=== PATIENT | male | born 1975 | race Caucasian/White ===

== ENCOUNTER 2017-04-30 10:07 | Day surgery (SDC) | payer OTHER ==
[2017-04-25 12:49] VITALS: BMI 30.7
--- NOTE | 2017-04-30 07:26 | HP ---
History & Physical Update - History History: No Change - Physical Physical: No Change - Assessment Assessment: No Change - Plan Plan: No Change (b/l LE pain...L>R.)
[~2017-04-30 10:07] MED LIST: CEFAZOLIN 2 GM in DEXTROSE 5%-WATER - 100 ML IVPB ONE; GABAPENTIN 300 MG CAPSULE (FP) PO ONE; oxyCODONE HCL 10 MG SUSTAINED ACTING TABLET PO STA
[2017-04-30] MEDS ORDERED: BUPIVACAINE HCL/PF 2.5 MG/ML - 30 ML VIAL IJ ONE (10:44)
[2017-04-30] MEDS ORDERED: LIDOCAINE 1%/EPI 1:100000 (20 ML MULTI DOSE VIAL) ONE (10:44)
[2017-04-30] MEDS ORDERED: methylPREDNISolone ACET (DEPO) 40 MG/1 ML VIAL ONE (10:48)
[2017-04-30] MEDS ORDERED: BUPIVACAINE HCL/PF 0.5% (5MG/ML) 10 ML VIAL ONE (10:53)
[2017-04-30] MEDS ORDERED: MIDAZOLAM HCL 2 MG/2 ML SINGLE DOSE VIAL ONE ×4 (10:54→12:30)
[2017-04-30] MEDS ORDERED: LIDOCAINE 1%/EPI 1:100000 (50 ML MULTI DOSE VIAL) INF ONE (11:28)
[2017-04-30] MEDS ORDERED: THROMBIN (BOVINE) 5,000 UNIT VIAL TP ONE (12:05)
[2017-04-30] MEDS ORDERED: BUPIVACAINE HCL/PF 0.25% (2.5MG/ML) 10 ML VIAL IJ ONE (12:06)
[2017-04-30] MEDS ORDERED: DEXAMETHASONE SOD PHOSPHATE 20 MG/5 ML VIAL IVPB ONE (12:56)
[2017-04-30] MEDS ORDERED: GUM MASTIC/STORAX/MSAL/ALCOHOL 1 DRP DROPSBTL MC ONE (13:13)
--- NOTE | 2017-04-30 13:27 | OP ---
Operative Note - Note: Operative Date: 04/30/17 Pre-Operative Diagnosis: Lumbar stenosis; radiculopathy Operation: L4-S1 laminectomy (bilateral) Post-Operative Diagnosis: Same as Pre-op Surgeon: Deejay Escamilla Emd Teacher: Maximiliano Hernandez Anesthesiologist/PRESCRIPTION BENEFIT SPECIALIST: Xavier Hernández Anesthesia: Spinal Estimated Blood Loss (mls): 25 Fluid Volume Replaced (mls): 1,000 Operative Report Dictated: Yes
[2017-04-30] MEDS ORDERED: traMADol HCL 50 MG TABLET PO ONE (13:28)
[2017-04-30] MEDS ORDERED: ACETAMINOPHEN 1000 MG/100 ML VIAL (NON FORMULARY) IVPB ONE (13:28)
--- NOTE | 2017-04-30 13:28 | SURG ---
Surgery Garment Examiner Note Garment Examiner: Maximiliano Hernandez PA-C Date of Service: 04/30/17 Diagnosis: Spinal stenosis Procedure: L4-S1 laminectomy (bilateral) I was present for the entirety of the operative procedure. For further detail, please refer to operative report. Visit type - Case Type Case Type: Scheduled Admission - New patient This patient is new to me today: Yes Date on this admission: 04/30/17
[2017-04-30] MEDS ORDERED: oxyCODONE HCL 5 MG TABLET PO PRN (13:35)
[2017-04-30] MEDS ORDERED: ONDANSETRON 4 MG/2 ML VIAL IVPUSH PRN (13:35)
[2017-04-30] MEDS ORDERED: PROMETHAZINE HCL 25 MG/1 ML VIAL IVPUSH PRN (13:35)
[2017-04-30] MEDS ORDERED: LACTATED RINGERS SOLUTION 1,000 ML IV SCH (13:45)
[2017-04-30] MEDS ORDERED: oxyCODONE HCL 5 MG TABLET ONE ×2 (15:42→15:44)
[2017-04-30 18:36] VITALS: TEMP 98.2
[2017-04-30 18:55] VITALS: BP 122/70; PULSE 72
--- NOTE | 2017-05-01 07:24 | OP ---
DATE OF OPERATION: 04/30/2017 PREOPERATIVE DIAGNOSIS: Spinal stenosis, L4-L5. POSTOPERATIVE DIAGNOSIS: Spinal stenosis, L4-L5. PROCEDURE PERFORMED: Laminectomy, L4-L5, L5-S1. SURGEON: Deejay Escamilla MD VEGETABLE FARMER: EDWIN Lara ESTIMATED BLOOD LOSS: 50 mL. INTRAVENOUS FLUID: Per Anesthesia. COMPLICATIONS: There were none. ANESTHESIA: Spinal. DISPOSITION: Patient brought to the PACU in stable condition. INDICATIONS FOR SURGERY: The patient is a 41-year-old gentleman who has been suffering from pain from his back down his legs. X-rays and MRI were completed, which noted that he had spinal stenosis at L4-L5 and L5-S1. He had gone through an exhaustive course of treatment for this which included medications, physical therapy, as well as injections. Unfortunately, his pain continued to persist despite all this. At this point, risks, benefits, and alternatives were discussed, and the patient consented to surgery. OPERATIVE NOTE: Patient was brought to the operating room by anesthesia staff. After appropriate patient identification was performed, spinal anesthesia was given. The patient was able to position himself prone onto the Socrates frame. All areas of bony prominences were well-padded at this time. The needle was placed into his back to chato off the L4 and S1 segments. An x-ray was taken to confirm the needles track. The needle was removed, and 10 mL of lidocaine with epinephrine was injected into his back at this time. His back was prepped and draped in a sterile manner. At this point, a time-out was completed. An incision was made from the top of L4 down to the bottom of S1. Dissection was carried down to the fascia. Fascia was split open at this time, and appropriate retractors were then placed in. A spinal needle was placed onto the L4 lamina to chato off the L4-L5 level. An x-ray was taken to confirm this was correct. At this point, a microscope was brought in. The L4-L5 and L5-S1 interspinous ligament was removed. The L5 spinous process was removed. A james was used to remove the lamina. Segment was identified and removed, and complete decompression was performed, such that by the end of the procedure, the L5 and S1 nerve roots appeared to be well decompressed. All bleeding was well controlled at this time. Steroids were placed over the nerve root. Floseal was placed over that. The fascia was closed with a No. 1 Vicryl suture. The subcutaneous tissues were closed with 2-0 Vicryl suture. Skin was closed with 3-0 Monocryl suture. Dermabond was applied. Steri-Strips were applied, and sterile dressings applied. Patient was placed supine on the OR bed and was brought to the PACU in stable condition. Brandie STOCK/[id number]
== END 2017-04-30 16:30 | disposition home or self-care (01) ==
LOC: FASU 10:07
PROVIDERS: ATTEND Orthopaedic Surgery Orthopaedic Surgery of the Spine
PROC: 01NB0ZZ Release Lumbar Nerve, Open Approach (ICD-10-PCS; principal; 2017-04-30 11:16)
DX: M48.06 Spinal stenosis, lumbar region (principal); M48.07 Spinal stenosis, lumbosacral region
CPT/HCPCS: 72100-TC; 94760; J8540

== ENCOUNTER 2017-05-22 14:42 | Emergency (ER) | payer OTHER ==
--- NOTE | 2017-05-22 15:23 | PDOC ---
History of Present Illness - History of Present Illness Initial Comments: 05/22/17 15:32 The patient is a 41 year old male, with a significant past medical history of L4 -S1 laminectomy on 04/30/[address] Villalba and EDWIN Lara for lumbar stenosis and radiculopathy, who presents to the emergency department with complaint of persistent pain to his left lower since 1 week s/p surgery on 04/30/17. The patient states he saw the surgeon a week following his surgery and was given prescription for percocet. He also reports having an epidural about a week after surgery with his pain management physician. He denies pain relief from the epidural and percocets. He states he need to take 10 percocets before feeling pain relief. He also states he does not have any percocet left. He also reports receiving a prescription for gabapentin, but denies filling the prescription. He denies chest pain, shortness of breath, headache and dizziness. He denies fever, chills, nausea, vomit, diarrhea and constipation. He denies dysuria, frequency, urgency and hematuria. Allergies: NKDA Pain Management: Dr. Rafita Urbano ([phone]) <Marysol Hauser - Last Filed: 05/22/17 15:56> - General History Source: Patient Exam Limitations: No Limitations <Sowmya De - Last Filed: 05/22/17 16:04> - General Chief Complaint: Back Pain Stated Complaint: LOWER BACK PAIN, LEFT LEG Time Seen by Provider: 05/22/17 15:06 Past History <Marysol Hauser - Last Filed: 05/22/17 15:56> - Past Medical History Anemia: No Asthma: No Cancer: No Cardiac Disorders: No CVA: No COPD: No CHF: No Dementia: No Diabetes: No GI Disorders: Yes (BENÍTEZ'S ESOPHAGUS 2009) Disorders: No HTN: No Hypercholesterolemia: No Liver Disease: No Seizures: No Thyroid Disease: No - Surgical History Abdominal Surgery: No Appendectomy: No Cardiac Surgery: No Cholecystectomy: No Lung Surgery: No Neurologic Surgery: No Orthopedic Surgery: No - Psycho/Social/Smoking Cessation Hx Anxiety: No Suicidal Ideation: No Smoking History: Former smoker Have you smoked in the past 12 months: No If you are a former smoker, when did you quit?: 2007 Information on smoking cessation initiated: No Hx Alcohol Use: No Drug/Substance Use Hx: No Substance Use Type: Alcohol Hx Substance Use Treatment: No <Sowmya De - Last Filed: 05/22/17 16:04> - Past Medical History Allergies/Adverse Reactions: Allergies Allergy/AdvReac Type Severity Reaction Status Date / Time No Known Drug Allergies Allergy Verified 05/22/17 14:43 Home Medications: Ambulatory Orders Oxycodone HCl/Acetaminophen [Percocet 5-325 mg Tablet] 1 tab PO TID PRN Orphenadrine Citrate 100 mg PO Q12H PRN #20 tablet.er 04/30/17 Tramadol HCl 50 mg PO Q6H PRN #30 tablet MDD 4 04/30/17 Review of Systems - Review of Systems Able to Perform ROS?: Yes Comments:: 05/22/17 15:33 GENERAL/CONSTITUTIONAL: No fever or chills. No weakness. HEAD, EYES, EARS, NOSE AND THROAT: No change in vision. No ear pain or discharge. No sore throat. CARDIOVASCULAR: No chest pain or shortness of breath. RESPIRATORY: No cough, wheezing, or hemoptysis. GASTROINTESTINAL: No nausea, vomiting, diarrhea or constipation. GENITOURINARY: No dysuria, frequency, or change in urination. MUSCULOSKELETAL: (+) right lower extremity pain. No joint pain or muscle swelling. No neck. SKIN: No rash NEUROLOGIC: No headache, vertigo, loss of consciousness, or change in strength/ sensation. ENDOCRINE: No increased thirst. No abnormal weight change. HEMATOLOGIC/LYMPHATIC: No anemia, easy bleeding, or history of blood clots. ALLERGIC/IMMUNOLOGIC: No hives or skin allergy. <Marysol Hauser - Last Filed: 05/22/17 15:56> *Physical Exam - Vital Signs Last Vital Signs Temp Pulse Resp BP Pulse Ox 99.3 F 98 H 20 152/101 97 05/22/17 14:43 05/22/17 14:43 05/22/17 14:43 05/22/17 14:43 05/22/17 14:43 - Physical Exam Comments: 05/22/17 15:34 GENERAL: Awake, alert, and fully oriented, in no acute distress HEAD: No signs of trauma EYES: PERRLA, EOMI, sclera anicteric, conjunctiva clear ENT: Auricles normal inspection, hearing grossly normal, nares patent, oropharynx clear without exudates. Moist mucosa NECK: Normal ROM, supple, no lymphadenopathy, JVD, or masses LUNGS: Breath sounds equal, clear to auscultation bilaterally. No wheezes, and no crackles HEART: Regular rate and rhythm, normal S1 and S2, no murmurs, rubs or gallops ABDOMEN: Soft, nontender, normoactive bowel sounds. No guarding, no rebound. No masses EXTREMITIES: Normal range of motion, no edema. No clubbing or cyanosis. No cords, erythema, or tenderness NEUROLOGICAL: Cranial nerves II through XII grossly intact. Normal speech, normal gait SKIN: Warm, Dry, normal turgor, no rashes or lesions noted. <Marysol Hauser - Last Filed: 05/22/17 15:56> - Vital Signs Last Vital Signs Temp Pulse Resp BP Pulse Ox 99.3 F 98 H 20 152/101 97 05/22/17 14:43 05/22/17 14:43 05/22/17 14:43 05/22/17 14:43 05/22/17 14:43 <Sowmya De - Last Filed: 05/22/17 16:04> Medical Decision Making - Medical Decision Making 05/22/17 15:34 Dr. Rafita Urbano was paged requesting a call back for doctor to doctor consult at 15:31 05/22/17 15:42 Dr. Andi Villalba, orthopedic surgeon, was paged via phone answering service at this time and the patients case was discussed. Dr. Villalba reports the patients was supposed to brain picker pain medication and a medrol dose pack prescribed by Dr. Urbano (Pain Management) for the patient today, however, failed to do so. Dr. Villalba suggested us to treat the patients pain at this time and possible give the patient a Valium and have follow-up with pain management. Dr. Urbano returned the call at 15:50 and the patients case was discussed. Dr. Urbano states he will see the patient in the office tomorrow. Documentation prepared by Marysol Hauser, acting as medical front desk coordinator for Sowmya De MD <Marysol Hauser - Last Filed: 05/22/17 15:56> - Medical Decision Making 05/22/17 15:20 41 yo male with h/o recent laminectomy [address] Hernandez [address] Dr Andi Villalba, currently taking percocet for pain. here today because pain is unbearable. started one week post op. lower back radiating down his left leg. pain goes to fuller knee and ankle. no f/c no mod factors. d/w surgeon 2 weeks ago for post op who started him on percocet and epidural. states he ran out of percocet so here for pain. surgeon called in gabapentin which he hasn't filled yet. pt states he is addicted to the opiates, and had a bottle pills which was gone in few days. has been on percocet 10 mg prior to surgery. also has had several epidurals, and been on steroids, and was recently given gabapentin which he has not picked up yet. 05/22/17 15:39 05/22/17 16:01 dW pt pain management doctor dr urbano, who states pt has prescription waiting for him at Dr. Escamilla's office for percocet 10/ 325 # 30, and medrol dose alfie. jose maria see pt in the office tomorrow. orthopedic surgeon Dr Andi Parrish notified, that there is medication in the office that the pt is supposed to brain picker. <Sowmya De - Last Filed: 05/22/17 16:04> *DC/Admit/Observation/Transfer <Marysol Hauser - Last Filed: 05/22/17 15:56> - Discharge Dispostion Admit: No <Sowmya De - Last Filed: 05/22/17 16:04> Diagnosis at time of Disposition: Back pain - Discharge Dispostion Disposition: HOME Condition at time of disposition: Improved - Patient Instructions Printed Discharge Instructions: Back Pain (Alternative Therapy) Additional Instructions: you can take percocet 10/ 325 which has been prescribed by Dr Escamilla. you can see your pain management doctor Dr Urbano in the office tomorrow. call to schedule. return for any problems or concerns such as weaknes numbness tingling or any fever.
[2017-05-22 15:28] VITALS: BP 152/101; PULSE 98; TEMP 99.3; BMI 31.4
[2017-05-22] MEDS ORDERED: KETOROLAC TROMETHAMINE 60 MG/2 ML VIAL IM ONE (15:32)
[2017-05-22] MEDS ORDERED: diazePAM 5 MG TABLET PO ONE (15:32)
[2017-05-22] MEDS ORDERED: diazePAM 5 MG TABLET ONE (15:35)
[2017-05-22] MEDS ORDERED: KETOROLAC TROMETHAMINE 60 MG/2 ML VIAL ONE (15:35)
== END 2017-05-22 16:28 | disposition home or self-care (01) ==
LOC: FER 14:42
PROC: 3E0233Z Introduction of Anti-inflammatory into Muscle, Percutaneous Approach (ICD-10-PCS; principal; 2017-05-22)
DX: M54.5 Low back pain (principal); Z87.891 Personal history of nicotine dependence; K22.70 Barrett's esophagus without dysplasia
CPT/HCPCS: 99282-25

== ENCOUNTER 2017-05-28 14:59 | Inpatient (IN) | payer OTHER ==
[2017-05-28 15:06] VITALS: BMI 31.4
--- NOTE | 2017-05-28 15:40 | PDOC ---
History of Present Illness - General Chief Complaint: Pain Stated Complaint: POST-OP (PCP SENT) Time Seen by Provider: 05/28/17 15:17 History Source: Patient Exam Limitations: No Limitations - History of Present Illness Initial Comments: 05/28/17 15:40 CHIEF COMPLAINT: Back pain HISTORY OF PRESENT ILLNESS: This is an otherwise healthy 41 year old male who underwent L4-S1 laminectomy (bilateral) on 04/[address] Escamilla. He has had persistent, worsening low back pain and left leg weakness since then. He had an epidural at [facility] without relief. He is sent in by his neurosurgeon for revision of a dural tear and pseudomeningocele. Vital signs on arrival are notable for P of 96. REVIEW OF SYSTEMS: GENERAL/CONSTITUTIONAL: No fever or chills. No weakness. No weight change. HEAD, EYES, EARS, NOSE AND THROAT: No change in vision. No ear pain or discharge. No sore throat. CARDIOVASCULAR: No chest pain or palpitations. RESPIRATORY: No cough, wheezing, or shortness of breath. GASTROINTESTINAL: No nausea, vomiting, diarrhea or constipation. GENITOURINARY: No dysuria, frequency, or change in urination. MUSCULOSKELETAL: See HPI. SKIN: No rash or easy bruising. NEUROLOGIC: No headache, vertigo, or loss of consciousness. Left leg numbness. PSYCHIATRIC: No depression or anxiety. ENDOCRINE: No increased thirst. No abnormal weight change. HEMATOLOGIC/LYMPHATIC: No anemia, easy bleeding, or history of blood clots. ALLERGIC/IMMUNOLOGIC: No hives or skin allergy. No latex allergy. PHYSICAL EXAM: GENERAL: The patient is awake, alert, and fully oriented, in no acute distress. HEAD: Normal with no signs of trauma. ENT: Pupils equal, round and reactive to light, extraocular movements intact, sclera anicteric, conjunctiva clear. Neck supple. LUNGS: Clear to auscultation bilaterally. Normal excursion. No respiratory distress or use of accessory muscles. CV: RRR, S1/S2, no MRG. Cap refill < 2 sec. ABDOMEN: Soft, non-distended, non-tender. EXTREMITIES: Pain with left straight leg raise. 4/5 LLE strength. No saddle anesthesia. Lumbar frederick-incision fullness without tenderness. NEUROLOGICAL: Normal speech. CN II-XII grossly intact. PSYCH: Normal mood, normal affect. SKIN: Warm, dry, normal turgor, no rashes or lesions noted. Past History - Past Medical History Allergies/Adverse Reactions: Allergies Allergy/AdvReac Type Severity Reaction Status Date / Time No Known Drug Allergies Allergy Verified 05/28/17 15:06 Home Medications: Ambulatory Orders Oxycodone HCl/Acetaminophen [Percocet 5-325 mg Tablet] 1 tab PO TID PRN Orphenadrine Citrate 100 mg PO Q12H PRN #20 tablet.er 04/30/17 Tramadol HCl 50 mg PO Q6H PRN #30 tablet MDD 4 04/30/17 Anemia: No Asthma: No Cancer: No Cardiac Disorders: No CVA: No COPD: No CHF: No Dementia: No Diabetes: No GI Disorders: Yes (BENÍTEZ'S ESOPHAGUS 2009) Disorders: No HTN: No Hypercholesterolemia: No Liver Disease: No Seizures: No Thyroid Disease: No - Surgical History Abdominal Surgery: No Appendectomy: No Cardiac Surgery: No Cholecystectomy: No Lung Surgery: No Neurologic Surgery: No Orthopedic Surgery: No - Psycho/Social/Smoking Cessation Hx Anxiety: No Suicidal Ideation: No Smoking History: Never smoked Have you smoked in the past 12 months: No If you are a former smoker, when did you quit?: 2007 Information on smoking cessation initiated: No Hx Alcohol Use: No Drug/Substance Use Hx: No Substance Use Type: Alcohol Hx Substance Use Treatment: No *Physical Exam - Vital Signs Last Vital Signs Temp Pulse Resp BP Pulse Ox 98 F 106 H 18 112/59 98 05/28/17 15:03 05/28/17 15:03 05/28/17 15:03 05/28/17 15:03 05/28/17 15:03 ED Treatment Course - LABORATORY CBC & Chemistry Diagram: 05/28/17 15:42 05/28/17 15:42 - RADIOLOGY Radiology Studies Ordered: Category Date Time Status CHEST X-RAY PORTABLE* [RAD] Stat Radiology 05/28/17 15:18 Ordered Medical Decision Making - Medical Decision Making 05/28/17 17:27 A/P: 41 year old male with intractable pain s/p laminectomy. 1. Pre-op labs 2. Percocet x 2 tabs for pain 3. Admission for surgery tomorrow *DC/Admit/Observation/Transfer Diagnosis at time of Disposition: Dural tear, Pseudomeningocele of spinal cord - Discharge Dispostion Admit: Yes
[2017-05-28 15:54] LABS: EOSINOPHIL 3.7 % (0-4.5); MCH 30.3 pg (25.7-33.7); MCHC 33.8 g/dl (32.0-35.9); MEAN CELL VOLUME 89.7 fl (80-96); MEAN PLT VOLUME 7.1 fl (7.5-11.1); PLATELET COUNT 320 K/MM3 (134-434); RDW 14.8 % (11.9-15.9); WHITE BLOOD COUNT 8.9 K/mm3 (4.0-10.0)
[2017-05-28 16:08] LABS: ALBUMIN 3.2 g/dl (3.4-5.0); ANION GAP 10 (8-16); CALCIUM 8.5 mg/dL (8.5-10.1); CO2 25 mmol/L (21-32); CREATININE 0.7 mg/dL (0.7-1.3); GLUCOSE,RANDOM 87 mg/dL (74-106); SGOT/AST 26 U/L (15-37); SGPT/ALT 61 U/L (12-78)
[2017-05-28 16:09] LABS: ALK PHOS 44 U/L (45-117); BILIRUBIN,TOTAL 0.4 mg/dL (0.2-1.0); TOT PROT 6.3 g/dl (6.4-8.2)
[2017-05-28 16:25] LABS: INR 1.16 (0.82-1.09); PROTHROMBIN TIME (PATIENT) 12.8 SEC (9.98-11.88)
--- NOTE | 2017-05-28 18:18 | HP ---
Admitting History and Physical - Primary Care Physician PCP: Jayesh Hernandez - Admission History of Present Illness: 41 year old male who underwent L4-S1 laminectomy (bilateral) on 04/[address] Escamilla. He has had persistent, worsening low back pain and left leg weakness since then. He had an epidural at [facility] without relief. He is sent in by his neurosurgeon for revision of a dural tear and pseudomeningocele. - Past Medical History Musculoskeletal: Yes: Chronic low back pain - Smoking History Smoking history: Never smoked Have you smoked in the past 12 months: No If you are a former smoker, when did you quit?: 2007 - Alcohol/Substance Use Hx Alcohol Use: No Home Medications - Allergies Allergies/Adverse Reactions: Allergies Allergy/AdvReac Type Severity Reaction Status Date / Time No Known Drug Allergies Allergy Verified 05/28/17 15:06 - Home Medications Home Medications: Ambulatory Orders Oxycodone HCl/Acetaminophen [Percocet 5-325 mg Tablet] 1 tab PO QID PRN Physical Examination Vital Signs: Vital Signs Temperature 98 F 05/28/17 15:03 Pulse Rate 75 05/28/17 17:14 Respiratory Rate 18 05/28/17 17:14 Blood Pressure 110/74 05/28/17 17:14 O2 Sat by Pulse Oximetry (%) 96 05/28/17 17:14 Constitutional: Yes: No Distress HENT: Yes: Atraumatic Neck: Yes: Supple Cardiovascular: Yes: Regular Rate and Rhythm Respiratory: Yes: CTA Bilaterally Gastrointestinal: Yes: Normal Bowel Sounds Extremities: Yes: WNL Neurological: Yes: Alert, Oriented Problem List - Problems (1) Dural tear Assessment/Plan: neuro surgeon saw pt for OR in am Code(s): G96.11 - DURAL TEAR (2) Pseudomeningocele of spinal cord Code(s): G96.19 - OTHER DISORDERS OF MENINGES, NOT ELSEWHERE CLASSIFIED (3) Back pain Assessment/Plan: prn pain meds npo after midnight for procedure in am Code(s): M54.9 - DORSALGIA, UNSPECIFIED Assessment/Plan Laboratory Tests 05/28/17 05/28/17 05/28/17 15:37 15:42 15:42 WBC 8.9 RBC 5.04 Hgb 15.3 Hct 45.2 MCV 89.7 MCH 30.3 MCHC 33.8 RDW 14.8 Plt Count 320 MPV 7.1 L Neutrophils % 65.0 Lymphocytes % 21.2 Monocytes % 9.1 Eosinophils % 3.7 Basophils % 1.0 INR 1.16 H Sodium Potassium Chloride Carbon Dioxide Anion Gap BUN Creatinine Creat Clearance w eGFR Random Glucose Calcium Total Bilirubin AST ALT Alkaline Phosphatase Total Protein Albumin Blood Type B POSITIVE Antibody Screen Negative 05/28/17 15:42 WBC RBC Hgb Hct MCV MCH MCHC RDW Plt Count MPV Neutrophils % Lymphocytes % Monocytes % Eosinophils % Basophils % INR Sodium 140 Potassium 4.1 Chloride 105 Carbon Dioxide 25 Anion Gap 10 BUN 13 Creatinine 0.7 Creat Clearance w eGFR > 60 Random Glucose 87 Calcium 8.5 Total Bilirubin 0.4 AST 26 ALT 61 Alkaline Phosphatase 44 L Total Protein 6.3 L Albumin 3.2 L Blood Type Antibody Screen Active Medications Generic Name Dose Route Start Last Admin Trade Name Freq PRN Reason Stop Dose Admin Docusate Sodium 100 mg 05/30/17 10:00 Colace - PO DAILY LEENA Heparin Sodium (Porcine) 5,000 unit 05/29/17 22:00 Heparin - SQ BID LEENA Hydromorphone HCl 0 mg 05/29/17 14:48 Dilaudid Priming Mixture Carrier - METAL SPRAY OPERATOR 06/05/17 14:29 METAL SPRAY OPERATOR LEENA Protocol Lactated Ringer's 1,000 mls @ 125 mls/hr 05/29/17 14:48 Lactated Ringers Solution IV ASDIR LEENA Cefazolin Sodium 1 gm/ 50 mls @ 100 mls/hr 05/29/17 15:45 Dextrose IVPB 05/30/17 02:29 Q8H-IV LEENA Ondansetron HCl 4 mg 05/29/17 14:48 Zofran Injection IVPUSH 05/30/17 02:29 Q4H PRN NAUSEA AND/OR VOMITING Promethazine HCl 12.5 mg 05/29/17 14:48 Phenergan Injection - IVPB Q6H PRN NAUSEA AND/OR VOMITING
--- NOTE | 2017-05-28 18:21 | CONSULT ---
Consult - text type - Consultation Consultation Note: Butch Renteria is a 41 year old Malay male who reports a long history of back and leg pains. He is physically active and describes aggravating his condition several months ago while doing vigorous leg presses. Imaging demonstrated L34, L45 and L5S1 disc herniations with loss of disc space heights and some Modic changes. The patient was treated with a 2 level decompression at L45 and L5S1 by Dr. Deejay Escamilla at [facility] approximately four weeks ago in April 2017. The patient underwent awake spinal surgery and was able to be discharged the same day. As his incisional discomfort wore off, after one week, he began to complain of severe back and Left leg pains. The patient was referred for an epidural injection and did well for 24 hours. Unfortunately, since the day after the injection, he has had swelling in his back and paroxysms of severe radicular pain. These episodes are so painful that the patient cannot walk, move or even change position. The patient was seen in the ER at [facility] where MRI demonstrated some recurrent disc material at these two levels and persistence of the L34 fragment. There is CSF noted with a pseudomeningocele which extends through the fascia into the subcutaneous tissues. There is a suggestion of an incarcerated nerve root at the caudal extent of the exposure which is consistent with his clinical picture. On physical exam, the patient's wound is well healed, yet tense and somewhat warm and red. The patient stands with great difficulty and cannot change positions easily. He denies any headaches. I had a long discussion with the patient about his severe pain and current condition. I discussed a wide range of treatment options including, but not limited to various combinations of: repair of the durotomy/pseudomeningocele, decompression at 1, 2 or 3 levels, and fusion at 1, 2, or all 3 levels. I explained that more aggressive decompression will be more likely to resolve his current symptoms at the risk of elevating the need for a fusion into the future. 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 Balancing his severe pains and acute nerve root incarceration which is resulting in an unacceptable quality of life and the potential treatments for the various spine pathologies is challenging. After extensive discussion of the options and potential consequences, the patient asks that we proceed with Emergent exploration of his wound with reoperative exposure L45 and L5S1 as well as L34 decompression and discectomies at all 3 levels. This will also involve microsurgical repair of the durotomy and marsupialization of the pseudomeningocele cavity. I explained that the risks included, but were not limited to: , coma, paralysis, bleeding, infection, leakage of CSF possibly requiring spinal drainage or additional surgery and the need for additional surgery. I explained that there is a high likelihood of further disc reherniation or progression of instability requiring additional surgery, most likely a multilevel fusion. I offered the patient the option of seeking another opinion or another surgeon. All questions were answered. Informed consent was obtained. The patient asks that we proceed on an expedited basis. We will admit the patient to the hospital and prepare him for surgery in the morning. Plan: Admit Pain control NPO past midnight Preop Labs Natalia Shampoo/shower
[2017-05-28] MEDS: HYDROmorphone HCL CARPU-JECT 1 MG/1 ML DISP.SYRIN IVPB PRN ×2 (19:06→23:02)
[2017-05-28] MEDS ORDERED: ACETAMINOPHEN 325 MG TABLET (FP) PO PRN (19:43)
[2017-05-28] MEDS ORDERED: CHLORHEXIDINE GLUCONATE 4% CLEANSER FOR DECOLONIZATION TP SCH (22:00)
[2017-05-28] MEDS ORDERED: oxyCODONE HCL 5 MG TABLET ONE (23:43)
[2017-05-28] MEDS: oxyCODONE HCL 5 MG TABLET PO PRN (23:45)
[2017-05-29] MEDS: oxyCODONE HCL 5 MG TABLET PO PRN (05:30)
[2017-05-29] MEDS: HYDROmorphone HCL CARPU-JECT 1 MG/1 ML DISP.SYRIN IVPB PRN ×2 (06:12→09:16)
[2017-05-29 07:27] LABS: BASOPHIL 1.2 % (0-2.0); EOSINOPHIL 3.2 % (0-4.5); MCH 29.9 pg (25.7-33.7); MCHC 32.9 g/dl (32.0-35.9); MEAN PLT VOLUME 7.1 fl (7.5-11.1); NEUTROPHILS 62.6 % (42.8-82.8); PLATELET COUNT 304 K/MM3 (134-434); RDW 14.9 % (11.9-15.9); WHITE BLOOD COUNT 8.5 K/mm3 (4.0-10.0)
[2017-05-29 08:01] LABS: ANION GAP 5 (8-16); CALCIUM 8.5 mg/dL (8.5-10.1); CO2 32 mmol/L (21-32); GLUCOSE,RANDOM 76 mg/dL (74-106); SGOT/AST 23 U/L (15-37); SGPT/ALT 57 U/L (12-78)
[2017-05-29 08:04] LABS: ALK PHOS 43 U/L (45-117); BILIRUBIN,TOTAL 0.3 mg/dL (0.2-1.0); CREATININE 0.8 mg/dL (0.7-1.3); TOT PROT 6.1 g/dl (6.4-8.2)
[2017-05-29] MEDS ORDERED: LIDOCAINE HCL 0.5% EPINEPHRINE 1:200,000 50 ML VIAL IJ ONE (09:43)
[2017-05-29] MEDS ORDERED: GENTAMICIN SO4 80 MG/2 ML VIAL ONE ×2 (09:43→16:35)
[2017-05-29] MEDS ORDERED: DOCUSATE SODIUM 100 MG CAPSULE (FP) PO SCH (10:00)
[2017-05-29] MEDS ORDERED: PROPOFOL 20 ML ONE ×3 (10:05→16:42)
[2017-05-29] MEDS ORDERED: ROCURONIUM BROMIDE 50 MG/5 ML VIAL ONE ×3 (10:05→16:42)
[2017-05-29] MEDS ORDERED: MIDAZOLAM HCL 2 MG/2 ML SINGLE DOSE VIAL ONE ×2 (10:06→16:42)
[2017-05-29] MEDS ORDERED: LIDOCAINE HCL/PF 2% SDV 5ML VIAL ONE (10:07)
[2017-05-29] MEDS ORDERED: ceFAZolin SODIUM 1 GM VIAL ONE ×3 (11:18→23:43)
[2017-05-29] MEDS ORDERED: ceFAZolin SODIUM 1 GM VIAL IVPB ONE ×2 (11:20→17:06)
[2017-05-29] MEDS ORDERED: ONDANSETRON 4 MG/2 ML VIAL ONE ×3 (11:22→17:38)
[2017-05-29] MEDS ORDERED: DEXAMETHASONE SOD PHOSPHATE 4 MG/1 ML VIAL ONE ×3 (11:22→17:38)
[2017-05-29] MEDS ORDERED: BACITRACIN 50,000 UNITS VIAL TP ONE (11:33)
[2017-05-29] MEDS ORDERED: GELATIN, ABSORBABLE 100 EACH SPONGE TP ONE (11:33)
[2017-05-29] MEDS ORDERED: THROMBIN (BOVINE) 5,000 UNIT VIAL TP ONE ×2 (11:33→17:56)
--- NOTE | 2017-05-29 12:09 | EKG ---
Test Reason : Blood Pressure : / mmHG Vent. Rate : 074 BPM Atrial Rate : 074 BPM P-R Int : 130 ms QRS Dur : 102 ms QT Int : 376 ms P-R-T Axes : 051 -15 -13 degrees QTc Int : 417 ms NORMAL SINUS RHYTHM EARLY REPOLARIZATION PATTERN,CURRENT OF INJURY CANNOT BE EXCLUDED IVH BY VOLTAGE CRITERIA ATRIAL ENLARGMENT NO PREVIOUS ECGS AVAILABLE REPEAT EKG IF CLINICALLY INDICATED Confirmed by SUGAR LEONARD MD ([id number]) on 05/29/2017 12:08:52 PM Referred By: Confirmed By:SUGAR LEONARD MD
[2017-05-29] MEDS ORDERED: NEOSTIGMINE METHYLSULFATE 0.5 MG/ML - 10 ML MDV ONE ×2 (13:15→18:39)
[2017-05-29] MEDS ORDERED: GLYCOPYRROLATE 0.2 MG/1 ML VIAL ONE ×2 (13:15→18:39)
[2017-05-29] MEDS ORDERED: BUPIVACAINE HCL/PF 0.5% (5MG/ML) 10 ML VIAL ONE ×2 (13:46→16:35)
[2017-05-29] MEDS ORDERED: BUPIVACAINE HCL/PF 0.5% (5MG/ML) 10 ML VIAL IJ ONE ×2 (13:51→17:57)
[2017-05-29] MEDS ORDERED: METOPROLOL TARTRATE 5 MG/5 ML VIAL ONE (13:54)
[2017-05-29] MEDS ORDERED: HYDROmorphone HCL CARPU-JECT 2 MG/1 ML DISP.SYRIN IVPUSH ONE ×2 (14:20→14:30)
[2017-05-29] MEDS ORDERED: HYDROmorphone *PCA* 10MG/50ML DISP.SYRIN PCA ONE ×2 (14:25→14:40)
[2017-05-29] MEDS ORDERED: HYDROmorphone HCL CARPU-JECT 2 MG/1 ML DISP.SYRIN ONE ×2 (14:25→15:22)
[2017-05-29] MEDS ORDERED: DEXAMETHASONE SOD PHOSPHATE 4 MG/1 ML VIAL IVPUSH ONE (14:28)
[2017-05-29] MEDS ORDERED: ONDANSETRON 4 MG/2 ML VIAL IVPUSH PRN ×4 (14:28→19:05)
[2017-05-29] MEDS ORDERED: HYDROmorphone HCL CARPU-JECT 1 MG/1 ML DISP.SYRIN IVPUSH ONE (14:28)
[2017-05-29] MEDS ORDERED: PROMETHAZINE HCL 25 MG/1 ML VIAL IVPB PRN ×3 (14:28→19:02)
[2017-05-29] MEDS ORDERED: LACTATED RINGERS SOLUTION 1,000 ML IV SCH ×3 (14:30→19:02)
[2017-05-29] MEDS ORDERED: HYDROmorphone *PCA* 10MG/50ML DISP.SYRIN PCA SCH ×3 (14:30→19:02)
[2017-05-29] MEDS ORDERED: diazePAM CARPU-JECT 10 MG/2 ML DISP.SYRIN ONE (15:24)
[2017-05-29] MEDS ORDERED: diazePAM CARPU-JECT 10 MG/2 ML DISP.SYRIN IVPUSH ONE ×2 (15:26→15:30)
--- NOTE | 2017-05-29 15:30 | OP ---
Operative Note - Note: Operative Date: 05/29/17 Pre-Operative Diagnosis: pseudomenigocele, compression at L3-S1 Operation: wound exploration, repair of dural tear, L3-L4, L4-L5, L5-S1 with discectomy. L4-L5 and L3-L4 partial laminectomy Surgeon: Martínez Jerry [employer] Manager: Yojana Branham Anesthesiologist/SUPERVISOR CHLORINE LIQUEFACTION: Ishaan Parsons Anesthesia: General Specimens Removed: L3-L4, L4-L5, L5-S1 disc Estimated Blood Loss (mls): 50 Drains, Volume Out (mls): 200 (gil) Fluid Volume Replaced (mls): 1,100 Operative Report Dictated: Yes
[2017-05-29] MEDS ORDERED: CEFAZOLIN 1 GM in DEXTROSE 5%-WATER - 50 ML IVPB SCH (15:45)
[2017-05-29] MEDS ORDERED: SODIUM CHLORIDE 0.9% P/F 10 ML VIAL IJ ONE (16:44)
--- NOTE | 2017-05-29 17:00 | PN ---
Progress Note, Physician History of Present Illness: s/p back surgery - Current Medication List Current Medications: Active Medications Docusate Sodium (Colace -) 100 mg PO DAILY LEENA Heparin Sodium (Porcine) (Heparin -) 5,000 unit SQ BID LEENA Hydromorphone HCl (Dilaudid Sheriff Sergeant -) 0 mg TORCH SHEARER TORCH SHEARER LEENA PRN Reason: Protocol Stop: 06/05/17 14:29 Lactated Ringer's (Lactated Ringers Solution) 1,000 mls @ 125 mls/hr IV ASDIR LEENA Cefazolin Sodium 1 gm/ (Dextrose) 50 mls @ 100 mls/hr IVPB Q8H-IV LEENA Stop: 05/30/17 02:29 Ondansetron HCl (Zofran Injection) 4 mg IVPUSH Q4H PRN PRN Reason: NAUSEA AND/OR VOMITING Stop: 05/30/17 02:29 Promethazine HCl (Phenergan Injection -) 12.5 mg IVPB Q6H PRN PRN Reason: NAUSEA AND/OR VOMITING - Objective Vital Signs: Vital Signs Temperature 98.0 F 05/29/17 14:12 Pulse Rate 100 H 05/29/17 16:30 Respiratory Rate 16 05/29/17 16:30 Blood Pressure 132/68 05/29/17 16:30 O2 Sat by Pulse Oximetry (%) 100 05/29/17 16:30 Constitutional: Yes: No Distress HENT: Yes: Atraumatic Neck: Yes: Supple Cardiovascular: Yes: Regular Rate and Rhythm Respiratory: Yes: CTA Bilaterally Gastrointestinal: Yes: Normal Bowel Sounds Musculoskeletal: Yes: Other (dressing in place) Edema: No Neurological: Yes: Alert, Oriented Labs: CBC, BMP 05/29/17 06:00 05/29/17 06:00 INR, PTT INR 1.16 (0.82-1.09) H 05/28/17 15:42 Problem List - Problems (1) Dural tear Assessment/Plan: s/p surgical repair report noted Code(s): G96.11 - DURAL TEAR (2) Pseudomeningocele of spinal cord Code(s): G96.19 - OTHER DISORDERS OF MENINGES, NOT ELSEWHERE CLASSIFIED (3) Back pain Assessment/Plan: prn pain meds on regular diet Code(s): M54.9 - DORSALGIA, UNSPECIFIED
[2017-05-29] MEDS ORDERED: ACETAMINOPHEN 325 MG TABLET (FP) PO PRN (18:52)
--- NOTE | 2017-05-29 18:56 | OP ---
Operative Note - Note: Operative Date: 05/29/17 Pre-Operative Diagnosis: nerve root compression, dural tear Operation: wound exploration, revision of durotomy repair Surgeon: Martínez Jerry Analysis Reporting Developer: Yojana Branham Anesthesiologist/[employer] DEVELOPER: Ishaan Parsons Anesthesia: General Estimated Blood Loss (mls): 10 Drains, Volume Out (mls): 500 (gil) Fluid Volume Replaced (mls): 300 Operative Report Dictated: Yes
[2017-05-29] MEDS ORDERED: PROMETHAZINE HCL 25 MG/1 ML VIAL IVPUSH PRN (19:05)
[2017-05-29] MEDS: LACTATED RINGERS SOLUTION 1,000 ML IV SCH (20:19)
[2017-05-29] MEDS ORDERED: HEPARIN NA (PORCINE) 5,000 UNITS/ML 1ML VIAL SQ SCH (22:00)
[2017-05-29] MEDS: HEPARIN NA (PORCINE) 5,000 UNITS/ML 1ML VIAL SQ SCH (23:02)
[2017-05-29] MEDS ORDERED: DEXTROSE 5%-WATER - 50 ML IVPB ONE (23:43)
[2017-05-30] MEDS: CEFAZOLIN 1 GM in DEXTROSE 5%-WATER - 50 ML IVPB SCH ×2 (01:20→09:24)
[2017-05-30 07:14] LABS: BASOPHIL 0.1 % (0-2.0); EOSINOPHIL 0.1 % (0-4.5); MCH 29.8 pg (25.7-33.7); MCHC 33.1 g/dl (32.0-35.9); MEAN CELL VOLUME 90.1 fl (80-96); NEUTROPHILS 86.4 % (42.8-82.8); PLATELET COUNT 358 K/MM3 (134-434)
[2017-05-30 07:35] LABS: ANION GAP 11 (8-16); CALCIUM 8.1 mg/dL (8.5-10.1); CO2 25 mmol/L (21-32); CREATININE 0.8 mg/dL (0.7-1.3); GLUCOSE,RANDOM 120 mg/dL (74-106)
[2017-05-30 08:25] VITALS: BP 115/88; PULSE 87; TEMP 98.1
[2017-05-30] MEDS ORDERED: ceFAZolin SODIUM 1 GM VIAL ONE (09:15)
[2017-05-30] MEDS ORDERED: DEXTROSE 5%-WATER - 50 ML IVPB ONE (09:16)
[2017-05-30] MEDS: HEPARIN NA (PORCINE) 5,000 UNITS/ML 1ML VIAL SQ SCH (09:24)
--- NOTE | 2017-05-30 09:39 | PN ---
Progress Note (short form) - Note Progress Note: POD #1 Alert. Laying flat in bed. Mild incisional tenderness. Pain controlled well via COOK HELPER JUICE. C/o numbness/tingling to left foot. Pain to left thigh and fuller resolved. Denies n/v/f/c, headache Last Vital Signs Temp Pulse Resp BP Pulse Ox 98.1 F 87 18 115/88 97 05/30/17 08:24 05/30/17 08:24 05/30/17 08:24 05/30/17 08:24 05/30/17 09:00 CBC, BMP 05/30/17 06:00 05/30/17 06:00 General: nad Back: dressing c/d/i. No hematoma Musculoskel: LLE 3/5 --> weakness with resistance. RLE unremarkable Neuro: CN 2-12 intact Problem List - Problems (1) Pseudomeningocele of spinal cord Assessment/Plan: POD #1 s/p wound exploration, repair of dural tear, L3-L4, L4-L5, L5-S1 with discectomy. L4-L5 and L3-L4 partial laminectomy 9/12. In PACU, patient experienced sever left foot pain. Unable to manage pain with narcotics. Patient was taken back to OR for revision of durotomy 9/12. Patient can lay supine in bed or ambulate Allowed to shower today DC COOK HELPER JUICE Starting PO pain management Stool softner --> Colace Regular diet Code(s): G96.19 - OTHER DISORDERS OF MENINGES, NOT ELSEWHERE CLASSIFIED (2) Dural tear Code(s): G96.11 - DURAL TEAR (3) Back pain Code(s): M54.9 - DORSALGIA, UNSPECIFIED
[2017-05-30] MEDS ORDERED: ACETAMINOPHEN 325 MG TABLET (FP) PO PRN (09:47)
[2017-05-30] MEDS ORDERED: DOCUSATE SODIUM 100 MG CAPSULE (FP) PO SCH ×2 (10:00)
--- NOTE | 2017-05-30 10:14 | SURG ---
Surgery Creative Services Director Note Creative Services Director: Yojana Branham PA-C Date of Service: 05/29/17 Diagnosis: pseudomenigocele, compression at L3-S1 Procedure: wound exploration, repair of dural tear, L3-L4, L4-L5, L5-S1 with discectomy. L4 -L5 and L3-L4 partial laminectomy I was present for the entirety of the operative procedure. For further detail, please refer to operative report. Visit type - Case Type Case Type: ED Admission - Emergency Emergency Visit: Yes ED Registration Date: 05/28/17 Care time: The patient presented to the Emergency Department on the above date and was hospitalized for further evaluation of their emergent condition. - New patient This patient is new to me today: Yes Date on this admission: 05/30/17 - Critical Care Critical Care patient: No
--- NOTE | 2017-05-30 10:15 | SURG ---
Surgery Test Tech Note Test Tech: Yojana Branham PA-C Date of Service: 05/29/17 Diagnosis: nerve root compression, dural tear Procedure: wound exploration, revision of durotomy repair I was present for the entirety of the operative procedure. For further detail, please refer to operative report. Visit type - Case Type Case Type: ED Admission - Emergency Emergency Visit: Yes ED Registration Date: 05/28/17 Care time: The patient presented to the Emergency Department on the above date and was hospitalized for further evaluation of their emergent condition. - New patient This patient is new to me today: Yes Date on this admission: 05/30/17 - Critical Care Critical Care patient: No
[2017-05-30] MEDS ORDERED: oxyCODONE HCL 5 MG TABLET PO PRN ×3 (11:03→14:19)
--- NOTE | 2017-05-30 12:39 | PN ---
Progress Note (short form) - Note Progress Note: Post op day#1.S/P L3-S1 Laminectomy with disectomy and meningocele and durotomy repair under Ga uneventful.Patient stable and does not c/o pain.So Dilaudid PRESS CLIPPINGS CUTTER AND PASTER IS DC.Patient on PO pain medication.No any anesthesia related problem.Patient DC from the anesthesia care.
--- NOTE | 2017-05-30 12:50 | PN ---
Progress Note (short form) - Note Progress Note: Patient recovering well from surgery. Discussed activity levels and restrictions. Patient is ready for discharge from surgical standpoint. All questions answered. Wound clean, dry and intact. No headaches. Preoperative pain has resolved. Mild Left dorisiflexion weakness persists, however is improving.
[2017-05-30] MEDS: LACTATED RINGERS SOLUTION 1,000 ML IV SCH (13:32)
[2017-05-30] MEDS ORDERED: oxyCODONE HCL 5 MG TABLET PO ONE ×2 (14:17→14:18)
--- NOTE | 2017-05-30 16:27 | DS ---
Physical Examination Vital Signs: Vital Signs Temperature 98.1 F 05/30/17 08:24 Pulse Rate 87 05/30/17 08:24 Respiratory Rate 18 05/30/17 08:24 Blood Pressure 115/88 05/30/17 08:24 O2 Sat by Pulse Oximetry (%) 97 05/30/17 09:00 Constitutional: Yes: No Distress HENT: Yes: Atraumatic Neck: Yes: Supple Cardiovascular: Yes: Regular Rate and Rhythm Respiratory: Yes: CTA Bilaterally Gastrointestinal: Yes: Normal Bowel Sounds Musculoskeletal: Yes: Other (back dressing in place and dry) Extremities: Yes: WNL Neurological: Yes: Alert, Oriented Labs: CBC, BMP 05/30/17 06:00 05/30/17 06:00 Discharge Summary Reason For Visit: PSEUDOMENINGOCELE OF SPINAL CORD Current Active Problems Dural tear (Acute) Pseudomeningocele of spinal cord (Acute) - Instructions Diet, Activity, Other Instructions: Dear RANDALL COLEMAN, Post Operative Instructions Physical activity Resume your normal everyday activity as tolerated no heavy lifting or exercise until seen by your surgeon. You may walk unlimited amounts of and climb stairs. Wound care If you have a bandage, leave it on, and keep dry for 48 - 72 hours. Keep incision clean/dry and covered at all times. Your allowed to shower. Wrap saran wrap around waist/back. If dressing gets wet , pat dry. No prolonged sitting If you must sit, a recliner is preferable Diet There are no dietary restrictions. Eat healthy, high-fiber foods. Drink 6 to 8 glasses of liquid each day. This will assist in keeping your bowels are regular. Pain management You may take Tylenol or acetaminophen or Ibuprofen (for example, Motrin, Advil etc.) Any pain prescription medication ordered should be taken as prescribed for moderate to severe pain. Call Dr. Jerry for any of the following: Severe pain not relieved by medication Fever of 101 or higher Excessive bleeding or drainage on dressing Inability to urinate Call the office at [phone] for a post operative appointment in 14 days. call office for instructions regarding dressing change Referrals: Martínez Jerry MD, FAANS [Staff Physician] - Jayesh Hernandez MD [Staff Physician] - - Home Medications Comprehensive Discharge Medication List: Ambulatory Orders Oxycodone HCl/Acetaminophen [Percocet 5-325 mg Tablet] 1 tab PO QID PRN dc home see instruction on dc papers
--- NOTE | 2017-05-31 14:05 | PATH ---
Surgical Pathology Report Patient Name: RANDALL COLEMAN Med. Rec. #: [id number] /Age/Gender: 1975 (Age: 41) / M Account: [id number] Location: [facility] MED/SURG Taken: 05/29/2017 Received: 05/30/2017 Reported: 05/31/2017 Physicians: Martínez Nam M.D. Specimen(s) Received A: DISC L5-S1 B: DISC L4-L5 C: DISC L3-L4 Clinical History Pseudomeningocele of spinal cord, incarcerated nerve roots L3-L4, L5-S1 Final Diagnosis A. INTERVERTEBRAL DISC, L5-S1, DISCECTOMY: CARTILAGE AND BONE WITH DEGENERATIVE CHANGES. B. INTERVERTEBRAL DISC, L4-L5, DISCECTOMY: CARTILAGE WITH DEGENERATIVE CHANGES. C. INTERVERTEBRAL DISC, L3-L4, DISCECTOMY: CARTILAGE WITH DEGENERATIVE CHANGES. Electronically Signed Nicholas Guerra M.D. Gross Description A. Received in formalin labeled "disc L5-S1," is a 2.0 x 1.7 x 0.3 cm aggregate of mena fragments of fibrocartilaginous tissue. The specimen is submitted in toto in one cassette. B. Received in formalin labeled "L4-L5," is a 1.5 x 1.2 x 0.3 cm aggregate of mena fragments of fibrocartilaginous tissue. The specimen is submitted in toto in one cassette. C. Received in formalin labeled "disc L3-L4," is a 1.1 x 1.0 x 0.3 cm aggregate of mena fragments of fibrocartilaginous tissue. The specimen is submitted in toto in one cassette. 05/30/201705/30/2017
== END 2017-05-30 18:40 | disposition home or self-care (01) | DRG 29 ==
LOC: JER 14:59 → JERBED 16:01 → J8W 17:50
PROVIDERS: ADMIT Internal Medicine; ATTEND Internal Medicine
PROC: 0SB40ZZ Excision of Lumbosacral Disc, Open Approach (ICD-10-PCS; 2017-05-29)
PROC: 01NB0ZZ Release Lumbar Nerve, Open Approach (ICD-10-PCS; 2017-05-29)
PROC: 0JB70ZZ Excision of Back Subcutaneous Tissue and Fascia, Open Approach (ICD-10-PCS; 2017-05-29)
PROC: 3E10X8Z Irrigation of Skin and Mucous Membranes using Irrigating Substance (ICD-10-PCS; 2017-05-29)
PROC: 00QT0ZZ Repair Spinal Meninges, Open Approach (ICD-10-PCS; principal; 2017-05-29 10:00)
DX: G96.19 Other disorders of meninges, not elsewhere classified (principal); G96.11 Dural tear; M54.9 Dorsalgia, unspecified; M51.27 Other intervertebral disc displacement, lumbosacral region
CPT/HCPCS: 36415; 71020-TC; 72131-TC; 80048; 80053; 85025; 85610; 86850; 86900; 86901; 87070; 87075; 87205; 88304-TC; 93005; 93010; 94760; 99283-25; J1644

== ENCOUNTER 2017-06-12 20:58 | Inpatient (IN) | payer OTHER ==
[2017-06-12] MEDS ORDERED: SODIUM CHLORIDE 0.9% 1000 ML INFUS.BAG IV STA (21:08)
--- NOTE | 2017-06-12 21:08 | PDOC ---
History of Present Illness - General History Source: Patient Exam Limitations: No Limitations - History of Present Illness Initial Comments: 06/12/17 21:21 The patient is a 41 year old male,s/p wound exploration, repair of dural tear, L3-L4, L4-L5, L5-S1 with discectomy. L4-L5 and L3-L4 partial laminectomy on by Dr. Jerry, who presents to the emergency department with fever, chills , surgical site drainage and SOB. Patient states that he has been having a fever of 102-103 for 3 days. He notes that he has been managing with Tylenol and could not keep anything down today. He states that his fever broke yesterday and he saw Dr. Jerry who prescribed him Keflex abx but he was was unable to keep anything down today. He has been rigorous and SOB. He also reports nausea and hiccups but denies any vomiting. He states his last Tylenol dose was last night. He also notes yellow discharge from the surgical site and surrounding redness and swelling. He denies chest pain, headache and dizziness. He denies vomit, diarrhea and constipation. He denies dysuria, frequency, urgency and hematuria. Allergies: NKDA Neurosurgery - Dr. Martínez Jerry PMD - Dr. Hernandez Pain Management: Dr. Rafita Wahl ([phone]) <Hilaria Brantley - Last Filed: 06/12/17 21:30> <Alejandra Acevedo - Last Filed: 06/14/17 08:58> - General Chief Complaint: SIRS, Suspected/Possible Stated Complaint: PCP REF, FEVER,SHORTNESS OF BREATH Time Seen by Provider: 06/12/17 21:07 Past History <Hilaria Brantley - Last Filed: 06/12/17 21:30> - Past Medical History Anemia: No Asthma: No Cancer: No Cardiac Disorders: No CVA: No COPD: No CHF: No Dementia: No Diabetes: No GI Disorders: Yes (BENÍTEZ'S ESOPHAGUS 2010) Disorders: No HTN: No Hypercholesterolemia: No Liver Disease: No Seizures: No Thyroid Disease: No - Surgical History Abdominal Surgery: No Appendectomy: No Cardiac Surgery: No Cholecystectomy: No Lung Surgery: No Neurologic Surgery: No Orthopedic Surgery: No - Suicide/Smoking/Psychosocial Hx Smoking History: Never smoked Have you smoked in the past 12 months: No If you are a former smoker, when did you quit?: 2008 Hx Alcohol Use: No Drug/Substance Use Hx: No Substance Use Type: Alcohol Hx Substance Use Treatment: No <Alejandra Acevedo - Last Filed: 06/14/17 08:58> - Past Medical History Allergies/Adverse Reactions: Allergies Allergy/AdvReac Type Severity Reaction Status Date / Time No Known Drug Allergies Allergy Verified 05/28/17 15:06 Home Medications: Ambulatory Orders Oxycodone HCl [Roxicodone -] 10 mg PO Q6H PRN #30 tablet MDD 3 05/30/17 Review of Systems - Review of Systems Able to Perform ROS?: Yes Comments:: 06/12/17 21:21 GENERAL/CONSTITUTIONAL: +fever, +chills,+ weakness. HEAD, EYES, EARS, NOSE AND THROAT: No change in vision. No ear pain or discharge. No sore throat. GASTROINTESTINAL: +nausea, +hiccups. No vomiting, diarrhea or constipation. GENITOURINARY: No dysuria, frequency, or change in urination. CARDIOVASCULAR: No chest pain. RESPIRATORY: +SOB No cough, wheezing, or hemoptysis. MUSCULOSKELETAL: No joint or muscle pain. No neck pain. SKIN: +lower back incision site redness, swelling and drainage. No rash NEUROLOGIC: No headache, vertigo, loss of consciousness, or change in strength/ sensation. ENDOCRINE: No increased thirst. No abnormal weight change. HEMATOLOGIC/LYMPHATIC: No anemia, easy bleeding, or history of blood clots. ALLERGIC/IMMUNOLOGIC: No hives or skin allergy. <Hilaria Brantley - Last Filed: 06/12/17 21:30> *Physical Exam - Vital Signs Last Vital Signs Temp Pulse Resp BP Pulse Ox 98.1 F 95 H 28 H 130/100 99 06/12/17 21:03 06/12/17 21:03 06/12/17 21:03 06/12/17 21:03 06/12/17 21:03 - Physical Exam Comments: 06/12/17 21:23 GENERAL: +rigorous. Awake, alert, and fully oriented, +in acute distress HEAD: No signs of trauma EYES: PERRLA, EOMI, sclera anicteric, conjunctiva clear ENT: Auricles normal inspection, hearing grossly normal, nares patent, oropharynx clear without exudates. Moist mucosa NECK: Normal ROM, supple, no lymphadenopathy, JVD, or masses LUNGS: Breath sounds equal, clear to auscultation bilaterally. No wheezes, and no crackles HEART: Regular rate and rhythm, normal S1 and S2, no murmurs, rubs or gallops ABDOMEN: Soft, nontender, normoactive bowel sounds. No guarding, no rebound. No masses MUSC: +Ambulates with carefulness secondary to pain EXTREMITIES: Normal range of motion, no edema. No clubbing or cyanosis. No cords, erythema, or tenderness NEUROLOGICAL: Cranial nerves II through XII grossly intact. Normal speech, normal gait SKIN: +Redness, swelling and fluctuance at back with purulent drainage. Warm, Dry, normal turgor, no rashes. <Hilaria Brantley - Last Filed: 06/12/17 21:30> Heart Score/ECG Review - ECG Intrepretation Comment:: 06/12/17 21:35 sinus at 82, nl axis, nl interval, t wave inversions III and avf <Alejandra Acevedo - Last Filed: 06/14/17 08:58> ED Treatment Course - LABORATORY CBC & Chemistry Diagram: 06/12/17 21:13 06/12/17 21:13 <Hilaria Brantley - Last Filed: 06/12/17 21:30> - LABORATORY CBC & Chemistry Diagram: 06/14/17 05:10 06/14/17 05:10 <Aeljandra Acevedo - Last Filed: 06/14/17 08:58> Medical Decision Making - Critical Care Time Total Critical Care Time (minutes): 30 Critical Care Statement: The care of this patient involved high complexity decision making to prevent further life threatening deterioration of the patient 's condition and/or to evaluate & treat vital organ system(s) failure or risk of failure. - Medical Decision Making 06/12/17 21:25 A call was placed to Dr. Jerry at 9:05. Case discussed with Rosalino at 9:10 who accepted the patient, patient is NPO and the surgeon will take him to OR tonight. A call was placed to Dr. Hernandez at 9:15. Dr. Hernandez accepts the patient. Case discussed with overnight ICU WATCH DIAL STONER Shell at 9:17 who is aware of the case and possible bed is pending in ICU. <Hilaria Brantley - Last Filed: 06/12/17 21:30> - Critical Care Time Total Critical Care Time (minutes): 30 Critical Care Statement: The care of this patient involved high complexity decision making to prevent further life threatening deterioration of the patient 's condition and/or to evaluate & treat vital organ system(s) failure or risk of failure. - Medical Decision Making 06/12/17 21:36 a/p: 41yo male with rigors and fevers at home, 11 days post op from back sx -concern for bacteremia and sepsis from back infection at surgical site -discussed with dr. jerry who will be in to see the patient, plan for wash out in OR -will start broad spectrum abx -discussed with Dr. Hernandez who will be in to admit the patient -labs -cultures -wound cultures obtained 06/14/17 08:57 I, Dr. Alejandra Acevedo DO, attest that this document has been prepared under my direction and personally reviewed by me in its entirety. I further attest, that it accurately reflects all work, treatment, procedures and medical decision -making performed by me. <Alejandra Acevedo - Last Filed: 06/14/17 08:58> *DC/Admit/Observation/Transfer - Attestations Scribe Attestion: 06/12/17 21:27 Documentation prepared by FLOR Price, acting as electromedical service engineer for Alejandra Acevedo DO. <Hilaria Brantley - Last Filed: 06/12/17 21:30> - Discharge Dispostion Admit: Yes - Attestations Physician Attestion: 06/12/17 21:19 I, Dr. Alejandra Acevedo DO, attest that this document has been prepared under my direction and personally reviewed by me in its entirety. I further attest, that it accurately reflects all work, treatment, procedures and medical decision -making performed by me. <Alejandra Acevedo - Last Filed: 06/14/17 08:58> Diagnosis at time of Disposition: Surgical site infection, Sepsis - Discharge Dispostion Condition at time of disposition: Critical
[2017-06-12] MEDS ORDERED: ACETAMINOPHEN 1000 MG/100 ML VIAL (NON FORMULARY) IVPB ONE (21:10)
[2017-06-12] MEDS ORDERED: morphine CARPU-JECT 4 MG/1 ML DISP.SYRIN IVPUSH ONE (21:10)
[2017-06-12] MEDS ORDERED: VANCOMYCIN 1 GRAM (PRE-DOCKED) 1,000 MG/250 ML BAG IVPB ONE (21:12)
[2017-06-12] MEDS ORDERED: PIPERACILLIN/TAZOB 4.5 GM/100 ML PRE-DOCKED IVPB ONE (21:12)
[2017-06-12] MEDS ORDERED: ONDANSETRON 4 MG/2 ML VIAL IVPUSH ONE (21:17)
[2017-06-12] MEDS ORDERED: PANTOPRAZOLE SODIUM 40 MG in SODIUM CHLORIDE 100 ML IVPB ONE (21:17)
[2017-06-12] MEDS ORDERED: ACETAMINOPHEN INJECTION 100 ML IVPB ONE (21:28)
[2017-06-12] MEDS ORDERED: PIPERACILLIN/TAZOB 4.5 GM 100 ML IVPB ONE (21:28)
[2017-06-12] MEDS ORDERED: morphine CARPU-JECT 4 MG/1 ML DISP.SYRIN ONE (21:28)
[2017-06-12 21:31] LABS: BASOPHIL 0.5 % (0-2.0); EOSINOPHIL 0.7 % (0-4.5); MCH 29.7 pg (25.7-33.7); MCHC 33.1 g/dl (32.0-35.9); MEAN CELL VOLUME 89.6 fl (80-96); MEAN PLT VOLUME 7.7 fl (7.5-11.1); NEUTROPHILS 76.5 % (42.8-82.8); PLATELET COUNT 315 K/MM3 (134-434); RDW 13.8 % (11.9-15.9); WHITE BLOOD COUNT 15.9 K/mm3 (4.0-10.0)
[2017-06-12 21:33] VITALS: BMI 30.7
[2017-06-12 21:38] LABS: INR 1.4 (0.82-1.09); PROTHROMBIN TIME (PATIENT) 15.5 SEC (9.98-11.88)
[2017-06-12 21:41] LABS: ACTIVATED PTT 31.1 SECONDS (26.9-34.4)
[2017-06-12] MEDS ORDERED: PANTOPRAZOLE SODIUM 100 ML IVPB ONE (21:42)
[2017-06-12] MEDS ORDERED: chlorproMAZINE HCL 25 MG/1 ML AMP IM ONE (21:59)
--- NOTE | 2017-06-12 22:14 | PN ---
Progress Note (short form) - Note Progress Note: Butch Kaye is a 41 year old [place]er male who has a history of Lumbar decompression performed [address] Deejay Escamilla. The patient had an epidural injection one week later for radicular pains. The patient manifested symptoms of a CSF leak and pseudomeningocele and presented to the [facility] ER. His wound was noted to be warm. The patient had severe radicular pain and it was decided that he would benefit from wound revision and repair of the pseudomeningocele with additional discectomy at L34, L45 and L5S1. This was done and at surgery, Stat Gram's stain was negative and the cultures were ultimately negative although there was a clinical suspicion of infection. The patient was getting in several days and this was expressed to be an exceptionally high priority for him and we developed a plan of care which would not utilize a drain and allow him to attend his wedding with the understanding that additional surgery, possibly a multilevel fusion, would be likely required in the near future. The patient was able to attend his wedding and danced although today he reports that he had chills and was sweating profusely. He presented to my office for skin clip removal yesterday and his wound was somewhat warm and full and he developed headaches. I started him on Keflex and advised him that we needed to follow his condition carefully since he is at risk for CSF leak, meningitis and wound infection. The patient contacted our office today with a report of copious clear fluid draining as well as purulent material. He was advised to come to the ER and is currently febrile to 101 and has a WBC of 15.9 I had a long discussion with the patient and describing the elevated risk of infection in patients with CSF leakage as well as those with epidural steroid injections and steroid powders placed at surgery. I explained that although these preparations may be beneficial in reducing inflamation and pain, they come with a trade off cost of elevated risk of infection/poor wound healing. I discussed the fact that he may still require a fusion, however, in the setting of acute infection, it would not be advisable. I feel that the acute problems are CSF leakage and infection and these would be best treated with wound washout and repair of the pseudomeningocele. I explained the risks, benefits and alternatives in great detail and they verbalize an understanding. The risks included, but were not limited to: , coma, paralysis, bleeding, infection, CSF leak possibly requiring spinal drainage or additional surgery and failure to repair the leak/clear the infection. All questions were answered. Informed consent was obtained. We will consult Dr. Mayorga for Infectious Diseases guidance of antibiotics with CSF coverage.
[2017-06-12] MEDS ORDERED: GENTAMICIN SO4 80 MG/2 ML VIAL ONE (23:10)
[2017-06-12] MEDS ORDERED: PROPOFOL 20 ML ONE ×2 (23:51)
[2017-06-12] MEDS ORDERED: ROCURONIUM BROMIDE 50 MG/5 ML VIAL ONE (23:51)
[2017-06-12] MEDS ORDERED: SUCCINYLCHOLINE CHLORIDE 200 MG/10 ML VIAL ONE (23:51)
[2017-06-13] MEDS ORDERED: VANCOMYCIN 1,000 MG VIAL (RESTRICTED TO ID ONLY) IVPB ONE (00:07)
[2017-06-13] MEDS ORDERED: VANCOMYCIN 1,000 MG VIAL (RESTRICTED TO ID ONLY) ONE ×2 (00:09→00:37)
[2017-06-13] MEDS ORDERED: KETOROLAC TROMETHAMINE 30 MG/1 ML VIAL ONE (00:28)
[2017-06-13] MEDS ORDERED: ONDANSETRON 4 MG/2 ML VIAL ONE (00:28)
[2017-06-13] MEDS ORDERED: DEXAMETHASONE SOD PHOSPHATE 4 MG/1 ML VIAL ONE (00:28)
[2017-06-13] MEDS ORDERED: DESFLURANE GAS 240 ML BOTTLE IH ONE (01:05)
[2017-06-13] MEDS ORDERED: NEOSTIGMINE METHYLSULFATE 0.5 MG/ML - 10 ML MDV ONE (01:22)
[2017-06-13] MEDS ORDERED: GLYCOPYRROLATE 0.2 MG/1 ML VIAL ONE ×2 (01:23)
--- NOTE | 2017-06-13 01:50 | OP ---
Operative Note - Note: Operative Date: 06/13/17 Pre-Operative Diagnosis: Post-op wound infection, and pseudomenigocele Operation: Wound exploration, power irrigation with antibiotics Findings: Oswaldo pus Post-Operative Diagnosis: Same as Pre-op Surgeon: Martínez Jerry Raw Stock Machine Loader: Maximiliano Hernandez Anesthesiologist/FLAKE CUTTER OPERATOR: Geoffrey Dueñas Anesthesia: General Specimens Removed: Wound culture Estimated Blood Loss (mls): 50 Drains & Tubes with Location: SILVER x2 Fluid Volume Replaced (mls): 1,000 Operative Report Dictated: Yes
[2017-06-13] MEDS ORDERED: PROMETHAZINE HCL 25 MG/1 ML VIAL IVPUSH PRN ×2 (01:51→02:00)
[2017-06-13] MEDS ORDERED: ONDANSETRON 4 MG/2 ML VIAL IVPUSH PRN ×2 (01:51→02:00)
[2017-06-13] MEDS ORDERED: oxyCODONE HCL 5 MG TABLET PO PRN (01:51)
--- NOTE | 2017-06-13 01:55 | SURG ---
Surgery Steel Inspector Note Steel Inspector: Maximiliano Hernandez PA-C Date of Service: 06/13/17 Diagnosis: Post-op wound infection, pseudomeningocele Procedure: Lumbar wound exploration, power irrigation (3L) with antibiotics I was present for the entirety of the operative procedure. For further detail, please refer to operative report. Visit type - Case Type Case Type: ED Admission - Emergency Emergency Visit: Yes Care time: The patient presented to the Emergency Department on the above date and was hospitalized for further evaluation of their emergent condition. - New patient This patient is new to me today: Yes Date on this admission: 06/13/17
[2017-06-13] MEDS ORDERED: VANCOMYCIN 1,000 MG in DEXTROSE 5%-WATER - 250 ML IVPB ONE (01:57)
[2017-06-13] MEDS ORDERED: chlorproMAZINE HCL 25 MG/1 ML AMP IM ONE (02:00)
[2017-06-13] MEDS ORDERED: ONDANSETRON 4 MG/2 ML VIAL IVPUSH ONE (02:00)
[2017-06-13] MEDS ORDERED: VANCOMYCIN 1 GRAM (PRE-DOCKED) 1,000 MG/250 ML BAG IVPB ONE (02:00)
[2017-06-13] MEDS ORDERED: ACETAMINOPHEN INJECTION 100 ML IVPB ONE (02:03)
[2017-06-13] MEDS: HYDROmorphone HCL CARPU-JECT 2 MG/1 ML DISP.SYRIN ONE ×2 (02:15→02:35)
[2017-06-13] MEDS: ACETAMINOPHEN 1000 MG/100 ML VIAL (NON FORMULARY) IVPB PRN ×2 (02:26→09:19)
[2017-06-13] MEDS ORDERED: diazePAM CARPU-JECT 10 MG/2 ML DISP.SYRIN ONE (02:31)
[2017-06-13] MEDS: diazePAM CARPU-JECT 10 MG/2 ML DISP.SYRIN IVPUSH ONE ×2 (02:45→03:33)
[2017-06-13] MEDS: oxyCODONE HCL 5 MG TABLET PO PRN ×2 (03:32→23:53)
[2017-06-13] MEDS ORDERED: HYDROmorphone HCL CARPU-JECT 1 MG/1 ML DISP.SYRIN IVPUSH PRN (03:47)
[2017-06-13 04:09] LABS: MCH 29.9 pg (25.7-33.7); MCHC 33.4 g/dl (32.0-35.9); MEAN CELL VOLUME 89.4 fl (80-96); MEAN PLT VOLUME 7.6 fl (7.5-11.1); PLATELET COUNT 246 K/MM3 (134-434); RDW 13.6 % (11.9-15.9); WHITE BLOOD COUNT 13.7 K/mm3 (4.0-10.0)
[2017-06-13 04:25] LABS: ANION GAP 9 (8-16); CALCIUM 8.1 mg/dL (8.5-10.1); CO2 24 mmol/L (21-32); CREATININE 0.8 mg/dL (0.7-1.3); GLUCOSE,RANDOM 117 mg/dL (74-106)
[2017-06-13] MEDS ORDERED: morphine CARPU-JECT 4 MG/1 ML DISP.SYRIN IVPUSH ONE (04:58)
--- NOTE | 2017-06-13 05:21 | CONSULT ---
Consult Consult Specialty:: Pulmonary Critical Care Reason for Consultation:: post op for wound exploration - History of Present Illness Chief Complaint: Fever History of Present Illness: Patient is a 41 yo male who had L4-L5 and L3-L4 partial laminectomy on 05/[address] Jones who presented to ED yesterday with c/o fevers and SOB x 3 days. Also reported yellow discharge from the surgical site and surrounding redness and swelling. Presented to ED where he was rigorous, vitals notable for low grade fevers. Labs notable for WBC 15.9--> 13.7, lactate 3.4-->1. He was given Zosyn and Vancomycin and taken to OR for wound exploration and debridement as well as repair of pseudomeningocele. He is now transferred to ICU for post op management. Current Medications Acetaminophen (Ofirmev Injection -) 1,000 mg IVPB Q6H PRN PRN Reason: FEVER OR PAIN Stop: 06/13/17 19:58 Last Admin: 06/13/17 02:26 Dose: 1,000 mg Hydromorphone HCl (Dilaudid Injection -) 1 mg IVPUSH Q4H PRN PRN Reason: PAIN Last Admin: 06/13/17 05:23 Dose: 1 mg Ondansetron HCl (Zofran Injection) 4 mg IVPUSH Q6H PRN PRN Reason: NAUSEA AND/OR VOMITING Stop: 06/13/17 07:52 Oxycodone HCl (Roxicodone -) 10 mg PO Q4H PRN PRN Reason: SEVERE PAIN Stop: 06/14/17 01:50 Last Admin: 06/13/17 03:32 Dose: 10 mg Promethazine HCl (Phenergan Injection -) 12.5 mg IVPUSH Q6H PRN PRN Reason: NAUSEA-FOR RESCUE AFTER 15 MIN Stop: 06/13/17 07:52 - Past Medical History Musculoskeletal: Yes: Chronic low back pain - Alcohol/Substance Use Hx Alcohol Use: No - Smoking History Smoking history: Never smoked Have you smoked in the past 12 months: No If you are a former smoker, when did you quit?: 2007 Home Medications - Allergies Allergies/Adverse Reactions: Allergies Allergy/AdvReac Type Severity Reaction Status Date / Time No Known Drug Allergies Allergy Verified 05/28/17 15:06 - Home Medications Home Medications: Ambulatory Orders Oxycodone HCl [Roxicodone -] 10 mg PO Q6H PRN #30 tablet MDD 3 05/30/17 Physical Exam Vital Signs: Vital Signs Temperature 99.4 F 06/13/17 04:40 Pulse Rate 76 06/13/17 04:40 Respiratory Rate 22 06/13/17 04:40 Blood Pressure 142/81 06/13/17 04:40 O2 Sat by Pulse Oximetry (%) 99 06/13/17 04:21 Eyes: Yes: WNL Cardiovascular: Yes: Regular Rate and Rhythm Respiratory: Yes: CTA Bilaterally Gastrointestinal: Yes: Hyperactive Bowel Sounds. 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 Jones who presented to ED yesterday with c/o fevers x 3 days likely in the setting of infected surgical wound, now s/p wound exploration and debridement as well as repair of pseudomeningocele. Transferred to ICU for post op monitoring PLAN: -surgery following -ID consult to guide abx -has received zosyn/vanco for broad coverage -cultures sent -monitor SILVER drains output -pain management with dilaudid prn -supplemental O2 as needed -DVT ppx Ariane Franco ACNP Critical Care time: 35 min
[2017-06-13] MEDS: HYDROmorphone HCL CARPU-JECT 1 MG/1 ML DISP.SYRIN IVPUSH PRN ×3 (05:23→22:25)
--- NOTE | 2017-06-13 07:46 | PN ---
Physical Exam: 24H Events: yesterday - surgical wound washout/irrigation with antibiotics and repair of pseudomeningocele, started Vanc/Zosyn O/N: lactate downtrending, afebrile SUBJECTIVE: Patient seen and examined in ICU. Back and LE pain well controlled. No fever, chills, SOB, or chest pain. OBJECTIVE: Vital Signs Period Temp Pulse Resp BP Sys/Silva Pulse Ox Last 24 Hr 98.5 F-99.4 F 71-88 16-24 132-170/81-97 97-99 Intake & Output 06/10/17 06/11/17 06/12/17 06/13/17 23:59 23:59 23:59 23:59 Intake Total 1600 Output Total 90 0 Balance 1510 0 Weight 100 kg 100 kg General: lying bed, nad Heart: rrr, normal S1/S2, no murmurs, rubs or gallops Lungs: CTAB, no wheezes, Abd: soft, ntnd Extr: wwp, no LE edema Neuro: 2x SILVER drains with serosanginous output, no focal deficits, decreased touch sensation in L leg 06/13/17 06/13/17 06/13/17 03:55 03:55 03:55 WBC 13.7 H RBC 4.57 Hgb 13.7 D Hct 40.9 D MCV 89.4 MCH 29.9 MCHC 33.4 RDW 13.6 Plt Count 246 D MPV 7.6 Sodium 140 Potassium 4.3 Chloride 107 Carbon Dioxide 24 Anion Gap 9 BUN 10 D Creatinine 0.8 Random Glucose 117 H Lactic Acid 1.0 Calcium 8.1 L Active Medications Acetaminophen (Ofirmev Injection -) 1,000 mg IVPB Q6H PRN PRN Reason: FEVER OR PAIN Stop: 06/13/17 19:58 Last Admin: 06/13/17 09:19 Dose: 1,000 mg Chlorpromazine HCl (Thorazine Injection -) 25 mg IM Q6H PRN PRN Reason: NAUSEA AND/OR VOMITING Heparin Sodium (Porcine) (Heparin -) 5,000 unit SQ BID LEENA Last Admin: 06/13/17 09:19 Dose: 5,000 unit Hydromorphone HCl (Dilaudid Injection -) 1 mg IVPUSH Q4H PRN PRN Reason: PAIN Last Admin: 06/13/17 11:33 Dose: 1 mg Oxycodone HCl (Roxicodone -) 10 mg PO Q4H PRN PRN Reason: SEVERE PAIN Stop: 06/14/17 01:50 Last Admin: 06/13/17 03:32 Dose: 10 mg Pantoprazole Sodium (Protonix -) 40 mg PO DAILY REPLACED BY [facility] ASSESSMENT/PLAN: 41yo M s/p lumbar decompression 6 weeks ago requiring partial lumbar laminectomy (L3-4 and 4-5) revision on 05/28 c/b CSF leak and infection who is POD1 from surgical washout/abx of wound and repair of pseudomeningocele. #spinal wound debridement/washout -ID consulted -Started Vanc and Zosyn -f/u cultures -monitor SILVER output -dilaudid and roxicodone PRN for pain -supplemental O2 as needed #FEN -IVF - hold -lytes wnl -Regular diet #PPX -DVT -Heparin 5000U sq BID -GI - on home protonix 40mg PO daily #Dispo: stable for floors, pending neurosurgery approval FULL Code d/w Dr. Harshad Moreno MD PGY-1 Visit type - Emergency Visit Emergency Visit: No - New Patient This patient is new to me today: Yes Date on this admission: 06/13/17 - Critical Care Critical Care patient: Yes Total Critical Care Time (in minutes): 35 Critical Care Statement: The care of this patient involved high complexity decision making to prevent further life threatening deterioration of the patient 's condition and/or to evaluate & treat vital organ system(s) failure or risk of failure.
[2017-06-13] MEDS: HEPARIN NA (PORCINE) 5,000 UNITS/ML 1ML VIAL SQ SCH ×2 (09:19→22:20)
[2017-06-13] MEDS ORDERED: PANTOPRAZOLE 20 MG TABLET (FP) PO SCH (10:00)
--- NOTE | 2017-06-13 10:00 | PN ---
Progress Note (short form) - Note Progress Note: 41 male POD #1 lumbar Wound exploration, power irrigation with antibiotics late last night. Patient seen and examined at bedside. Patient states his back pain and LE pain is improved but he still has mild pain and parestehsias in left LE. also states that he has a history of Barretts esophagus and he feels as thought the PO pain meds have been causing it to flare lately. He wants to eat and has been burping a lot. He denies any new symptoms, c/p, SOB, subjective fever or chills overnight. He has not urinated yet but denies pain and distention. Denies any N/V/D. Vital Signs Period Temp Pulse Resp BP Sys/Silva Pulse Ox Last 24 Hr 98.1 F-99.4 F 71-95 16-28 123-170/76-100 97-100 CBC, BMP 06/13/17 03:55 06/13/17 03:55 Gram stain and cultures pending SILVER drains x2 = 15ml serosanginuous d/c and darker d/c on right side consistent with surgicell use in wound PE: A&Ox3 NAD Unlabored resp on RA incision site c/d/i with drains x2 surrounding skin intact, no evidence of tracking erythema, edema or ecchymosis B/L LE sensation to light touch intact throughout, compartments soft, supple and non-tender to palpation + 2 pedal and PT pulses + dorsi and plantar flexion intact b/l with 2/5 weakness on L dorsiflexion. Pt able to activate left HL but no strength with resistance testing-These findings documented as pt baseline pre-op. B/l scds in place Imp: s/p lumbar wound exploration and washout doing well with no new symptoms. Plan: 1) NPO after midnight 2) GI/Kiran to preform EGD in AM 06/14 3) continue DVT prophylaxis with heparin and scds 4) OOB with PT-ambulate with assistance 5) ID consult appreciated. 6) Nutrition consult-30lb weight loss 2/2 Atkinson's, concerned about poor nutritional status and wound complications
--- NOTE | 2017-06-13 10:08 | CONSULT ---
Consult Consult Specialty:: GI Referred by:: ICU team Reason for Consultation:: GERD, hiccups - History of Present Illness History of Present Illness: Chart reviewed. Admitted for post op wound infection. Reports diagnosis of Atkinson's esophagus 8 y ago. No formal follow up since then. Takes Tums daily and PPI PRN for persistent acid reflux symptoms. Also, reports recurrent hiccups for many years. When present, hiccups interfere with PO intake and result in vomiting. No alleviating, or aggravating factors/triggers noted. - History Source History Provided By: Patient Limitations to Obtaining History: No Limitations - Past Medical History Musculoskeletal: Yes: Chronic low back pain - Past Surgical History Additional Surgical History: see HP - Alcohol/Substance Use Hx Alcohol Use: No - Smoking History Smoking history: Never smoked Have you smoked in the past 12 months: No If you are a former smoker, when did you quit?: 2007 Home Medications - Allergies Allergies/Adverse Reactions: Allergies Allergy/AdvReac Type Severity Reaction Status Date / Time No Known Drug Allergies Allergy Verified 05/28/17 15:06 - Home Medications Home Medications: Ambulatory Orders Oxycodone HCl [Roxicodone -] 10 mg PO Q6H PRN #30 tablet MDD 3 05/30/17 Family Disease History - Family Disease History Family History: Unremarkable Review of Systems Findings/Remarks: Please see HP - Review of Systems Constitutional: denies: Chills, Fever, Loss of Appetite, Night Sweats, Unintentional Wgt. Loss Gastrointestinal: reports: Vomiting. denies: Abdominal Pain, Bloating, Constipation, Diarrhea, Dysphagia, Indigestion, Melena, Nausea, Rectal Bleeding Integumentary: reports: Other (extensive tattoos) Neurological: reports: No Symptoms Endocrine: reports: No Symptoms Hematology/Lymphatic: denies: Excessive Bleeding, Swollen Glands Psychiatric: reports: No Symptoms Physical Exam Vital Signs: Vital Signs Temperature 99.4 F 06/13/17 04:40 Pulse Rate 83 06/13/17 08:00 Respiratory Rate 22 06/13/17 08:00 Blood Pressure 123/76 06/13/17 08:00 O2 Sat by Pulse Oximetry (%) 99 06/13/17 04:21 Constitutional: Yes: Well Nourished, No Distress, Calm Eyes: Yes: Conjunctiva Clear HENT: Yes: Atraumatic, Normocephalic Neck: Yes: Supple Cardiovascular: Yes: Regular Rate and Rhythm Respiratory: Yes: Regular, CTA Bilaterally Gastrointestinal: Yes: Normal Bowel Sounds, Soft. No: Abdomen, Obese, Ascites, Distention, Hematemesis, Hepatomegaly, Melena, Palpable Mass, Pulsatile Mass, Splenomegaly, Tenderness, Tenderness, Epigastrium, Tenderness, Rebound, Vomiting Musculoskeletal: No: Joint Stiffness, Joint Swelling Extremities: Yes: WNL Edema: No Integumentary: Yes: Other (tattoos) Neurological: Yes: Alert, Oriented Labs: Current Medications Generic Name Dose Route Start Last Admin Trade Name Freq PRN Reason Stop Dose Admin Acetaminophen 1,000 mg 06/13/17 01:57 06/13/17 09:19 Ofirmev Injection - IVPB 06/13/17 19:58 1,000 mg Q6H PRN Administration FEVER OR PAIN Heparin Sodium (Porcine) 5,000 unit 06/13/17 10:00 06/13/17 09:19 Heparin - SQ 5,000 unit BID LEENA Administration Hydromorphone HCl 1 mg 06/13/17 05:08 06/13/17 05:23 Dilaudid Injection - IVPUSH 1 mg Q4H PRN Administration PAIN Oxycodone HCl 10 mg 06/13/17 02:00 06/13/17 03:32 Roxicodone - PO 06/14/17 01:50 10 mg Q4H PRN Administration SEVERE PAIN Pantoprazole Sodium 20 mg 06/13/17 10:00 06/13/17 09:19 Protonix - PO 20 mg BID LEENA Administration Home Medications Medication Instructions Recorded Oxycodone HCl [Roxicodone -] 10 mg PO Q6H PRN #30 tablet MDD 3 05/30/17 Vital Signs (72 hours) 06/12/17 06/12/17 06/13/17 21:03 21:41 01:49 Temperature 98.1 F 98.3 F Pulse Rate 95 H 74 Respiratory 28 H 18 Rate Blood Pressure 130/100 126/83 138/96 O2 Sat by Pulse 100 98 Oximetry (%) 06/13/17 06/13/17 06/13/17 01:56 02:00 02:15 Temperature 99.2 F Pulse Rate 86 88 86 Respiratory 20 24 16 Rate Blood Pressure 145/84 170/96 147/97 O2 Sat by Pulse 99 99 Oximetry (%) 06/13/17 06/13/17 06/13/17 02:30 02:45 03:00 Temperature Pulse Rate 85 82 82 Respiratory 16 22 20 Rate Blood Pressure 132/82 155/93 151/88 O2 Sat by Pulse 98 97 97 Oximetry (%) 06/13/17 06/13/17 06/13/17 03:15 04:08 04:21 Temperature 98.5 F 99.4 F Pulse Rate 82 71 Respiratory 16 22 22 Rate Blood Pressure 146/90 145/84 O2 Sat by Pulse 99 99 Oximetry (%) 06/13/17 06/13/17 04:40 08:00 Temperature 99.4 F Pulse Rate 76 83 Respiratory 22 22 Rate Blood Pressure 142/81 123/76 O2 Sat by Pulse Oximetry (%) Laboratory Tests 06/12/17 06/12/17 06/12/17 21:13 21:13 21:13 WBC 15.9 H RBC 5.39 Hgb 16.0 D Hct 48.3 MCV 89.6 MCH 29.7 MCHC 33.1 RDW 13.8 Plt Count 315 MPV 7.7 Neutrophils % 76.5 Lymphocytes % 13.3 D Monocytes % 9.0 Eosinophils % 0.7 D Basophils % 0.5 D PT with INR 15.50 H INR 1.40 H PTT (Actin FS) 31.1 Sodium Cancelled Potassium Cancelled Chloride Cancelled Carbon Dioxide Cancelled Anion Gap Cancelled BUN Cancelled Creatinine Cancelled Creat Clearance w eGFR Cancelled Random Glucose Cancelled Lactic Acid Calcium Cancelled Total Bilirubin Cancelled AST Cancelled ALT Cancelled Alkaline Phosphatase Cancelled Total Protein Cancelled Albumin Cancelled Blood Type Antibody Screen 06/12/17 06/12/17 06/13/17 21:17 22:00 03:55 WBC RBC Hgb Hct MCV MCH MCHC RDW Plt Count MPV Neutrophils % Lymphocytes % Monocytes % Eosinophils % Basophils % PT with INR INR PTT (Actin FS) Sodium Potassium Chloride Carbon Dioxide Anion Gap BUN Creatinine Creat Clearance w eGFR Random Glucose Lactic Acid 3.4 H* 1.0 Calcium Total Bilirubin AST ALT Alkaline Phosphatase Total Protein Albumin Blood Type B POSITIVE Antibody Screen Negative 06/13/17 06/13/17 03:55 03:55 WBC 13.7 H RBC 4.57 Hgb 13.7 D Hct 40.9 D MCV 89.4 MCH 29.9 MCHC 33.4 RDW 13.6 Plt Count 246 D MPV 7.6 Neutrophils % Lymphocytes % Monocytes % Eosinophils % Basophils % PT with INR INR PTT (Actin FS) Sodium 140 Potassium 4.3 Chloride 107 Carbon Dioxide 24 Anion Gap 9 BUN 10 D Creatinine 0.8 Creat Clearance w eGFR Random Glucose 117 H Lactic Acid Calcium 8.1 L Total Bilirubin AST ALT Alkaline Phosphatase Total Protein Albumin Blood Type Antibody Screen Assessment/Plan History of Atkinson's No formal follow up for 8 years chronic GERD-like symptoms Hiccups Will need surveillance EGD GERD lifestyle, diet Start Pantoprazole 40 mg po qam Start Chlorpromazine 25 mg po qid Visit type - Emergency Visit Emergency Visit: No - New Patient This patient is new to me today: Yes Date on this admission: 06/13/17 - Critical Care Critical Care patient: No
[2017-06-13] MEDS ORDERED: PIPERACILLIN/TAZOB 4.5 GM/100 ML PRE-DOCKED IVPB ONE (12:30)
--- NOTE | 2017-06-13 12:53 | EKG ---
Test Reason : Blood Pressure : / mmHG Vent. Rate : 082 BPM Atrial Rate : 082 BPM P-R Int : 100 ms QRS Dur : 096 ms QT Int : 376 ms P-R-T Axes : 031 004 -34 degrees QTc Int : 439 ms SINUS RHYTHM WITH SHORT LA MINIMAL VOLTAGE CRITERIA FOR LVH, MAY BE NORMAL VARIANT POSSIBLE INFERIOR INFARCT , AGE UNDETERMINED ABNORMAL ECG WHEN COMPARED WITH ECG OF 28-MAY-2017 16:29, LA INTERVAL HAS DECREASED BORDERLINE CRITERIA FOR INFERIOR INFARCT ARE NOW PRESENT Confirmed by KINJAL SHINE, TRANG ([id number]) on 06/13/2017 12:53:10 PM Referred By: Confirmed By:TRANG LAYTON MD
[2017-06-13] MEDS: chlorproMAZINE HCL 25 MG/1 ML AMP IM PRN (13:32)
--- NOTE | 2017-06-13 13:39 | HP ---
CHIEF COMPLAINT:fevers, chills, spinal leakage HISTORY OF PRESENT ILLNESS: 41 yr old man with hx of chronic lower back pain/radicular pain with recent pseudomeningocele repair. Since Sunday he has been having fever and chills noted headache and discharge from his lower back incision. He had a fever of 103f on Sunday, says the fever defervesced on Sunday. He had follow-up with Dr. Jerry on Sunday for staple removal, at that time he started on keflex. Yesterday he presented to the ED due to no improvement of symptoms. Recent Travel: [place] 06/03/2017 PAST MEDICAL HISTORY: chronic lower back pain on oxycodone, armenta's esophagus Social History: Smoking: quit 10 yrs ago, smoked 1ppk/day, started age 11 Alcohol: socially, last drink on 06/03 Drugs: denies Family History: father from cancer, "started in the liver", dx'd at age 58 Allergies No Known Drug Allergies Allergy (Verified 05/28/17 15:06) HOME MEDICATIONS: Started on po keflex by Dr. jerry on Monday 06/11 Home Medications Medication Instructions Recorded Oxycodone HCl [Roxicodone -] 10 mg PO Q6H PRN #30 tablet MDD 3 05/30/17 REVIEW OF SYSTEMS CONSTITUTIONAL: Present: fever, chills, Absent: diaphoresis, generalized weakness, malaise, loss of appetite, weight change HEENT: Present: intermittent blurry vision, uses corrective lens Absent: rhinorrhea, nasal congestion, throat pain, throat swelling, difficulty swallowing, mouth swelling, ear pain, eye pain, CARDIOVASCULAR: Absent: chest pain, syncope, palpitations, irregular heart rate, lightheadedness , peripheral edema RESPIRATORY: Present: shortness of breath Absent: cough, dyspnea with exertion, orthopnea, wheezing, stridor, hemoptysis GASTROINTESTINAL: Present: nausea, vomiting Absent: abdominal pain, abdominal distension, , diarrhea, constipation, melena, hematochezia GENITOURINARY: Present: decreased UOP, as per patient Absent: dysuria, frequency, urgency, hesitancy, hematuria, flank pain, genital pain MUSCULOSKELETAL: Absent: myalgia, arthralgia, joint swelling, back pain, neck pain SKIN: Present: itching, Absent: rash, pallor HEMATOLOGIC/IMMUNOLOGIC: Absent: easy bleeding, easy bruising, lymphadenopathy, frequent infections ENDOCRINE: Absent: unexplained weight gain, unexplained weight loss, heat intolerance, cold intolerance NEUROLOGIC: Present: headache, Absent: focal weakness or paresthesias, dizziness, unsteady gait, seizure, mental status changes, bladder or bowel incontinence PHYSICAL EXAMINATION Vital Signs - 24 hr 06/13/17 06/13/17 06/13/17 02:00 02:15 02:30 Temperature Pulse Rate 88 86 85 Respiratory 24 16 16 Rate Blood Pressure 170/96 147/97 132/82 O2 Sat by Pulse 99 99 98 Oximetry (%) 06/13/17 06/13/17 06/13/17 02:45 03:00 03:15 Temperature 98.5 F Pulse Rate 82 82 82 Respiratory 22 20 16 Rate Blood Pressure 155/93 151/88 146/90 O2 Sat by Pulse 97 97 Oximetry (%) 06/13/17 06/13/17 06/13/17 04:08 04:21 04:40 Temperature 99.4 F 99.4 F Pulse Rate 71 76 Respiratory 22 22 22 Rate Blood Pressure 145/84 142/81 O2 Sat by Pulse 99 99 Oximetry (%) 06/13/17 06/13/17 06/13/17 08:00 09:00 10:00 Temperature 97.7 F Pulse Rate 83 81 Respiratory 22 17 17 Rate Blood Pressure 123/76 143/98 O2 Sat by Pulse 99 Oximetry (%) 06/13/17 12:00 Temperature 98 F Pulse Rate 85 Respiratory 18 Rate Blood Pressure 147/81 O2 Sat by Pulse Oximetry (%) GENERAL: Awake, alert, and fully oriented, in no acute distress. HEAD: Normal with no signs of trauma. EYES: Pupils equal, round and reactive to light, extraocular movements intact, sclera anicteric, conjunctiva clear. No lid lag. EARS, NOSE, THROAT: Ears normal, nares patent, oropharynx clear without exudates. Moist mucous membranes. NECK: Normal range of motion, supple without lymphadenopathy, JVD, or masses. LUNGS: Breath sounds equal, clear to auscultation bilaterally. No wheezes, and no crackles. No accessory muscle use. HEART: Regular rate and rhythm, normal S1 and S2 without murmur, rub or gallop. ABDOMEN: Soft, nontender, not distended, normoactive bowel sounds, no guarding, no rebound, no masses. MUSCULOSKELETAL: No CVA tenderness. no spinal tenderness. [address] draining sero UPPER EXTREMITIES: 2+ radial pulses, warm, well-perfused. No cyanosis. No clubbing. No peripheral edema. LOWER EXTREMITIES: 2+ DP pulses, warm, well-perfused. No calf tenderness. No peripheral edema. NEUROLOGICAL: Cranial nerves II-XII intact. Normal speech, facial symmetry, 5/ 5 b/l hand upper marker, 5/5 hip extension b/l, 4/5 dorsiflexion on left and 5/5 plantarflexion on left, 5/5 plantar/dorsi on right PSYCHIATRIC: Cooperative. Good eye contact. Appropriate mood and affect. SKIN: Warm, dry, normal turgor, no rashes or lesions noted, normal capillary refill. Laboratory Results - last 24 hr 06/13/17 06/13/17 06/13/17 03:55 03:55 03:55 WBC 13.7 H RBC 4.57 Hgb 13.7 D Hct 40.9 D MCV 89.4 MCH 29.9 MCHC 33.4 RDW 13.6 Plt Count 246 D MPV 7.6 Sodium 140 Potassium 4.3 Chloride 107 Carbon Dioxide 24 Anion Gap 9 BUN 10 D Creatinine 0.8 Random Glucose 117 H Lactic Acid 1.0 Calcium 8.1 L ASSESSMENT/PLAN: 41 yr old man with recent lumbar laminectomy POD #1 for post-op pseudomeningocele. # sepsis secondary to pseudomeningocele - POD #1 - IV abx: zosyn and irasema, Dr. garcia consulted - Dr. Jerry following - pain management as needed, tylenol prn - may need physical therapy eval when able to ambulate #Armenta's esophagus - currently with hiccups - Dr. Mccormack to take him to endo suite tomorrow - NPO and midnight - IVF - thorazine prn #diet: regular #DVT: scd's Visit type - Emergency Visit Emergency Visit: No - New Patient This patient is new to me today: Yes Date on this admission: 06/14/17 - Critical Care Critical Care patient: No
[2017-06-13] MEDS ORDERED: chlorproMAZINE HCL 25 MG TABLET PO SCH (14:00)
[2017-06-13 14:48] LABS: URINE APPEARANCE CLEAR; URINE BILIRUBIN NEGATIVE (NEGATIVE); URINE BLOOD NEGATIVE (NEGATIVE); URINE COLOR AMBER; URINE GLUCOSE (UA) NEGATIVE (NEGATIVE); URINE KETONE TRACE (NEGATIVE); URINE LEUK ESTERASE NEGATIVE (NEGATIVE); URINE NITRITE NEGATIVE (NEGATIVE); URINE UROBILINOGEN 4.0 E.U/dl mg/dL (0.2-1.0)
[2017-06-13 14:57] LABS: URINE PROTEIN 1+ (NEGATIVE)
[2017-06-13 14:59] LABS: URINE MUCUS RARE; URINE RBC 10 /hpf (0-3); URINE WBC <1 /hpf (3-5)
--- NOTE | 2017-06-13 15:27 | HP ---
CHIEF COMPLAINT: Fever, nausea/vomiting/ SOB/back pain and pus drainage from surgical site x 3 days PCP: Patient was seen by DR Hernandez 2 weeks ago but now requests to have the hospitalist see the patient Neurosx- Dr. Head, Dr Nam Pain Mx_Dr Rafita Wahl HISTORY OF PRESENT ILLNESS: Patient is a 41 year old male s/p laminectomy for a pseudomeningocoele, who presented with SOB, Fever, nausea/vomiting/ back pain and pus drainage from surgical site. The back pain was midline, at the site of his surgery, dull constant pain, 10/10 worsened by movement and relieved by staying still. It was non radiating. It was relieved initially by opiates until presentation when he felt it had become intractable and was draining pus. There was associated headache that was generalized. The patient noted a temperature of 103 at home, with chills, and followed up in the clinic with Dr. Nam, where he received Keflex. He presented in the ED for worsening symptoms and was taken into theater to have a washout. ER course was notable for: (1)Temp-101 (2)WBC_15.9 (3) RR-28 4) Lactic acid of 3.4 Following the wound washout, the patient was received into the ICU, and has had his pain managed with both PO and IV, is on protonix and receiving Vanco and zosyn Recent Travel: PAST MEDICAL HISTORY: Atkinson's esophagus PAST SURGICAL HISTORY: Laminectomy and washout for the pseudomeningocele Social History: Smoking: Alcohol: Drugs: Family History: Allergies No Known Drug Allergies Allergy (Verified 05/28/17 15:06) HOME MEDICATIONS: Home Medications Medication Instructions Recorded Oxycodone HCl [Roxicodone -] 10 mg PO Q6H PRN #30 tablet MDD 3 05/30/17 REVIEW OF SYSTEMS CONSTITUTIONAL: Absent: fever, chills, diaphoresis, generalized weakness, malaise, loss of appetite, weight change HEENT: Absent: rhinorrhea, nasal congestion, throat pain, throat swelling, difficulty swallowing, mouth swelling, ear pain, eye pain, visual changes CARDIOVASCULAR: Absent: chest pain, syncope, palpitations, irregular heart rate, lightheadedness , peripheral edema RESPIRATORY: Absent: cough, shortness of breath, dyspnea with exertion, orthopnea, wheezing, stridor, hemoptysis GASTROINTESTINAL: Absent: abdominal pain, abdominal distension, nausea, vomiting, diarrhea, constipation, melena, hematochezia GENITOURINARY: Absent: dysuria, frequency, urgency, hesitancy, hematuria, flank pain, genital pain MUSCULOSKELETAL: Absent: myalgia, arthralgia, joint swelling, back pain, neck pain SKIN: Absent: rash, itching, pallor HEMATOLOGIC/IMMUNOLOGIC: Absent: easy bleeding, easy bruising, lymphadenopathy, frequent infections ENDOCRINE: Absent: unexplained weight gain, unexplained weight loss, heat intolerance, cold intolerance NEUROLOGIC: Absent: headache, focal weakness or paresthesias, dizziness, unsteady gait, seizure, mental status changes, bladder or bowel incontinence PSYCHIATRIC: Absent: anxiety, depression, suicidal or homicidal ideation, hallucinations. PHYSICAL EXAMINATION Vital Signs - 24 hr 06/13/17 06/13/17 06/13/17 02:00 02:15 02:30 Temperature Pulse Rate 88 86 85 Respiratory 24 16 16 Rate Blood Pressure 170/96 147/97 132/82 O2 Sat by Pulse 99 99 98 Oximetry (%) 06/13/17 06/13/17 06/13/17 02:45 03:00 03:15 Temperature 98.5 F Pulse Rate 82 82 82 Respiratory 22 20 16 Rate Blood Pressure 155/93 151/88 146/90 O2 Sat by Pulse 97 97 Oximetry (%) 06/13/17 06/13/17 06/13/17 04:08 04:21 04:40 Temperature 99.4 F 99.4 F Pulse Rate 71 76 Respiratory 22 22 22 Rate Blood Pressure 145/84 142/81 O2 Sat by Pulse 99 99 Oximetry (%) 06/13/17 06/13/17 06/13/17 08:00 09:00 10:00 Temperature 97.7 F Pulse Rate 83 81 Respiratory 22 17 17 Rate Blood Pressure 123/76 143/98 O2 Sat by Pulse 99 Oximetry (%) 06/13/17 06/13/17 12:00 14:00 Temperature 98 F 98.0 F Pulse Rate 85 83 Respiratory 18 21 Rate Blood Pressure 147/81 143/95 O2 Sat by Pulse Oximetry (%) GENERAL: Awake, alert, and fully oriented, in no acute distress. HEAD: Normal with no signs of trauma. EYES: Pupils equal, round and reactive to light, extraocular movements intact, sclera anicteric, conjunctiva clear. No lid lag. EARS, NOSE, THROAT: Ears normal, nares patent, oropharynx clear without exudates. Moist mucous membranes. NECK: Normal range of motion, supple without lymphadenopathy, JVD, or masses. LUNGS: Breath sounds equal, clear to auscultation bilaterally. No wheezes, and no crackles. No accessory muscle use. HEART: Regular rate and rhythm, normal S1 and S2 without murmur, rub or gallop. ABDOMEN: Soft, nontender, not distended, normoactive bowel sounds, no guarding, no rebound, no masses. No hepatomegaly or splenomegaly. MUSCULOSKELETAL: Lower midline back dressing with drain in place, draining sero- sanguinous fluid. Normal range of motion except for chronic limitation of L foot dorsiflexion (present prior to admission). Appropriate tenderness over wound site UPPER EXTREMITIES: 2+ pulses, warm, well-perfused. No cyanosis. No clubbing. No peripheral edema. LOWER EXTREMITIES: 2+ pulses, warm, well-perfused. No calf tenderness. No peripheral edema. Except as documented above for L NEUROLOGICAL: Cranial nerves II-XII intact. No facial droop seen. Normal speech. Gait not observed. PSYCHIATRIC: Cooperative. Good eye contact. Appropriate mood and affect. SKIN: Warm, dry, normal turgor, no rashes or lesions noted, normal capillary refill. Laboratory Results - last 24 hr 06/13/17 06/13/17 06/13/17 03:55 03:55 03:55 WBC 13.7 H RBC 4.57 Hgb 13.7 D Hct 40.9 D MCV 89.4 MCH 29.9 MCHC 33.4 RDW 13.6 Plt Count 246 D MPV 7.6 Sodium 140 Potassium 4.3 Chloride 107 Carbon Dioxide 24 Anion Gap 9 BUN 10 D Creatinine 0.8 Random Glucose 117 H Lactic Acid 1.0 Calcium 8.1 L Urine Color Urine Appearance Urine pH Urine Protein Urine Glucose (UA) Urine Ketones Urine Blood Urine Nitrite Urine Bilirubin Urine Urobilinogen Urine RBC Urine WBC Urine Mucus 06/13/17 11:20 WBC RBC Hgb Hct MCV MCH MCHC RDW Plt Count MPV Sodium Potassium Chloride Carbon Dioxide Anion Gap BUN Creatinine Random Glucose Lactic Acid Calcium Urine Color Naila Urine Appearance Clear Urine pH 6.0 Urine Protein 1+ H Urine Glucose (UA) Negative Urine Ketones Trace H Urine Blood Negative Urine Nitrite Negative Urine Bilirubin Negative Urine Urobilinogen 4.0 e.u/dl Urine RBC 10 Urine WBC <1 Urine Mucus Rare ASSESSMENT/PLAN: A 41 year old male who presented with a history of fever, N/V, back pain and CSF leak s/p laminectomy 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 #Sepsis secondary to pseudomeningocel: History of fever and chills, tachypnea, tachycardia, elevated lactic acid, and pus discharge from laminectomy wound site IVF Vanco-[id number] mg daily IVPB Zosyn- 3.375 g IVPB Wound wash out-done ID consult- Dr Mayorga on board Pain control- hydromorphone and oxycodone Wound culture-pending Urine culture-pending Blood culture-pending #Barretts esophagus: Diagnosed in 2009 Has has more recent flares GI Consult- For EGD tomorrow NPO after midnight IV pantoprazole 40 mg #Prophylaxis DVT: Bilateral SCDs Hold heparin for now- due to active drain in place GI: On pantoprazole #FEN Rosebud oral fluids as tolerated NPO after midnight Monitor electrolytes Visit type - Emergency Visit Emergency Visit: Yes ED Registration Date: 06/13/17 Care time: The patient presented to the Emergency Department on the above date and was hospitalized for further evaluation of their emergent condition. - New Patient This patient is new to me today: Yes Date on this admission: 06/13/17 - Critical Care Critical Care patient: Yes Total Critical Care Time (in minutes): 37 Critical Care Statement: The care of this patient involved high complexity decision making to prevent further life threatening deterioration of the patient 's condition and/or to evaluate & treat vital organ system(s) failure or risk of failure.
[2017-06-13] MEDS ORDERED: SODIUM CHLORIDE 0.45% 1,000 ML IV SCH ×2 (16:45→16:55)
--- NOTE | 2017-06-13 17:18 | PN ---
Progress Note (short form) - Note Progress Note: All Active Problems Acid reflux disease (Acute) Barretts esophagus (Acute) Hiccups (Acute) Sepsis (Acute) Surgical site infection (Acute) Back pain (Acute) Dural tear (Acute) Pseudomeningocele of spinal cord (Acute) Abnormal Lab Results 06/12/17 06/12/17 06/12/17 21:13 21:13 21:17 WBC 15.9 H PT with INR 15.50 H INR 1.40 H Random Glucose Lactic Acid 3.4 H* Calcium Urine Protein Urine Ketones 06/13/17 06/13/17 06/13/17 03:55 03:55 11:20 WBC 13.7 H PT with INR INR Random Glucose 117 H Lactic Acid Calcium 8.1 L Urine Protein 1+ H Urine Ketones Trace H Current Medications Generic Name Dose Route Start Last Admin Trade Name Freq PRN Reason Stop Dose Admin Acetaminophen 1,000 mg 06/13/17 01:57 06/13/17 09:19 Ofirmev Injection - IVPB 06/13/17 19:58 1,000 mg Q6H PRN Administration FEVER OR PAIN Chlorhexidine Gluconate 1 applic 06/13/17 22:00 Hibiclens For Decolonization - TP HS LEENA Chlorpromazine HCl 25 mg 06/13/17 12:53 06/13/17 13:32 Thorazine Injection - IM 25 mg Q6H PRN Administration NAUSEA AND/OR VOMITING Heparin Sodium (Porcine) 5,000 unit 06/13/17 10:00 06/13/17 09:19 Heparin - SQ 5,000 unit BID LEENA Administration Hydromorphone HCl 1 mg 06/13/17 05:08 06/13/17 11:33 Dilaudid Injection - IVPUSH 1 mg Q4H PRN Administration PAIN Sodium Chloride 1,000 mls @ 75 mls/hr 06/13/17 16:55 1/2 Normal Saline IV ASDIR LEENA Mupirocin 1 applic 06/13/17 22:00 Bactroban Ointment (For Decolonization) - NS 06/18/17 21:59 BID LEENA Oxycodone HCl 10 mg 06/13/17 02:00 06/13/17 03:32 Roxicodone - PO 06/14/17 01:50 10 mg Q4H PRN Administration SEVERE PAIN Pantoprazole Sodium 40 mg 06/14/17 10:00 Protonix - PO DAILY LEENA My Active Orders 06/14/17 00:01 NPO after midnight [DT] EGD in AM Visit type - Emergency Visit Emergency Visit: No - New Patient This patient is new to me today: No - Critical Care Critical Care patient: No
--- NOTE | 2017-06-13 17:20 | PN ---
Teaching Attending Note Name of Resident: Nakita Haynes ATTENDING PHYSICIAN STATEMENT I saw and evaluated the patient. I reviewed the resident's note and discussed the case with the resident. I agree with the resident's findings and plan as documented. SUBJECTIVE: Patient is sleeping. IN ICU OBJECTIVE: Vital Signs Temperature 98.0 F 06/13/17 14:00 Pulse Rate 83 06/13/17 14:00 Respiratory Rate 21 06/13/17 14:00 Blood Pressure 143/95 06/13/17 14:00 O2 Sat by Pulse Oximetry (%) 99 06/13/17 09:00 CBCD WBC 13.7 K/mm3 (4.0-10.0) H 06/13/17 03:55 RBC 4.57 M/mm3 (4.00-5.60) 06/13/17 03:55 Hgb 13.7 GM/dL (11.7-16.9) D 06/13/17 03:55 Hct 40.9 % (35.4-49) D 06/13/17 03:55 MCV 89.4 fl (80-96) 06/13/17 03:55 MCHC 33.4 g/dl (32.0-35.9) 06/13/17 03:55 RDW 13.6 % (11.9-15.9) 06/13/17 03:55 Plt Count 246 K/MM3 (134-434) D 06/13/17 03:55 MPV 7.6 fl (7.5-11.1) 06/13/17 03:55 CMP Sodium 140 mmol/L (136-145) 06/13/17 03:55 Potassium 4.3 mmol/L (3.5-5.1) 06/13/17 03:55 Chloride 107 mmol/L (98-107) 06/13/17 03:55 Carbon Dioxide 24 mmol/L (21-32) 06/13/17 03:55 Anion Gap 9 (8-16) 06/13/17 03:55 BUN 10 mg/dL (7-18) D 06/13/17 03:55 Creatinine 0.8 mg/dL (0.7-1.3) 06/13/17 03:55 Creat Clearance w eGFR Cancelled 06/12/17 21:13 Random Glucose 117 mg/dL (74-106) H 06/13/17 03:55 Calcium 8.1 mg/dL (8.5-10.1) L 06/13/17 03:55 Total Bilirubin Cancelled 06/12/17 21:13 AST Cancelled 06/12/17 21:13 ALT Cancelled 06/12/17 21:13 Alkaline Phosphatase Cancelled 06/12/17 21:13 Total Protein Cancelled 06/12/17 21:13 Albumin Cancelled 06/12/17 21:13 Current Medications Generic Name Dose Route Start Last Admin Trade Name Dinesh PRN Reason Stop Dose Admin Acetaminophen 1,000 mg 06/13/17 01:57 06/13/17 09:19 Ofirmev Injection - IVPB 06/13/17 19:58 1,000 mg Q6H PRN Administration FEVER OR PAIN Chlorhexidine Gluconate 1 applic 06/13/17 22:00 Hibiclens For Decolonization - TP HS LEENA Chlorpromazine HCl 25 mg 06/13/17 12:53 06/13/17 13:32 Thorazine Injection - IM 25 mg Q6H PRN Administration NAUSEA AND/OR VOMITING Heparin Sodium (Porcine) 5,000 unit 06/13/17 10:00 06/13/17 09:19 Heparin - SQ 5,000 unit BID LEENA Administration Hydromorphone HCl 1 mg 06/13/17 05:08 06/13/17 11:33 Dilaudid Injection - IVPUSH 1 mg Q4H PRN Administration PAIN Sodium Chloride 1,000 mls @ 75 mls/hr 06/13/17 16:55 1/2 Normal Saline IV ASDIR LEENA Mupirocin 1 applic 06/13/17 22:00 Bactroban Ointment (For Decolonization) - NS 06/18/17 21:59 BID LEENA Oxycodone HCl 10 mg 06/13/17 02:00 06/13/17 03:32 Roxicodone - PO 06/14/17 01:50 10 mg Q4H PRN Administration SEVERE PAIN Pantoprazole Sodium 40 mg 06/14/17 10:00 Protonix - PO DAILY [facility] Home Medications Medication Instructions Recorded Oxycodone HCl [Roxicodone -] 10 mg PO Q6H PRN #30 tablet MDD 3 05/30/17 PE: per resident's notes ASSESSMENT AND PLAN: Patient is a 41 yr old man with recent admission 2 weeks ago under 's service for lumbar laminectomy, today presented post-op wound infection, and pseudomeningocele. # POD #1; Acute sepsis due to pseudomeningocele ; on IV abx: stephanie , Neurosurgeon , Id consult #Atkinson's esophagus ,s/p hiccups thorazine inj. Dr. Mccormack, GI will take the patient for EGD in am. DVT Px: SCDs for now, since had a recent back surgery. will check with when to anticoagulate the patient.
[2017-06-13] MEDS ORDERED: PIPERACILLIN/TAZOB 3.375 GM 50 ML IVPB SCH (18:00)
[2017-06-13] MEDS ORDERED: PIPERACILLIN/TAZOB 3.375 GM/50 ML PRE-DOCKED IVPB SCH (18:00)
--- NOTE | 2017-06-13 18:08 | CON.ID ---
Consult Consult Specialty:: infectious diseases Referred by:: Dr ruiz Reason for Consultation:: spinal infection - History of Present Illness Chief Complaint: back pain History of Present Illness: 41 yo male who had L4-L5 and L3-L4 partial laminectomy on 05/[address] Jones admitted with c/o fevers and SOB x 3 days. patinet also had yellowish discharge from the surgical site and surrounding redness and swelling. in the ed patient was running fevers and lactic acidosis patient was given abx and was taken to the or at night post currently patient in icu with drains placed in the spinal canal.patient c/ o not feeling so well has remained stable post op in the iu - History Source History Provided By: Patient, Medical Record Limitations to Obtaining History: Clinical Condition - Past Medical History Musculoskeletal: Yes: Chronic low back pain - Past Surgical History Additional Surgical History: see HP - Alcohol/Substance Use Hx Alcohol Use: No - Smoking History Smoking history: Never smoked Have you smoked in the past 12 months: No If you are a former smoker, when did you quit?: 2007 Home Medications - Allergies Allergies/Adverse Reactions: Allergies Allergy/AdvReac Type Severity Reaction Status Date / Time No Known Drug Allergies Allergy Verified 05/28/17 15:06 - Home Medications Home Medications: Ambulatory Orders Oxycodone HCl [Roxicodone -] 10 mg PO Q6H PRN #30 tablet MDD 3 05/30/17 Review of Systems - Review of Systems Constitutional: reports: Chills, Fever Eyes: reports: No Symptoms HENT: reports: No Symptoms Neck: reports: No Symptoms Cardiovascular: reports: No Symptoms Respiratory: reports: No Symptoms Gastrointestinal: reports: No Symptoms Genitourinary: reports: No Symptoms Musculoskeletal: reports: No Symptoms Integumentary: reports: No Symptoms Neurological: reports: Other (draiange from spinal panchito;) Hematology/Lymphatic: reports: No Symptoms Psychiatric: reports: No Symptoms Physical Exam Vital Signs: Vital Signs Temperature 98.0 F 06/13/17 14:00 Pulse Rate 83 06/13/17 14:00 Respiratory Rate 21 06/13/17 14:00 Blood Pressure 143/95 06/13/17 14:00 O2 Sat by Pulse Oximetry (%) 99 06/13/17 09:00 Constitutional: Yes: Well Nourished, Mild Distress Eyes: Yes: Conjunctiva Clear HENT: Yes: Atraumatic Neck: Yes: Supple, Trachea Midline Cardiovascular: Yes: Regular Rate and Rhythm Respiratory: Yes: Regular, CTA Bilaterally Gastrointestinal: Yes: Normal Bowel Sounds, Soft Musculoskeletal: Yes: WNL Extremities: Yes: WNL Wound/Incision: Yes: Dressing Dry and Intact, Other (draiange in place) Neurological: Yes: Other (post surgery) Psychiatric: Yes: Alert Labs: CBC, BMP 06/13/17 03:55 06/13/17 03:55 Imaging - Results Chest X-ray: Report Reviewed, Image Reviewed Cat Scan: Report Reviewed, Image Reviewed Assessment/Plan patient post op from wound infection, and pseudomenigocele now in the icu, stable Recent Lumbar Laminectomy CSF Leak s/p Pseudomeningocele Repair/Washout wound infection plan will continue abx vanco and zosyn will await for all cx reports monitor drainage rest as per neurosurgery cc time 45 min
[2017-06-13 18:44] LABS: CPK 258 IU/L (39-308)
[2017-06-13 18:45] LABS: TROPONIN I < 0.02 ng/ml (0.00-0.05)
[2017-06-13] MEDS: MUPIROCIN 2% TOPICAL OINTMENT FOR DECOLONIZATION NS SCH (22:20)
[2017-06-13] MEDS: CHLORHEXIDINE GLUCONATE 4% CLEANSER FOR DECOLONIZATION TP SCH (22:20)
[2017-06-14] MEDS: PIPERACILLIN/TAZOB 3.375 GM 50 ML IVPB SCH ×3 (03:00→17:15)
[2017-06-14] MEDS: HYDROmorphone HCL CARPU-JECT 1 MG/1 ML DISP.SYRIN IVPUSH PRN ×4 (05:28→22:00)
[2017-06-14] MEDS ORDERED: oxyCODONE HCL 10 MG SUSTAINED ACTING TABLET PO STA (06:09)
[2017-06-14] MEDS ORDERED: oxyCODONE HCL 5 MG TABLET ONE (06:17)
[2017-06-14 06:22] LABS: BASOPHIL 0.7 % (0-2.0); EOSINOPHIL 1.6 % (0-4.5); MCH 30.4 pg (25.7-33.7); MCHC 34.1 g/dl (32.0-35.9); MEAN CELL VOLUME 89.1 fl (80-96); MEAN PLT VOLUME 7.9 fl (7.5-11.1); NEUTROPHILS 65.8 % (42.8-82.8); PLATELET COUNT 254 K/MM3 (134-434); RDW 13.2 % (11.9-15.9); WHITE BLOOD COUNT 6.7 K/mm3 (4.0-10.0)
[2017-06-14 07:08] LABS: ALBUMIN 2.4 g/dl (3.4-5.0); ANION GAP 9 (8-16); BILIRUBIN,TOTAL 0.4 mg/dL (0.2-1.0); CALCIUM 7.8 mg/dL (8.5-10.1); CO2 25 mmol/L (21-32); CREATININE 0.7 mg/dL (0.7-1.3); GLUCOSE,RANDOM 70 mg/dL (74-106); MAGNESIUM 2.1 mg/dL (1.8-2.4); PHOSPHOROUS 3.1 mg/dL (2.5-4.9); SGOT/AST 13 U/L (15-37); SGPT/ALT 23 U/L (12-78); TOT PROT 5.2 g/dl (6.4-8.2)
[2017-06-14 07:09] LABS: ALK PHOS 43 U/L (45-117)
--- NOTE | 2017-06-14 08:12 | PN ---
Progress Note (short form) - Note Progress Note: POD #1 Alert. Resting comfortably. States he feels much better compared to day of admit to hospital. C/o mild incisional tenderness but pain controlled well via PRN medicine. Yesterday, patient seen by GI/Dr. Beck due to his Benítez's esophogus. He plans on taking him for EGD today. Also, requested Nutrition consult due to 30lb weight loss over 1 month (most likely associated with his Benítez's) --> poor protoplasm, wound healing complications. He hasn't gotten oob and ambulated yet. he is voiding spontaneously. Denies n/v/f/c, CP, SOB, numbness, tingling or weakness Last Vital Signs Temp Pulse Resp BP Pulse Ox 99 F 99 H 22 115/72 98 06/14/17 05:00 06/14/17 05:00 06/14/17 05:00 06/14/17 05:00 06/13/17 21:00 CBC, BMP 06/14/17 05:10 06/14/17 05:10 SILVER DRAIN 06/13/17 06/13/17 06:00 15:00 Left 5 20 Right 10 5 Gen: alert. nad Pulm: cta b/l anteriorly Cor: rrr Abd: soft. nt. nd. Back: Estrellita intact. No hematoma/seroma. SILVER x2 intact. LE: SCDs bilat. No pain/swelling/tenderness Problem List - Problems (1) Pseudomeningocele of spinal cord Assessment/Plan: POD #1 s/p Wound exploration, power irrigation with antibiotics associated with post-op wound infection, and pseudomenigocele Pain management PRN Dietary Consult --> nutrition eval and calorie count Monitor and record SILVER output q shift Once patient oob for > 5 mins or ambulating, he will need a TLSO brace (ordered) PT --> may participate without brace as needed, No bending at the waist. No lifiting > 8lbs Resume diet as tolerated after EGD Awaiting culture/sensitivity on intra-op specimen IV ABX per ID Downgrade to floor Above plan discussed with Dr. Jerry and agrees Code(s): G96.19 - OTHER DISORDERS OF MENINGES, NOT ELSEWHERE CLASSIFIED (2) Barretts esophagus Assessment/Plan: Going for EGD today with Dr. Beck Code(s): K22.70 - BENÍTEZ'S ESOPHAGUS WITHOUT DYSPLASIA
[2017-06-14] MEDS ORDERED: PT OWN MED DRAWER 7, Y5N ONE ×2 (08:27→09:58)
[2017-06-14] MEDS ORDERED: LIDOCAINE HCL/PF 2% SDV 5ML VIAL ONE (09:09)
[2017-06-14] MEDS ORDERED: PROPOFOL 20 ML ONE ×2 (09:09)
--- NOTE | 2017-06-14 09:13 | PN ---
Progress Note (short form) - Note Progress Note: Anesthesia POD#1 S/P Post Laminectomy wound infection washout under GA VSS,no N/V OoB to Chair. No pain issues. No complications to anesthesia seen. Vangie Gamez MD.
[2017-06-14] MEDS: HEPARIN NA (PORCINE) 5,000 UNITS/ML 1ML VIAL SQ SCH ×2 (09:52→22:34)
[2017-06-14] MEDS: MUPIROCIN 2% TOPICAL OINTMENT FOR DECOLONIZATION NS SCH ×2 (09:52→22:34)
[2017-06-14] MEDS ORDERED: VANCOMYCIN 1,250 MG in DEXTROSE 5%-WATER - 250 ML IVPB SCH (10:00)
[2017-06-14] MEDS ORDERED: PANTOPRAZOLE 40 MG TABLET (FP) PO SCH (10:00)
[2017-06-14] MEDS: chlorproMAZINE HCL 25 MG/1 ML AMP IM PRN ×2 (10:00→20:30)
--- NOTE | 2017-06-14 10:42 | EKG ---
Test Reason : Blood Pressure : / mmHG Vent. Rate : 067 BPM Atrial Rate : 067 BPM P-R Int : 138 ms QRS Dur : 106 ms QT Int : 390 ms P-R-T Axes : 065 -12 -08 degrees QTc Int : 412 ms NORMAL SINUS RHYTHM VOLTAGE CRITERIA FOR LEFT VENTRICULAR HYPERTROPHY CANNOT RULE OUT INFERIOR INFARCT (CITED ON OR BEFORE 12-JUN-2017) ABNORMAL ECG WHEN COMPARED WITH ECG OF 12-JUN-2017 21:07, QUESTIONABLE CHANGE IN INITIAL FORCES OF INFERIOR LEADS Confirmed by VERONIQUE GAY MD ([id number]) on 06/14/2017 10:41:54 AM Referred By: JOSHUA TORRES Confirmed By:VERONIQUE GAY MD
--- NOTE | 2017-06-14 10:48 | PN ---
Progress Note (short form) - Note Progress Note: Patient making good progress in terms of Temperature and WBC. Pain is reducing considerably and managed with medications. Patient verbalizes a desire to wean himself off narcotics. Short term, the patient will require support, however, hopefully over time, he will be able to achieve this laudable goal. Will continue antibiotics per Dr. Mayorga. Drains with low output suggesting no CSF at this time, however, I feel that we need to keep them for several days more. EGD performed today and ulcers noted. Nutrition consultation appreciated. Plan of care continue drains pain medications for acute needs with plans for taper over time continue antibiotics and follow cultures nutritional support. transfer to regular room
[2017-06-14] MEDS: oxyCODONE HCL 5 MG TABLET PO PRN ×2 (11:25→17:14)
--- NOTE | 2017-06-14 11:30 | PN ---
Physical Exam: 24H Events: -wound/abscess cultures growing MSSA SUBJECTIVE: Patient seen and examined in ICU. Pain well controlled. Denies SOB, chest pain, numbness and tingling in extremities. OBJECTIVE: Vital Signs Period Temp Pulse Resp BP Sys/Silva Pulse Ox Last 24 Hr 98 F-99 F 61-99 15-32 96-147/56-95 98 Intake & Output 06/11/17 06/12/17 06/13/17 06/14/17 23:59 23:59 23:59 23:59 Intake Total 1600 1290 1175 Output Total 90 540 Balance 0561 943 3306 Weight 100 kg 100 kg General: lying bed, nad, eating lunch Heart: rrr, normal S1/S2, no murmurs, rubs or gallops Lungs: CTAB, no wheezes, Abd: soft, ntnd Extr: wwp, no LE edema Neuro: 2x SILVER drains with serosanginous output, no focal deficits, decreased touch sensation in L leg 06/14/17 05:10 06/14/17 05:10 06/14/17 05:10 Calcium 7.8 L Phosphorus 3.1 Magnesium 2.1 Total Bilirubin 0.4 mg/dL (0.2-1.0) D 06/14/17 05:10 AST 13 U/L (15-37) L D 06/14/17 05:10 ALT 23 U/L (12-78) D 06/14/17 05:10 Alkaline Phosphatase 43 U/L (45-117) L 06/14/17 05:10 Albumin 2.4 g/dl (3.4-5.0) L 06/14/17 05:10 Microbiology 06/13/17 00:17 Back Wound Culture - Preliminary Presumptive Mssa (Pbp2a Neg) 06/12/17 21:22 Abscess Wound Culture - Preliminary Non Lactose Fermenting Gnb Presumptive Mssa (Pbp2a Neg) 06/13/17 11:29 Urine - Urine Clean Catch Urine Culture - Final NO GROWTH OBTAINED 06/12/17 21:35 Blood - Peripheral Venous Blood Culture - Preliminary NO GROWTH OBTAINED AFTER 24 HOURS, INCUBATION TO CONTINUE FOR 4 DAYS. 06/12/17 21:35 Blood - Peripheral Venous Blood Culture - Preliminary NO GROWTH OBTAINED AFTER 24 HOURS, INCUBATION TO CONTINUE FOR 4 DAYS. Active Medications Chlorhexidine Gluconate (Hibiclens For Decolonization -) 1 applic TP HS [facility] Last Admin: 06/13/17 22:20 Dose: 1 applic Chlorpromazine HCl (Thorazine Injection -) 25 mg IM Q6H PRN PRN Reason: NAUSEA AND/OR VOMITING Last Admin: 06/14/17 10:00 Dose: 25 mg Heparin Sodium (Porcine) (Heparin -) 5,000 unit SQ BID [facility] Last Admin: 06/14/17 09:52 Dose: 5,000 unit Hydromorphone HCl (Dilaudid Injection -) 1 mg IVPUSH Q4H PRN PRN Reason: PAIN Last Admin: 06/14/17 09:49 Dose: 1 mg Sodium Chloride (1/2 Normal Saline) 1,000 mls @ 75 mls/hr IV ASDIR [facility] Last Admin: 06/13/17 17:31 Dose: 75 mls/hr Piperacillin Sod/Tazobactam Sod (Zosyn 3.375gm Ivpb (Pre-Docked)) 50 mls @ 100 mls/hr IVPB Q8H-IV [facility] PRN Reason: Protocol Last Admin: 06/14/17 09:51 Dose: 100 mls/hr Vancomycin HCl 1,250 mg/ (Dextrose) 250 mls @ 166.667 mls/hr IVPB DAILY [facility] PRN Reason: Protocol Last Admin: 06/14/17 09:51 Dose: 166.667 mls/hr Mupirocin (Bactroban Ointment (For Decolonization) -) 1 applic NS BID [facility] Stop: 06/18/17 21:59 Last Admin: 06/14/17 09:52 Dose: 1 applic Oxycodone HCl (Roxicodone -) 10 mg PO Q6H PRN PRN Reason: PAIN Last Admin: 06/14/17 11:25 Dose: 10 mg Pantoprazole Sodium (Protonix -) 40 mg PO DAILY [facility] Last Admin: 06/14/17 09:52 Dose: 40 mg ASSESSMENT/PLAN: 41yo M s/p lumbar decompression 6 weeks ago requiring partial lumbar laminectomy (L3-4 and 4-5) revision on 05/28 c/b CSF leak and infection who is POD2 from surgical washout and antibiotic irrigation of wound and repair of pseudomeningocele. Wound culture growing MSSA #spinal wound debridement/washout -ID consulted -Started Vanc and Zosyn -f/u cultures -monitor SILVER output -dilaudid and roxicodone PRN for pain -supplemental O2 as needed #FEN -IVF - hold -lytes wnl -Regular diet #PPX -DVT -Heparin 5000U sq BID -GI - on home protonix 40mg PO daily #Dispo: transfer to Med/Surg FULL Code d/w Dr. Harshad Moreno MD PGY-1 Visit type - Emergency Visit Emergency Visit: No - New Patient This patient is new to me today: No - Critical Care Critical Care patient: Yes Total Critical Care Time (in minutes): 35 Critical Care Statement: The care of this patient involved high complexity decision making to prevent further life threatening deterioration of the patient 's condition and/or to evaluate & treat vital organ system(s) failure or risk of failure.
--- NOTE | 2017-06-14 11:54 | PN ---
Teaching Attending Note Name of Resident: Noreen Moreno ATTENDING PHYSICIAN STATEMENT I saw and evaluated the patient. I reviewed the resident's note and discussed the case with the resident. I agree with the resident's findings and plan as documented. SUBJECTIVE: Pt seen and examined in the ICU. Pain controlled. Denies fevers or chills. No shortness of breath or chest pain. OBJECTIVE: Last Vital Signs Temp Pulse Resp BP Pulse Ox 98.3 F 74 32 H 116/78 98 06/14/17 10:00 06/14/17 10:00 06/14/17 10:00 06/14/17 10:00 06/13/17 21:00 Intake & Output 06/11/17 06/12/17 06/13/17 06/14/17 23:59 23:59 23:59 23:59 Intake Total 1600 1290 1175 Output Total 90 540 Balance 6630 723 6514 Weight 220 lb 7.396 oz 220 lb 7.396 oz Gen: NAD at rest Neck: serosanguinous drainage Heart: RRR Lung: clear to auscultation Abd: soft, nontender Ext: no edema CBC, BMP 06/14/17 05:10 06/14/17 05:10 Active Medications Chlorhexidine Gluconate (Hibiclens For Decolonization -) 1 applic TP HS [facility] Last Admin: 06/13/17 22:20 Dose: 1 applic Chlorpromazine HCl (Thorazine Injection -) 25 mg IM Q6H PRN PRN Reason: NAUSEA AND/OR VOMITING Last Admin: 06/14/17 10:00 Dose: 25 mg Heparin Sodium (Porcine) (Heparin -) 5,000 unit SQ BID [facility] Last Admin: 06/14/17 09:52 Dose: 5,000 unit Hydromorphone HCl (Dilaudid Injection -) 1 mg IVPUSH Q4H PRN PRN Reason: PAIN Last Admin: 06/14/17 09:49 Dose: 1 mg Sodium Chloride (1/2 Normal Saline) 1,000 mls @ 75 mls/hr IV ASDIR [facility] Last Admin: 06/13/17 17:31 Dose: 75 mls/hr Piperacillin Sod/Tazobactam Sod (Zosyn 3.375gm Ivpb (Pre-Docked)) 50 mls @ 100 mls/hr IVPB Q8H-IV [facility] PRN Reason: Protocol Last Admin: 06/14/17 09:51 Dose: 100 mls/hr Vancomycin HCl 1,250 mg/ (Dextrose) 250 mls @ 166.667 mls/hr IVPB DAILY [facility] PRN Reason: Protocol Last Admin: 06/14/17 09:51 Dose: 166.667 mls/hr Mupirocin (Bactroban Ointment (For Decolonization) -) 1 applic NS BID [facility] Stop: 06/18/17 21:59 Last Admin: 06/14/17 09:52 Dose: 1 applic Oxycodone HCl (Roxicodone -) 10 mg PO Q6H PRN PRN Reason: PAIN Last Admin: 06/14/17 11:25 Dose: 10 mg Pantoprazole Sodium (Protonix -) 40 mg PO DAILY [facility] Last Admin: 06/14/17 09:52 Dose: 40 mg ASSESSMENT AND PLAN: Recent Lumbar Laminectomy CSF Leak s/p Pseudomeningocele Repair/Washout - pain control - continue antibiotics - f/u cultures - monitor drain output - PO as tolerated - DVT prophylaxis - can monitor on floor
--- NOTE | 2017-06-14 17:22 | PN ---
Teaching Attending Note Name of Resident: Nakita Haynes ATTENDING PHYSICIAN STATEMENT I saw and evaluated the patient. I reviewed the resident's note and discussed the case with the resident. I agree with the resident's findings and plan as documented. SUBJECTIVE: Patient is c/o having headache, , neurosurgeon was notified. OBJECTIVE: Vital Signs Temperature 98.6 F 06/14/17 14:00 Pulse Rate 86 06/14/17 16:24 Respiratory Rate 18 06/14/17 16:24 Blood Pressure 112/72 06/14/17 16:24 O2 Sat by Pulse Oximetry (%) 98 06/13/17 21:00 CBCD WBC 6.7 K/mm3 (4.0-10.0) D 06/14/17 05:10 RBC 4.04 M/mm3 (4.00-5.60) 06/14/17 05:10 Hgb 12.3 GM/dL (11.7-16.9) D 06/14/17 05:10 Hct 36.0 % (35.4-49) 06/14/17 05:10 MCV 89.1 fl (80-96) 06/14/17 05:10 MCHC 34.1 g/dl (32.0-35.9) 06/14/17 05:10 RDW 13.2 % (11.9-15.9) 06/14/17 05:10 Plt Count 254 K/MM3 (134-434) 06/14/17 05:10 MPV 7.9 fl (7.5-11.1) 06/14/17 05:10 CMP Sodium 142 mmol/L (136-145) 06/14/17 05:10 Potassium 3.6 mmol/L (3.5-5.1) 06/14/17 05:10 Chloride 108 mmol/L (98-107) H 06/14/17 05:10 Carbon Dioxide 25 mmol/L (21-32) 06/14/17 05:10 Anion Gap 9 (8-16) 06/14/17 05:10 BUN 8 mg/dL (7-18) 06/14/17 05:10 Creatinine 0.7 mg/dL (0.7-1.3) 06/14/17 05:10 Creat Clearance w eGFR > 60 (>60) 06/14/17 05:10 Random Glucose 70 mg/dL (74-106) L D 06/14/17 05:10 Calcium 7.8 mg/dL (8.5-10.1) L 06/14/17 05:10 Total Bilirubin 0.4 mg/dL (0.2-1.0) D 06/14/17 05:10 AST 13 U/L (15-37) L D 06/14/17 05:10 ALT 23 U/L (12-78) D 06/14/17 05:10 Alkaline Phosphatase 43 U/L (45-117) L 06/14/17 05:10 Total Protein 5.2 g/dl (6.4-8.2) L 06/14/17 05:10 Albumin 2.4 g/dl (3.4-5.0) L 06/14/17 05:10 CARDIAC ENZYMES Creatine Kinase 258 IU/L (39-308) 06/13/17 17:00 Troponin I < 0.02 ng/ml (0.00-0.05) 06/13/17 17:00 Home Medications Medication Instructions Recorded Oxycodone HCl [Roxicodone -] 10 mg PO Q6H PRN #30 tablet MDD 3 05/30/17 PE:per resident's note 2 SILVER drainage from his back , right less drainage than the left. ASSESSMENT AND PLAN: Patient is a 41 yr old man with recent admission 2 weeks ago under 's service for lumbar laminectomy, today presented post-op wound infection, and pseudomeningocele. s/p Pseudomeningocele Repair/Washout wound infection # POD #2 s/p Psuedomeningocele repair and washout by Neurosurgeon. further management as per surgeon # S/p sepsis due to wound infection s/p wash out ,Antibiotic management as per ID on Zosyn IV # s/p EGD by Dr. Mccormack GI; no evidence of Atkinson's esophagus ,s/p hiccups s/p thorazine inj. as per GI EGD report no evidence of Harry's esophagus, 3 small non bleeding ulcer in the gastric fundus. Follow with Kiran Wilcox post discharge from the hospital , Nexium was recommended. DVT Px: SCDs
--- NOTE | 2017-06-14 17:59 | PN ---
Physical Exam: SUBJECTIVE: Patient seen and examined Had EGD today. Now c/o of headache radiating to neck. Headache is generalized. No chills or rigors. Was able to walk around today. OBJECTIVE: Vital Signs Period Temp Pulse Resp BP Sys/Silva Pulse Ox Last 24 Hr 98.0 F-99 F 61-99 15-32 96-121/56-90 98 GENERAL: Awake, alert, and fully oriented, in no acute distress. HEAD: Normal with no signs of trauma. EYES: ? Photophobia, Pupils miosed equal, and reactive to light, extraocular movements intact, sclera anicteric, conjunctiva clear. No lid lag. EARS, NOSE, THROAT: Ears normal, nares patent, oropharynx clear without exudates. Moist mucous membranes. NECK: No neck stiffness noted but patient bends chin over chest with some limitation, due to pain. LUNGS: Breath sounds equal, clear to auscultation bilaterally. No wheezes, and no crackles. No accessory muscle use. HEART: Regular rate and rhythm, normal S1 and S2 without murmur, rub or gallop. ABDOMEN: Soft, nontender, not distended, normoactive bowel sounds, no guarding, no rebound, no masses. No hepatomegaly or splenomegaly. MUSCULOSKELETAL: Lower midline back dressing with drain in place, draining sero- sanguinous fluid. Normal range of motion except for chronic limitation of L foot dorsiflexion (present prior to admission). Appropriate tenderness over wound site UPPER EXTREMITIES: 2+ pulses, warm, well-perfused. No cyanosis. No clubbing. No peripheral edema. LOWER EXTREMITIES: 2+ pulses, warm, well-perfused. No calf tenderness. No peripheral edema. Except as documented above for L NEUROLOGICAL: Cranial nerves II-XII intact. No facial droop seen. Normal speech. Gait not observed. PSYCHIATRIC: Cooperative. Good eye contact. Appropriate mood and affect. SKIN: Warm, dry, normal turgor, no rashes or lesions noted, normal capillary refill. Laboratory Results - last 24 hr 06/13/17 06/14/17 06/14/17 17:00 05:10 05:10 WBC 6.7 D RBC 4.04 Hgb 12.3 D Hct 36.0 MCV 89.1 MCH 30.4 MCHC 34.1 RDW 13.2 Plt Count 254 MPV 7.9 Neutrophils % 65.8 Lymphocytes % 22.7 D Monocytes % 9.2 Eosinophils % 1.6 D Basophils % 0.7 Sodium 142 Potassium 3.6 Chloride 108 H Carbon Dioxide 25 Anion Gap 9 BUN 8 Creatinine 0.7 Creat Clearance w eGFR > 60 Random Glucose 70 L D Calcium 7.8 L Phosphorus 3.1 Magnesium 2.1 Total Bilirubin 0.4 D AST 13 L D ALT 23 D Alkaline Phosphatase 43 L Creatine Kinase 258 Creatine Kinase Index 1.7 CK-MB (CK-2) 4.576 H Troponin I < 0.02 Total Protein 5.2 L Albumin 2.4 L Active Medications Generic Name Dose Route Start Last Admin Trade Name Freq PRN Reason Stop Dose Admin Chlorhexidine Gluconate 1 applic 06/13/17 22:00 06/13/17 22:20 Hibiclens For Decolonization - TP 1 applic HS [facility] Administration Chlorpromazine HCl 25 mg 06/13/17 12:53 06/14/17 10:00 Thorazine Injection - IM 25 mg Q6H PRN Administration NAUSEA AND/OR VOMITING Heparin Sodium (Porcine) 5,000 unit 06/13/17 10:00 06/14/17 09:52 Heparin - SQ 5,000 unit BID [facility] Administration Hydromorphone HCl 1 mg 06/13/17 05:08 06/14/17 16:20 Dilaudid Injection - IVPUSH 1 mg Q4H PRN Administration PAIN Piperacillin Sod/Tazobactam Sod 50 mls @ 100 mls/hr 06/14/17 02:00 06/14/17 17: 15 Zosyn 3.375gm Ivpb (Pre-Docked) IVPB 100 mls/hr Q8H-IV [facility] Administration Protocol Vancomycin HCl 1,250 mg/ 250 mls @ 166.667 mls/hr 06/14/17 10:00 06/14/17 09:51 Dextrose IVPB 166.667 mls/hr DAILY [facility] Administration Protocol Lactated Ringer's 1,000 mls @ 75 mls/hr 06/14/17 18:00 Lactated Ringers Solution IV ASDIR [facility] Mupirocin 1 applic 06/13/17 22:00 06/14/17 09:52 Bactroban Ointment (For Decolonization) - NS 06/18/17 21:59 1 applic BID [facility] Administration Oxycodone HCl 10 mg 06/14/17 10:59 06/14/17 17:14 Roxicodone - PO 10 mg Q6H PRN Administration PAIN Pantoprazole Sodium 40 mg 06/14/17 10:00 06/14/17 09:52 Protonix - PO 40 mg DAILY [facility] Administration ASSESSMENT/PLAN: A 41 year old male who presented with a history of fever, N/V, back pain and CSF leak s/p laminectomy 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: History of fever and chills, tachypnea, tachycardia, elevated lactic acid, and pus discharge from laminectomy wound site IVF [id number] mg daily IVPB Zosyn- 3.375 g IVPB Wound wash out-done ID consult- Dr Mayorga on board-On Vanco and zosyn Pain control- hydromorphone and oxycodone Abscess culture-Non Lactose fermenting GNB- presumptive MSSA Wound culture- - presumptive MSSA Urine culture-no growth Blood culture-no growth #Barretts esophagus: Diagnosed in 2009 Has has more recent flares GI Consult-Had EGD Now on regular diet pantoprazole 40 mg #Headache: No fever, leucocytosis improved today, no associated n/v, or neck stiffness ? positional, R/O CSF leak, drain still draining serosanguinous fluid IVF LR @75mls/hr Monitor closely Neurosurgeon - contacted Continue antibiotics #Prophylaxis DVT: Bilateral SCDs GI: On pantoprazole #FEN [place] oral fluids as tolerated IV LR Monitor electrolytes Visit type - Emergency Visit Emergency Visit: Yes ED Registration Date: 06/13/17 Care time: The patient presented to the Emergency Department on the above date and was hospitalized for further evaluation of their emergent condition. - New Patient This patient is new to me today: No - Critical Care Critical Care patient: Yes Total Critical Care Time (in minutes): 37 Critical Care Statement: The care of this patient involved high complexity decision making to prevent further life threatening deterioration of the patient 's condition and/or to evaluate & treat vital organ system(s) failure or risk of failure. - Discharge Referral Referred to [facility] Med [facility].C[facility] No
--- NOTE | 2017-06-14 19:08 | PN ---
Progress Note, Physician History of Present Illness: patient c/o of sever headaches unable to open the eyes says headache worsens when he opens eyes some neck pain - Current Medication List Current Medications: Active Medications Chlorhexidine Gluconate (Hibiclens For Decolonization -) 1 applic TP HS [facility] Last Admin: 06/13/17 22:20 Dose: 1 applic Chlorpromazine HCl (Thorazine Injection -) 25 mg IM Q6H PRN PRN Reason: NAUSEA AND/OR VOMITING Last Admin: 06/14/17 10:00 Dose: 25 mg Heparin Sodium (Porcine) (Heparin -) 5,000 unit SQ BID [facility] Last Admin: 06/14/17 09:52 Dose: 5,000 unit Hydromorphone HCl (Dilaudid Injection -) 1 mg IVPUSH Q4H PRN PRN Reason: PAIN Last Admin: 06/14/17 16:20 Dose: 1 mg Piperacillin Sod/Tazobactam Sod (Zosyn 3.375gm Ivpb (Pre-Docked)) 50 mls @ 100 mls/hr IVPB Q8H-IV [facility] PRN Reason: Protocol Last Admin: 06/14/17 17:15 Dose: 100 mls/hr Vancomycin HCl 1,250 mg/ (Dextrose) 250 mls @ 166.667 mls/hr IVPB DAILY [facility] PRN Reason: Protocol Last Admin: 06/14/17 09:51 Dose: 166.667 mls/hr Lactated Ringer's (Lactated Ringers Solution) 1,000 mls @ 75 mls/hr IV ASDIR [facility] Mupirocin (Bactroban Ointment (For Decolonization) -) 1 applic NS BID [facility] Stop: 06/18/17 21:59 Last Admin: 06/14/17 09:52 Dose: 1 applic Oxycodone HCl (Roxicodone -) 10 mg PO Q6H PRN PRN Reason: PAIN Last Admin: 06/14/17 17:14 Dose: 10 mg Pantoprazole Sodium (Protonix -) 40 mg PO DAILY [facility] Last Admin: 06/14/17 09:52 Dose: 40 mg - Objective Vital Signs: Vital Signs Temperature 98.6 F 06/14/17 14:00 Pulse Rate 60 06/14/17 18:00 Respiratory Rate 18 06/14/17 18:00 Blood Pressure 132/82 06/14/17 18:00 O2 Sat by Pulse Oximetry (%) 98 06/13/17 21:00 Constitutional: Yes: Calm, Moderate Distress HENT: Yes: Other (tenderne in the cervical spinal region) Cardiovascular: Yes: Regular Rate and Rhythm Respiratory: Yes: Regular, CTA Bilaterally Gastrointestinal: Yes: Normal Bowel Sounds, Soft Musculoskeletal: Yes: WNL Extremities: Yes: WNL Wound/Incision: Yes: Dressing Dry and Intact, Other (draiange tube in place) Neurological: Yes: Alert, Oriented, Other Psychiatric: Yes: Alert, Oriented Labs: CBC, BMP 06/14/17 05:10 06/14/17 05:10 INR, PTT INR 1.40 (0.82-1.09) H 06/12/17 21:13 Assessment/Plan patient post op from wound infection, and pseudomenigocele now in the icu, stable Recent Lumbar Laminectomy CSF Leak s/p Pseudomeningocele Repair/Washout wound infection plan conitnue current abx will await for gm negative cx report from th wound based on that will adjust abx monitor drainage rest as per neurosurgery cc time 40 min
[2017-06-14] MEDS ORDERED: ACETAMINOPHEN/CAFFEINE/BUTALBITAL 1 TAB ONE (20:10)
[2017-06-14] MEDS ORDERED: ACETAMINOPHEN/CAFFEINE/BUTALBITAL 1 TAB PO ONE (20:15)
[2017-06-14] MEDS: LACTATED RINGERS SOLUTION 1,000 ML IV SCH (22:33)
[2017-06-14] MEDS: CHLORHEXIDINE GLUCONATE 4% CLEANSER FOR DECOLONIZATION TP SCH (22:35)
[2017-06-15] MEDS: oxyCODONE HCL 5 MG TABLET PO PRN ×3 (01:54→14:23)
[2017-06-15] MEDS: PIPERACILLIN/TAZOB 3.375 GM 50 ML IVPB SCH ×3 (02:00→17:24)
[2017-06-15] MEDS: HYDROmorphone HCL CARPU-JECT 1 MG/1 ML DISP.SYRIN IVPUSH PRN ×4 (02:07→19:53)
[2017-06-15] MEDS ORDERED: ACETAMINOPHEN/CAFFEINE/BUTALBITAL 1 TAB PO ONE (04:23)
--- NOTE | 2017-06-15 06:53 | PN ---
Physical Exam: 24H events: yesterday - EGD, NBNB emesis x1 post EGD; MSSA in wound SUBJECTIVE: Patient seen and examined in ICU. C/o WILBURN and neck pain. No fevers, chills, n/v. Denies chest pain and SOB. OBJECTIVE: Vital Signs Period Temp Pulse Resp BP Sys/Silva Pulse Ox Last 24 Hr 98.3 F-100.2 F 59-98 18-32 102-142/60-97 95 Intake & Output 06/12/17 06/13/17 06/14/17 06/15/17 23:59 23:59 23:59 23:59 Intake Total 1600 1290 3440 537.5 Output Total 90 540 25 Balance 2294 437 6038 537.5 Weight 100 kg 100 kg General: lying flat in bed, blanket over head, nad Heart: rrr, normal S1/S2, no murmurs, rubs or gallops Neck: supple, ROM limited 2/2 to patient's pain; 2xJP drains with serosanginous discharge Lungs: CTAB, no wheezes, Abd: soft, ntnd Extr: wwp, no LE edema Neuro: No focal deficits, decreased touch sensation in L foot; 5/5 muscle strength except 4/5 L dorsiflexion CBC, BMP 06/15/17 05:30 06/15/17 05:30 Hepatic Panel Total Bilirubin 0.4 mg/dL (0.2-1.0) D 06/14/17 05:10 AST 13 U/L (15-37) L D 06/14/17 05:10 ALT 23 U/L (12-78) D 06/14/17 05:10 Alkaline Phosphatase 43 U/L (45-117) L 06/14/17 05:10 Albumin 2.4 g/dl (3.4-5.0) L 06/14/17 05:10 06/13/17 00:17 Back Wound Culture - Preliminary Presumptive Mssa (Pbp2a Neg) 06/12/17 21:22 Abscess Wound Culture - Preliminary Non Lactose Fermenting Gnb Presumptive Mssa (Pbp2a Neg) 06/13/17 11:29 Urine - Urine Clean Catch Urine Culture - Final NO GROWTH OBTAINED 06/12/17 21:35 Blood - Peripheral Venous Blood Culture - Preliminary NO GROWTH OBTAINED AFTER 24 HOURS, INCUBATION TO CONTINUE FOR 4 DAYS. 06/12/17 21:35 Blood - Peripheral Venous Blood Culture - Preliminary NO GROWTH OBTAINED AFTER 24 HOURS, INCUBATION TO CONTINUE FOR 4 DAYS. Active Medications Chlorhexidine Gluconate (Hibiclens For Decolonization -) 1 applic TP HS [facility] Chlorpromazine HCl (Thorazine Injection -) 25 mg IM Q6H PRN PRN Reason: NAUSEA AND/OR VOMITING Cyclobenzaprine HCl (Flexeril -) 10 mg PO DAILY [facility] Last Admin: 06/15/17 12:38 Dose: 10 mg Heparin Sodium (Porcine) (Heparin -) 5,000 unit SQ BID [facility] Last Admin: 06/15/17 09:37 Dose: 5,000 unit Hydromorphone HCl (Dilaudid Injection -) 1 mg IVPUSH Q4H PRN PRN Reason: PAIN Last Admin: 06/15/17 10:29 Dose: 1 mg Lactated Ringer's (Lactated Ringers Solution) 1,000 mls @ 75 mls/hr IV ASDIR [facility] Last Admin: 06/14/17 22:33 Dose: Not Given Vancomycin HCl 1,250 mg/ (Dextrose) 250 mls @ 166.667 mls/hr IVPB DAILY [facility] PRN Reason: Protocol Last Admin: 06/15/17 09:38 Dose: 166.667 mls/hr Piperacillin Sod/Tazobactam Sod (Zosyn 3.375gm Ivpb (Pre-Docked)) 50 mls @ 100 mls/hr IVPB Q8H-IV [facility] PRN Reason: Protocol Last Admin: 06/15/17 09:38 Dose: 100 mls/hr Mupirocin (Bactroban Ointment (For Decolonization) -) 1 applic NS BID [facility] Stop: 06/18/17 21:59 Last Admin: 06/15/17 11:37 Dose: 1 applic Oxycodone HCl (Roxicodone -) 10 mg PO Q6H PRN PRN Reason: PAIN Last Admin: 06/15/17 08:34 Dose: 10 mg Pantoprazole Sodium (Protonix -) 40 mg PO DAILY [facility] Last Admin: 06/15/17 09:37 Dose: 40 mg ASSESSMENT/PLAN: 41yo M s/p lumbar decompression 6 weeks ago requiring partial lumbar laminectomy (L3-4 and 4-5) revision on 05/28 c/b CSF leak and infection who is POD3 from surgical washout and antibiotic irrigation of wound and pseduomeningocele repair. Patient continues to have neck pain and stiffness and posterior WILBURN, which is likely due to operation. #pseudomeningocele repair/wound washout -ID consulted -Antibiotics per ID (Vanc and Zosyn): Cultures +MSSA -monitor SILVER output -dilaudid and roxicodone PRN for pain -Add flexeril 10mg PO for pain -supplemental O2 as needed #FEN -IVF - hold -lytes wnl -Regular diet #PPX -DVT -Heparin 5000U sq BID -GI - on home protonix 40mg PO daily #Dispo: Transfer to floors if okay with neurosurgery FULL Code d/w Dr. Claritza Moreno MD PGY-1 Visit type - Emergency Visit Emergency Visit: No - New Patient This patient is new to me today: No - Critical Care Critical Care patient: Yes Total Critical Care Time (in minutes): 35 Critical Care Statement: The care of this patient involved high complexity decision making to prevent further life threatening deterioration of the patient 's condition and/or to evaluate & treat vital organ system(s) failure or risk of failure.
[2017-06-15 06:59] LABS: BASOPHIL 0.6 % (0-2.0); EOSINOPHIL 0.4 % (0-4.5); MCH 29.6 pg (25.7-33.7); MCHC 33.8 g/dl (32.0-35.9); MEAN CELL VOLUME 87.5 fl (80-96); MEAN PLT VOLUME 7.3 fl (7.5-11.1); NEUTROPHILS 65.7 % (42.8-82.8); PLATELET COUNT 247 K/MM3 (134-434); RDW 13.2 % (11.9-15.9); WHITE BLOOD COUNT 8.1 K/mm3 (4.0-10.0)
--- NOTE | 2017-06-15 07:42 | PN ---
Progress Note, Physician History of Present Illness: No events overnight. Hiccups resolved - Current Medication List Current Medications: Active Medications Chlorhexidine Gluconate (Hibiclens For Decolonization -) 1 applic TP HS [facility] Last Admin: 06/14/17 22:35 Dose: 1 applic Chlorpromazine HCl (Thorazine Injection -) 25 mg IM Q6H PRN PRN Reason: NAUSEA AND/OR VOMITING Last Admin: 06/14/17 20:30 Dose: 25 mg Heparin Sodium (Porcine) (Heparin -) 5,000 unit SQ BID [facility] Last Admin: 06/14/17 22:34 Dose: 5,000 unit Hydromorphone HCl (Dilaudid Injection -) 1 mg IVPUSH Q4H PRN PRN Reason: PAIN Last Admin: 06/15/17 06:00 Dose: 1 mg Piperacillin Sod/Tazobactam Sod (Zosyn 3.375gm Ivpb (Pre-Docked)) 50 mls @ 100 mls/hr IVPB Q8H-IV [facility] PRN Reason: Protocol Last Admin: 06/15/17 02:00 Dose: 100 mls/hr Vancomycin HCl 1,250 mg/ (Dextrose) 250 mls @ 166.667 mls/hr IVPB DAILY [facility] PRN Reason: Protocol Last Admin: 06/14/17 09:51 Dose: 166.667 mls/hr Lactated Ringer's (Lactated Ringers Solution) 1,000 mls @ 75 mls/hr IV ASDIR [facility] Last Admin: 06/14/17 22:33 Dose: Not Given Mupirocin (Bactroban Ointment (For Decolonization) -) 1 applic NS BID [facility] Stop: 06/18/17 21:59 Last Admin: 06/14/17 22:34 Dose: 1 applic Oxycodone HCl (Roxicodone -) 10 mg PO Q6H PRN PRN Reason: PAIN Last Admin: 06/15/17 01:54 Dose: 10 mg Pantoprazole Sodium (Protonix -) 40 mg PO DAILY [facility] Last Admin: 06/14/17 09:52 Dose: 40 mg - Objective Vital Signs: Vital Signs Temperature 100.2 F H 06/15/17 02:00 Pulse Rate 59 L 06/15/17 04:00 Respiratory Rate 18 06/15/17 04:00 Blood Pressure 116/74 06/15/17 04:00 O2 Sat by Pulse Oximetry (%) 95 06/14/17 20:49 Constitutional: Yes: No Distress, Calm Cardiovascular: Yes: Regular Rate and Rhythm Respiratory: Yes: Regular Gastrointestinal: Yes: Normal Bowel Sounds Labs: CBC, BMP 06/15/17 05:30 INR, PTT INR 1.40 (0.82-1.09) H 06/12/17 21:13 Problem List - Problems (1) Hiccups Code(s): R06.6 - HICCOUGH (2) Reflux esophagitis Code(s): K21.0 - GASTRO-ESOPHAGEAL REFLUX DISEASE WITH ESOPHAGITIS Impression/Plan Impression/Plan: Hiccups resolved. Continue PPI daily Consider changing chlorpromazine IM to PO Visit type - Emergency Visit Emergency Visit: No - New Patient This patient is new to me today: No - Critical Care Critical Care patient: No
[2017-06-15 08:06] LABS: ANION GAP 7 (8-16); CALCIUM 8.1 mg/dL (8.5-10.1); CO2 27 mmol/L (21-32); CREATININE 0.9 mg/dL (0.7-1.3); GLUCOSE,RANDOM 98 mg/dL (74-106); MAGNESIUM 1.7 mg/dL (1.8-2.4); PHOSPHOROUS 3.3 mg/dL (2.5-4.9)
[2017-06-15] MEDS ORDERED: MAGNESIUM SULF 50% (8.12 MEQ/2 ML-1 GM VIAL) IVPB ONE (09:30)
[2017-06-15] MEDS: HEPARIN NA (PORCINE) 5,000 UNITS/ML 1ML VIAL SQ SCH ×2 (09:37→21:25)
[2017-06-15] MEDS: PANTOPRAZOLE 40 MG TABLET (FP) PO SCH (09:37)
[2017-06-15] MEDS ORDERED: VANCOMYCIN 1,250 MG in DEXTROSE 5%-WATER - 250 ML IVPB SCH (10:00)
--- NOTE | 2017-06-15 10:10 | PN ---
Physical Exam: SUBJECTIVE: Patient seen and examined OBJECTIVE: Vital Signs Period Temp Pulse Resp BP Sys/Silva Pulse Ox Last 24 Hr 98.6 F-100.2 F 59-98 18-20 102-142/60-97 95 GENERAL: Awake, alert, and fully oriented, in no acute distress. HEAD: Normal with no signs of trauma. EYES: ? Photophobia, Pupils miosed equal, and reactive to light, extraocular movements intact, sclera anicteric, conjunctiva clear. No lid lag. EARS, NOSE, THROAT: Ears normal, nares patent, oropharynx clear without exudates. Moist mucous membranes. NECK: No neck stiffness noted but patient bends chin over chest with some limitation, due to pain. LUNGS: Breath sounds equal, clear to auscultation bilaterally. No wheezes, and no crackles. No accessory muscle use. HEART: Regular rate and rhythm, normal S1 and S2 without murmur, rub or gallop. ABDOMEN: Soft, nontender, not distended, normoactive bowel sounds, no guarding, no rebound, no masses. No hepatomegaly or splenomegaly. MUSCULOSKELETAL: Lower midline back dressing with drain in place, draining sero- sanguinous fluid. Normal range of motion except for chronic limitation of L foot dorsiflexion (present prior to admission). Appropriate tenderness over wound site UPPER EXTREMITIES: 2+ pulses, warm, well-perfused. No cyanosis. No clubbing. No peripheral edema. LOWER EXTREMITIES: 2+ pulses, warm, well-perfused. No calf tenderness. No peripheral edema. Except as documented above for L NEUROLOGICAL: Cranial nerves II-XII intact. No facial droop seen. Normal speech. Gait not observed. PSYCHIATRIC: Cooperative. Good eye contact. Appropriate mood and affect. SKIN: Warm, dry, normal turgor, no rashes or lesions noted, normal capillary refill. Laboratory Results - last 24 hr Microbiology 06/13/17 00:17 Back Gram Stain - Final 06/12/17 21:22 Abscess Gram Stain - Final 06/13/17 00:17 Back Wound Culture - Preliminary Staphylococcus Aureus 06/12/17 21:22 Abscess Wound Culture - Preliminary Non Lactose Fermenting Gnb Staphylococcus Aureus 06/15/17 06/15/17 05:30 05:30 WBC 8.1 RBC 4.27 Hgb 12.7 Hct 37.4 MCV 87.5 MCH 29.6 MCHC 33.8 RDW 13.2 Plt Count 247 MPV 7.3 L Neutrophils % 65.7 Lymphocytes % 20.5 Monocytes % 12.8 H Eosinophils % 0.4 Basophils % 0.6 Sodium 136 Potassium 3.6 Chloride 102 Carbon Dioxide 27 Anion Gap 7 L BUN 4 L D Creatinine 0.9 D Random Glucose 98 D Calcium 8.1 L Phosphorus 3.3 Magnesium 1.7 L Active Medications Generic Name Dose Route Start Last Admin Trade Name Freq PRN Reason Stop Dose Admin Chlorhexidine Gluconate 1 applic 06/15/17 22:00 Hibiclens For Decolonization - TP HS LEENA Chlorpromazine HCl 25 mg 06/15/17 08:01 Thorazine Injection - IM Q6H PRN NAUSEA AND/OR VOMITING Heparin Sodium (Porcine) 5,000 unit 06/15/17 10:00 06/15/17 09:37 Heparin - SQ 5,000 unit BID [facility]EE[facility] Administration Hydromorphone HCl 1 mg 06/15/17 08:01 Dilaudid Injection - IVPUSH Q4H PRN PAIN Lactated Ringer's 1,000 mls @ 75 mls/hr 06/14/17 18:00 06/14/17 22:33 Lactated Ringers Solution IV Not Given ASDIR [facility]EE[facility] Vancomycin HCl 1,250 mg/ 250 mls @ 166.667 mls/hr 06/15/17 10:00 06/15/17 09:38 Dextrose IVPB 166.667 mls/hr DAILY [facility] Administration Protocol Piperacillin Sod/Tazobactam Sod 50 mls @ 100 mls/hr 06/15/17 10:00 06/15/17 09: 38 Zosyn 3.375gm Ivpb (Pre-Docked) IVPB 100 mls/hr Q8H-IV [facility]EE[facility] Administration Protocol Mupirocin 1 applic 06/15/17 10:00 Bactroban Ointment (For Decolonization) - NS 06/18/17 21:59 BID [facility]EE[facility] Oxycodone HCl 10 mg 06/14/17 10:59 06/15/17 08:34 Roxicodone - PO 10 mg Q6H PRN Administration PAIN Pantoprazole Sodium 40 mg 06/15/17 10:00 06/15/17 09:37 Protonix - PO 40 mg DAILY [facility]EE[facility] Administration ASSESSMENT/PLAN: A 41 year old male who presented with a history of fever, N/V, back pain and CSF leak s/p laminectomy 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 Dilaudid 1mg Q4H PRN, Oxycodone 10mg PO Q6H Monitor Neurosurgeon - contacted Continue antibiotics per ID Flexeril 10mg PO daily #Prophylaxis DVT: Bilateral SCDs GI: Pantoprazole #FEN [place] oral fluids as tolerated Monitor electrolytes #Dispo Per ICU- for transfer to Med Surg Visit type - Emergency Visit Emergency Visit: Yes ED Registration Date: 06/13/17 Care time: The patient presented to the Emergency Department on the above date and was hospitalized for further evaluation of their emergent condition. - New Patient This patient is new to me today: No - Critical Care Critical Care patient: Yes Total Critical Care Time (in minutes): 40 Critical Care Statement: The care of this patient involved high complexity decision making to prevent further life threatening deterioration of the patient 's condition and/or to evaluate & treat vital organ system(s) failure or risk of failure. - Discharge Referral Referred to [facility] Med P.C.: No
[2017-06-15] MEDS ORDERED: PT OWN MED DRAWER 7, Y5N ONE ×2 (10:58→19:58)
[2017-06-15] MEDS: MUPIROCIN 2% TOPICAL OINTMENT FOR DECOLONIZATION NS SCH ×2 (11:37→21:26)
--- NOTE | 2017-06-15 12:03 | PN ---
Teaching Attending Note Name of Resident: Noreen Moreno ATTENDING PHYSICIAN STATEMENT I saw and evaluated the patient. I reviewed the resident's note and discussed the case with the resident. I agree with the resident's findings and plan as documented. SUBJECTIVE: Patient seen and examined in the ICU. Persistent WILBURN and neck discomfort. Low grade temperature noted. No CP or SOB. Intake & Output 06/12/17 06/13/17 06/14/17 06/15/17 23:59 23:59 23:59 23:59 Intake Total 1600 1290 3440 537.5 Output Total 90 540 25 Balance 2720 217 3321 537.5 Weight 220 lb 7.396 oz 220 lb 7.396 oz Last Vital Signs Temp Pulse Resp BP Pulse Ox 99.4 F 68 18 120/79 95 06/15/17 10:00 06/15/17 10:42 06/15/17 10:42 06/15/17 10:42 06/14/17 20:49 Active Medications Chlorhexidine Gluconate (Hibiclens For Decolonization -) 1 applic TP HS [facility] Chlorpromazine HCl (Thorazine Injection -) 25 mg IM Q6H PRN PRN Reason: NAUSEA AND/OR VOMITING Heparin Sodium (Porcine) (Heparin -) 5,000 unit SQ BID [facility] Last Admin: 06/15/17 09:37 Dose: 5,000 unit Hydromorphone HCl (Dilaudid Injection -) 1 mg IVPUSH Q4H PRN PRN Reason: PAIN Last Admin: 06/15/17 10:29 Dose: 1 mg Lactated Ringer's (Lactated Ringers Solution) 1,000 mls @ 75 mls/hr IV ASDIR [facility] Last Admin: 06/14/17 22:33 Dose: Not Given Vancomycin HCl 1,250 mg/ (Dextrose) 250 mls @ 166.667 mls/hr IVPB DAILY [facility] PRN Reason: Protocol Last Admin: 06/15/17 09:38 Dose: 166.667 mls/hr Piperacillin Sod/Tazobactam Sod (Zosyn 3.375gm Ivpb (Pre-Docked)) 50 mls @ 100 mls/hr IVPB Q8H-IV [facility]EE[facility] PRN Reason: Protocol Last Admin: 06/15/17 09:38 Dose: 100 mls/hr Mupirocin (Bactroban Ointment (For Decolonization) -) 1 applic NS BID [facility] Stop: 06/18/17 21:59 Last Admin: 06/15/17 11:37 Dose: 1 applic Oxycodone HCl (Roxicodone -) 10 mg PO Q6H PRN PRN Reason: PAIN Last Admin: 06/15/17 08:34 Dose: 10 mg Pantoprazole Sodium (Protonix -) 40 mg PO DAILY [facility] Last Admin: 06/15/17 09:37 Dose: 40 mg Gen: NAD at rest Neck: serosanguinous drainage from SILVER Heart: RRR Lung: clear to auscultation Abd: soft, nontender Ext: no edema Laboratory Results - last 24 hr 06/15/17 06/15/17 05:30 05:30 WBC 8.1 RBC 4.27 Hgb 12.7 Hct 37.4 MCV 87.5 MCH 29.6 MCHC 33.8 RDW 13.2 Plt Count 247 MPV 7.3 L Neutrophils % 65.7 Lymphocytes % 20.5 Monocytes % 12.8 H Eosinophils % 0.4 Basophils % 0.6 Sodium 136 Potassium 3.6 Chloride 102 Carbon Dioxide 27 Anion Gap 7 L BUN 4 L D Creatinine 0.9 D Random Glucose 98 D Calcium 8.1 L Phosphorus 3.3 Magnesium 1.7 L ASSESSMENT AND PLAN: Recent Lumbar Laminectomy CSF Leak s/p Pseudomeningocele Repair/Washout Do not suspect Meningitis - pain control - Add flexeril - Antibiotics per ID : Patient has (+) MSSA - monitor drain output - PO as tolerated - DVT prophylaxis - Floor if OK with Neurosurgery Dr Jerry
[2017-06-15] MEDS: CYCLOBENZAPRINE HCL 10 MG TABLET (FP) PO SCH (12:38)
--- NOTE | 2017-06-15 14:35 | PATH ---
Surgical Pathology Report Patient Name: RANDALL COLEMAN [facility]. Rec. #: [id number] /Age/Gender: 1975 (Age: 41) / M Account: [id number] Location: ICU MEDICAL LOGISTICS SPECIALIST Taken: 06/14/2017 Received: 06/14/2017 Reported: 06/15/2017 Physicians: Tato Beck M.D. Specimen(s) Received A: BX DUODENUM B: BX ANTRUM AND BODY C: BX OF FUNDUS D: BX GE JUNCTION E: BX DISTAL ESOPHAGUS Clinical History Benítez's esophagus Esophagitis, fundic ulcer Final Diagnosis A. DUODENUM, SECOND PORTION, BIOPSY: DUODENAL MUCOSA WITHOUT SIGNIFICANT PATHOLOGIC CHANGES. NO HISTOLOGIC EVIDENCE OF GLUTEN SENSITIVE ENTEROPATHY (CELIAC DISEASE). B. STOMACH, ANTRUM AND BODY, BIOPSY: GASTRIC ANTRAL AND OXYNTIC MUCOSA WITH MILD CHRONIC GASTRITIS. IMMUNOSTAIN FOR H. PYLORI IS NEGATIVE FOR ORGANISMS. C. STOMACH, FUNDIC ULCER, BIOPSY: ULCERATED GASTRIC OXYNTIC MUCOSA WITH ASSOCIATED ACTIVE INFLAMMATION AND MODERATE CHRONIC GASTRITIS. IMMUNOSTAIN FOR H. PYLORI IS NEGATIVE FOR ORGANISMS. D. GE JUNCTION, BIOPSY: SQUAMOCOLUMNAR JUNCTIONAL MUCOSA WITH CHRONIC INFLAMMATION, REFLUX TYPE CHANGES AND INTESTINAL METAPLASIA (CONSISTENT WITH BENÍTEZ'S ESOPHAGUS). NEGATIVE FOR DYSPLASIA. E. DISTAL ESOPHAGUS, BIOPSY: ULCERATED SQUAMOUS EPITHELIUM WITH ASSOCIATED MARKED ACTIVE CHRONIC INFLAMMATION AND REFLUX CHANGES. NO COLUMNAR EPITHELIUM PRESENT. NO HISTOLOGIC EVIDENCE OF VIRAL CYTOPATHIC EFFECT. NO FUNGAL ORGANISMS IDENTIFIED WITH PAS STAIN. Electronically Signed Nicholas Guerra M.D. Gross Description A. Received in formalin, labeled "biopsy second portion of duodenum" are 2 mena, irregular portions of soft tissue measuring 0.2-0.3 cm in greatest dimension. The specimens are submitted in toto in one cassette. B. Received in formalin, labeled "biopsy antrum and body" are 2 mena, irregular portions of soft tissue measuring 0.2-0.4 cm in greatest dimension. The specimens are submitted in toto in one cassette. C. Received in formalin, labeled "biopsy fundic ulcer" is a mena, irregular portion of soft tissue measuring 0.3 cm in greatest dimension. The specimen is submitted in toto in one cassette. D. Received in formalin, labeled "biopsy GE junction" are 3 mena, irregular portions of soft tissue measuring 0.2-0.3 cm in greatest dimension. The specimens are submitted in toto in one cassette. E. Received in formalin, labeled "biopsy distal esophagus" is a mena, irregular portion of soft tissue measuring 0.5 cm in greatest dimension. The specimen is submitted in toto in one cassette. [facility]/06/14/2017 [facility]/06/14/2017
--- NOTE | 2017-06-15 14:50 | PN ---
Progress Note (short form) - Note Progress Note: Pt with complaints of headache, nausea and poor appeitite. His neck/head hurts with movement. These symtoms started yesterday with slight improvement today. Vital Signs Period Temp Pulse Resp BP Sys/Silva Pulse Ox Last 24 Hr 99.2 F-100.2 F 59-98 18-20 100-142/58-97 95 GEN: A&0x3, appears somewhat uncomfortable Back: dressing changed. Inc c/d/i with steri-strips. No masses seen, no drainage to wound or erythema. dressing with dime sized drainage on gauze. LE: some weakness 4/5 with left dorsi flexion. CBC, BMP 06/15/17 05:30 06/15/17 05:30 Microbiology 06/13/17 00:17 Back Gram Stain - Final 06/13/17 00:17 Back Wound Culture - Preliminary Staphylococcus Aureus 06/12/17 21:35 Blood - Peripheral Venous Blood Culture - Preliminary NO GROWTH OBTAINED AFTER 48 HOURS, INCUBATION TO CONTINUE FOR 3 DAYS. 06/12/17 21:35 Blood - Peripheral Venous Blood Culture - Preliminary NO GROWTH OBTAINED AFTER 48 HOURS, INCUBATION TO CONTINUE FOR 3 DAYS. A/P: 41 yo male s/p Wound exploration, power irrigation with antibiotics Case D.w Dr. Jerry, pt with signs of meningeal irritation. He has had a low grade temp x1 but overall no leukcytosis. Cultures to date from wound-MSSA being treated with Vanco/zosyn. Blood cultures are negative to date. Recommend to continue ICU observation and current treatment plan. Treatment with IV steroids could be considered if his clinic presentation requires such, but at the present time would like to hold off to allow for wound healing. His drains will remain until next week, the incision should be covered at all times. <Yojana Branham - Last Filed: 06/15/17 14:51> - Note Progress Note: Agree with above ANALYSIS ANALYST and aggressive pain control continue SILVER drainage GI/DVT prophylaxis Physical therapy Continue antibiotics continue ICU observation for now <Martínez Jerry - Last Filed: 06/15/17 19:21>
[2017-06-15] MEDS: ACETAMINOPHEN/CAFFEINE/BUTALBITAL 1 TAB PO PRN ×2 (15:40→21:25)
--- NOTE | 2017-06-15 17:31 | PN ---
Progress Note, Physician History of Present Illness: patient doing much better headache has improved feels better - Current Medication List Current Medications: Active Medications Acetaminophen/Butalbital/Caffeine (Fioricet -) 1 tablet PO Q6H PRN PRN Reason: FEVER OR PAIN Last Admin: 06/15/17 15:40 Dose: 1 tablet Chlorhexidine Gluconate (Hibiclens For Decolonization -) 1 applic TP HS [facility] Chlorpromazine HCl (Thorazine Injection -) 25 mg IM Q6H PRN PRN Reason: NAUSEA AND/OR VOMITING Cyclobenzaprine HCl (Flexeril -) 10 mg PO DAILY [facility] Last Admin: 06/15/17 12:38 Dose: 10 mg Heparin Sodium (Porcine) (Heparin -) 5,000 unit SQ BID [facility] Last Admin: 06/15/17 09:37 Dose: 5,000 unit Hydromorphone HCl (Dilaudid Injection -) 1 mg IVPUSH Q4H PRN PRN Reason: PAIN Last Admin: 06/15/17 10:29 Dose: 1 mg Lactated Ringer's (Lactated Ringers Solution) 1,000 mls @ 75 mls/hr IV ASDIR [facility] Last Admin: 06/14/17 22:33 Dose: Not Given Vancomycin HCl 1,250 mg/ (Dextrose) 250 mls @ 166.667 mls/hr IVPB DAILY [facility] PRN Reason: Protocol Last Admin: 06/15/17 09:38 Dose: 166.667 mls/hr Piperacillin Sod/Tazobactam Sod (Zosyn 3.375gm Ivpb (Pre-Docked)) 50 mls @ 100 mls/hr IVPB Q8H-IV [facility] PRN Reason: Protocol Last Admin: 06/15/17 17:24 Dose: 100 mls/hr Mupirocin (Bactroban Ointment (For Decolonization) -) 1 applic NS BID [facility] Stop: 06/18/17 21:59 Last Admin: 06/15/17 11:37 Dose: 1 applic Oxycodone HCl (Roxicodone -) 10 mg PO Q6H PRN PRN Reason: PAIN Last Admin: 06/15/17 14:23 Dose: 10 mg Pantoprazole Sodium (Protonix -) 40 mg PO DAILY [facility] Last Admin: 06/15/17 09:37 Dose: 40 mg - Objective Vital Signs: Vital Signs Temperature 98.9 F 06/15/17 17:25 Pulse Rate 72 06/15/17 17:25 Respiratory Rate 18 06/15/17 17:25 Blood Pressure 117/76 06/15/17 17:25 O2 Sat by Pulse Oximetry (%) 95 06/14/17 20:49 Constitutional: Yes: Calm, Mild Distress Cardiovascular: Yes: Regular Rate and Rhythm Respiratory: Yes: Regular, CTA Bilaterally Gastrointestinal: Yes: Normal Bowel Sounds, Soft Musculoskeletal: Yes: WNL Extremities: Yes: WNL Wound/Incision: Yes: Dressing Dry and Intact, Other (drainage in place) Neurological: Yes: Alert, Oriented Psychiatric: Yes: Alert, Oriented Labs: CBC, BMP 06/15/17 05:30 06/15/17 05:30 INR, PTT INR 1.40 (0.82-1.09) H 06/12/17 21:13 Assessment/Plan patient post op from wound infection, and pseudomenigocele now in the icu, stable Recent Lumbar Laminectomy CSF Leak s/p Pseudomeningocele Repair/Washout wound infection msa and gm negative wound infection i have seen the cx report i am still waiting for the gm negative organism to be identified plan will stop vanco will contiue zosyn will await for gm negative cx report from the wound based on that will adjust abx monitor drainage rest as per neurosurgery cc time 40 min
[2017-06-15] MEDS: LACTATED RINGERS SOLUTION 1,000 ML IV SCH (18:41)
[2017-06-15] MEDS: chlorproMAZINE HCL 25 MG/1 ML AMP IM PRN (19:59)
[2017-06-15] MEDS: CHLORHEXIDINE GLUCONATE 4% CLEANSER FOR DECOLONIZATION TP SCH (21:25)
--- NOTE | 2017-06-15 21:26 | PN ---
Teaching Attending Note Name of Resident: Nakita Haynes ATTENDING PHYSICIAN STATEMENT I saw and evaluated the patient. I reviewed the resident's note and discussed the case with the resident. I agree with the resident's findings and plan as documented. SUBJECTIVE: Patient continues to have headache, is at bedside. OBJECTIVE: Vital Signs Temperature 98.9 F 06/15/17 17:25 Pulse Rate 78 06/15/17 20:00 Respiratory Rate 18 06/15/17 20:00 Blood Pressure 123/58 06/15/17 20:00 O2 Sat by Pulse Oximetry (%) 95 06/15/17 20:20 CBCD WBC 8.1 K/mm3 (4.0-10.0) 06/15/17 05:30 RBC 4.27 M/mm3 (4.00-5.60) 06/15/17 05:30 Hgb 12.7 GM/dL (11.7-16.9) 06/15/17 05:30 Hct 37.4 % (35.4-49) 06/15/17 05:30 MCV 87.5 fl (80-96) 06/15/17 05:30 MCHC 33.8 g/dl (32.0-35.9) 06/15/17 05:30 RDW 13.2 % (11.9-15.9) 06/15/17 05:30 Plt Count 247 K/MM3 (134-434) 06/15/17 05:30 MPV 7.3 fl (7.5-11.1) L 06/15/17 05:30 CMP Sodium 136 mmol/L (136-145) 06/15/17 05:30 Potassium 3.6 mmol/L (3.5-5.1) 06/15/17 05:30 Chloride 102 mmol/L (98-107) 06/15/17 05:30 Carbon Dioxide 27 mmol/L (21-32) 06/15/17 05:30 Anion Gap 7 (8-16) L 06/15/17 05:30 BUN 4 mg/dL (7-18) L D 06/15/17 05:30 Creatinine 0.9 mg/dL (0.7-1.3) D 06/15/17 05:30 Creat Clearance w eGFR > 60 (>60) 06/14/17 05:10 Random Glucose 98 mg/dL (74-106) D 06/15/17 05:30 Calcium 8.1 mg/dL (8.5-10.1) L 06/15/17 05:30 Total Bilirubin 0.4 mg/dL (0.2-1.0) D 06/14/17 05:10 AST 13 U/L (15-37) L D 06/14/17 05:10 ALT 23 U/L (12-78) D 06/14/17 05:10 Alkaline Phosphatase 43 U/L (45-117) L 06/14/17 05:10 Total Protein 5.2 g/dl (6.4-8.2) L 06/14/17 05:10 Albumin 2.4 g/dl (3.4-5.0) L 06/14/17 05:10 CARDIAC ENZYMES Creatine Kinase 258 IU/L (39-308) 06/13/17 17:00 Troponin I < 0.02 ng/ml (0.00-0.05) 06/13/17 17:00 Current Medications Generic Name Dose Route Start Last Admin Trade Name Freq PRN Reason Stop Dose Admin Acetaminophen/Butalbital/Caffeine 1 tablet 06/15/17 15:32 06/15/17 21:25 Fioricet - PO 1 tablet Q6H PRN Administration FEVER OR PAIN Chlorhexidine Gluconate 1 applic 06/15/17 22:00 06/15/17 21:25 Hibiclens For Decolonization - TP 1 applic HS [facility] Administration Chlorpromazine HCl 25 mg 06/15/17 08:01 06/15/17 19:59 Thorazine Injection - IM 25 mg Q6H PRN Administration NAUSEA AND/OR VOMITING Cyclobenzaprine HCl 10 mg 06/15/17 12:15 06/15/17 12:38 Flexeril - PO 10 mg DAILY [facility] Administration Heparin Sodium (Porcine) 5,000 unit 06/15/17 10:00 06/15/17 21:25 Heparin - SQ 5,000 unit BID [facility] Administration Hydromorphone HCl 1 mg 06/15/17 08:01 06/15/17 19:53 Dilaudid Injection - IVPUSH 1 mg Q4H PRN Administration PAIN Lactated Ringer's 1,000 mls @ 75 mls/hr 06/14/17 18:00 06/15/17 18:41 Lactated Ringers Solution IV 75 mls/hr ASDIR [facility]EE[facility] Administration Piperacillin Sod/Tazobactam Sod 50 mls @ 100 mls/hr 06/15/17 10:00 06/15/17 17: 24 Zosyn 3.375gm Ivpb (Pre-Docked) IVPB 100 mls/hr Q8H-IV [facility] Administration Protocol Mupirocin 1 applic 06/15/17 10:00 06/15/17 21:26 Bactroban Ointment (For Decolonization) - NS 06/18/17 21:59 1 applic BID [facility] Administration Oxycodone HCl 10 mg 06/14/17 10:59 06/15/17 14:23 Roxicodone - PO 10 mg Q6H PRN Administration PAIN Pantoprazole Sodium 40 mg 06/15/17 10:00 06/15/17 09:37 Protonix - PO 40 mg DAILY [facility] Administration Home Medications Medication Instructions Recorded Oxycodone HCl [Roxicodone -] 10 mg PO Q6H PRN #30 tablet MDD 3 05/30/17 PE:per resident's note 2 SILVER drainage from his back , right less drainage than the left. ASSESSMENT AND PLAN: Patient is a 41 yr old man with recent admission 2 weeks ago under 's service for lumbar laminectomy, today presented post-op wound infection, and pseudomeningocele. s/p Pseudomeningocele Repair/Washout wound infection # POD #4 s/p Psuedomeningocele repair and washout by Neurosurgeon. further management as per surgeon # Headache continues, increased the pain medication and flexeril given # S/p sepsis due to lumbar wound infection s/p wash out ,Antibiotic management as per ID on Zosyn IV continue # s/p EGD by Dr. Mccormack GI; no evidence of Atkinson's esophagus a per report s/p hiccups on thorazine inj. helping his hiccups. as per GI EGD report no evidence of Harry's esophagus, 3 small non bleeding ulcer in the gastric fundus. Follow with post discharge from the hospital , Nexium was recommended. DVT Px: SCDs
[2017-06-16] MEDS: PIPERACILLIN/TAZOB 3.375 GM 50 ML IVPB SCH ×3 (02:50→17:09)
[2017-06-16] MEDS: oxyCODONE HCL 5 MG TABLET PO PRN ×3 (03:09→19:28)
[2017-06-16] MEDS: ACETAMINOPHEN/CAFFEINE/BUTALBITAL 1 TAB PO PRN ×3 (04:57→17:08)
[2017-06-16 05:52] LABS: BASOPHIL 0.8 % (0-2.0); EOSINOPHIL 3.5 % (0-4.5); MCH 30.3 pg (25.7-33.7); MCHC 34.3 g/dl (32.0-35.9); MEAN CELL VOLUME 88.4 fl (80-96); MEAN PLT VOLUME 7.6 fl (7.5-11.1); NEUTROPHILS 55.6 % (42.8-82.8); PLATELET COUNT 272 K/MM3 (134-434); WHITE BLOOD COUNT 6.5 K/mm3 (4.0-10.0)
[2017-06-16 06:15] LABS: ALBUMIN 2.5 g/dl (3.4-5.0); ANION GAP 10 (8-16); CALCIUM 7.8 mg/dL (8.5-10.1); CO2 25 mmol/L (21-32); CREATININE 0.9 mg/dL (0.7-1.3); GLUCOSE,RANDOM 109 mg/dL (74-106); PHOSPHOROUS 2.9 mg/dL (2.5-4.9); SGOT/AST 13 U/L (15-37); SGPT/ALT 23 U/L (12-78)
[2017-06-16 06:16] LABS: ALK PHOS 45 U/L (45-117); BILIRUBIN,TOTAL 0.4 mg/dL (0.2-1.0); TOT PROT 5.5 g/dl (6.4-8.2)
[2017-06-16] MEDS: HYDROmorphone HCL CARPU-JECT 1 MG/1 ML DISP.SYRIN IVPUSH PRN ×3 (06:54→17:07)
[2017-06-16] MEDS ORDERED: PT OWN MED DRAWER 7, Y5N ONE (10:18)
[2017-06-16] MEDS: HEPARIN NA (PORCINE) 5,000 UNITS/ML 1ML VIAL SQ SCH ×2 (10:22→21:40)
[2017-06-16] MEDS: PANTOPRAZOLE 40 MG TABLET (FP) PO SCH (10:22)
[2017-06-16] MEDS: MUPIROCIN 2% TOPICAL OINTMENT FOR DECOLONIZATION NS SCH ×2 (10:22→21:40)
[2017-06-16] MEDS: CYCLOBENZAPRINE HCL 10 MG TABLET (FP) PO SCH (10:22)
--- NOTE | 2017-06-16 11:26 | PN ---
Physical Exam: SUBJECTIVE: Patient seen and examined Patient's headache is better on Fioricet and was able to eat breakfast. is at bedside. OBJECTIVE: Vital Signs Temperature 99.0 F 06/16/17 10:00 Pulse Rate 62 06/16/17 10:00 Respiratory Rate 19 06/16/17 10:00 Blood Pressure 124/81 06/16/17 10:00 O2 Sat by Pulse Oximetry (%) 95 06/15/17 20:20 GENERAL: The patient is awake, alert, and fully oriented, comfortable at this time . HEAD: able to move without any difficulty EYES: PERRL, extraocular movements intact, sclera anicteric, conjunctiva clear. ENT: Ears normal, oropharynx clear without exudates, moist mucous membranes. NECK: supple. LUNGS: Breath sounds equal, clear to auscultation bilaterally, no wheezes, no crackles, no accessory muscle use. HEART: Regular rate and rhythm, S1, S2 without murmur, rub or gallop. ABDOMEN: Soft, nontender, nondistended, normoactive bowel sounds, no guarding, no rebound. EXTREMITIES: 2+ pulses, warm, well-perfused, no edema. able to move all extremities. NEUROLOGICAL: Cranial nerves II through XII grossly intact. Normal speech. 2 SILVER drainage continues PSYCH: Normal mood, normal affect. SKIN: Warm, dry, normal turgor, no rashes or lesions noted CBCD WBC 6.5 K/mm3 (4.0-10.0) 06/16/17 05:00 RBC 4.26 M/mm3 (4.00-5.60) 06/16/17 05:00 Hgb 12.9 GM/dL (11.7-16.9) 06/16/17 05:00 Hct 37.7 % (35.4-49) 06/16/17 05:00 MCV 88.4 fl (80-96) 06/16/17 05:00 MCHC 34.3 g/dl (32.0-35.9) 06/16/17 05:00 RDW 13.0 % (11.9-15.9) 06/16/17 05:00 Plt Count 272 K/MM3 (134-434) 06/16/17 05:00 MPV 7.6 fl (7.5-11.1) 06/16/17 05:00 CMP Sodium 140 mmol/L (136-145) 06/16/17 05:00 Potassium 3.4 mmol/L (3.5-5.1) L 06/16/17 05:00 Chloride 105 mmol/L (98-107) 06/16/17 05:00 Carbon Dioxide 25 mmol/L (21-32) 06/16/17 05:00 Anion Gap 10 (8-16) 06/16/17 05:00 BUN 7 mg/dL (7-18) D 06/16/17 05:00 Creatinine 0.9 mg/dL (0.7-1.3) 06/16/17 05:00 Creat Clearance w eGFR > 60 (>60) 06/16/17 05:00 Random Glucose 109 mg/dL (74-106) H 06/16/17 05:00 Calcium 7.8 mg/dL (8.5-10.1) L 06/16/17 05:00 Total Bilirubin 0.4 mg/dL (0.2-1.0) 06/16/17 05:00 AST 13 U/L (15-37) L 06/16/17 05:00 ALT 23 U/L (12-78) 06/16/17 05:00 Alkaline Phosphatase 45 U/L (45-117) 06/16/17 05:00 Total Protein 5.5 g/dl (6.4-8.2) L 06/16/17 05:00 Albumin 2.5 g/dl (3.4-5.0) L 06/16/17 05:00 CARDIAC ENZYMES Creatine Kinase 258 IU/L (39-308) 06/13/17 17:00 Troponin I < 0.02 ng/ml (0.00-0.05) 06/13/17 17:00 Active Medications Generic Name Dose Route Start Last Admin Trade Name Freq PRN Reason Stop Dose Admin Acetaminophen/Butalbital/Caffeine 1 tablet 06/15/17 15:32 06/16/17 11:06 Fioricet - PO 1 tablet Q6H PRN Administration FEVER OR PAIN Chlorhexidine Gluconate 1 applic 06/15/17 22:00 06/15/17 21:25 Hibiclens For Decolonization - TP 1 applic HS LEENA Administration Chlorpromazine HCl 25 mg 06/15/17 08:01 06/15/17 19:59 Thorazine Injection - IM 25 mg Q6H PRN Administration NAUSEA AND/OR VOMITING Cyclobenzaprine HCl 10 mg 06/15/17 12:15 06/16/17 10:22 Flexeril - PO 10 mg DAILY LEENA Administration Heparin Sodium (Porcine) 5,000 unit 06/15/17 10:00 06/16/17 10:22 Heparin - SQ 5,000 unit BID LEENA Administration Hydromorphone HCl 1 mg 06/15/17 08:01 06/16/17 11:05 Dilaudid Injection - IVPUSH 1 mg Q4H PRN Administration PAIN Lactated Ringer's 1,000 mls @ 75 mls/hr 06/14/17 18:00 06/15/17 18:41 Lactated Ringers Solution IV 75 mls/hr ASDIR LEENA Administration Piperacillin Sod/Tazobactam Sod 50 mls @ 100 mls/hr 06/15/17 10:00 06/16/17 10: 21 Zosyn 3.375gm Ivpb (Pre-Docked) IVPB 100 mls/hr Q8H-IV LEENA Administration Protocol Mupirocin 1 applic 06/15/17 10:00 06/16/17 10:22 Bactroban Ointment (For Decolonization) - NS 06/18/17 21:59 1 applic BID LEENA Administration Oxycodone HCl 10 mg 06/14/17 10:59 06/16/17 03:09 Roxicodone - PO 10 mg Q6H PRN Administration PAIN Pantoprazole Sodium 40 mg 06/15/17 10:00 06/16/17 10:22 Protonix - PO 40 mg DAILY LEENA Administration Home Medications Medication Instructions Recorded Oxycodone HCl [Roxicodone -] 10 mg PO Q6H PRN #30 tablet MDD 3 05/30/17 Microbiology 06/12/17 21:22 Abscess Gram Stain - Final 06/12/17 21:22 Abscess Wound Culture - Preliminary Pseudomonas Aeruginosa Staphylococcus Aureus 06/12/17 21:35 Blood - Peripheral Venous Blood Culture - Preliminary NO GROWTH OBTAINED AFTER 72 HOURS, INCUBATION TO CONTINUE FOR 2 DAYS. 06/12/17 21:35 Blood - Peripheral Venous Blood Culture - Preliminary NO GROWTH OBTAINED AFTER 72 HOURS, INCUBATION TO CONTINUE FOR 2 DAYS. 06/13/17 00:17 Back Gram Stain - Final 06/13/17 00:17 Back Wound Culture - Final Staphylococcus Aureus 06/13/17 11:29 Urine - Urine Clean Catch Urine Culture - Final NO GROWTH OBTAINED ASSESSMENT/PLAN: Patient is a 41 yr old man with recent admission 2 weeks ago under 's service for lumbar laminectomy, today presented post-op wound infection, and pseudomeningocele. s/p Pseudomeningocele Repair/Washout wound infection # POD #5 s/p Psuedomeningocele repair and washout by Neurosurgeon. further management as per surgeon # Headache continues, ncreased the pain medication and given a dose of fioricet which relieved his headache. # S/p sepsis due to lumbar wound infection s/p wash out ,Antibiotic management as per ID on Zosyn IV continue # s/p EGD by Dr. Mccormack GI; no evidence of Atkinson's esophagus ,s/p hiccups s/p thorazine inj. as per GI EGD report no evidence of Harry's esophagus, 3 small non bleeding ulcer in the gastric fundus. Follow with Kiran Wilcox post discharge from the hospital , Nexium was recommended. Protonix 40mg in the hospital since Nexium is nonformulary. DVT Px: SCDs Visit type - Emergency Visit Emergency Visit: Yes ED Registration Date: 06/13/17 Care time: The patient presented to the Emergency Department on the above date and was hospitalized for further evaluation of their emergent condition. - New Patient This patient is new to me today: No - Critical Care Critical Care patient: No
--- NOTE | 2017-06-16 12:24 | PN ---
Progress Note (short form) - Note Progress Note: PULM/CCM Pt seen and examined in ICU SUBJECTIVE: -stable, awaiting floor bed Active Medications Acetaminophen/Butalbital/Caffeine (Fioricet -) 1 tablet PO Q6H PRN PRN Reason: FEVER OR PAIN Last Admin: 06/16/17 11:06 Dose: 1 tablet Chlorhexidine Gluconate (Hibiclens For Decolonization -) 1 applic TP HS [facility] Last Admin: 06/15/17 21:25 Dose: 1 applic Chlorpromazine HCl (Thorazine Injection -) 25 mg IM Q6H PRN PRN Reason: NAUSEA AND/OR VOMITING Last Admin: 06/15/17 19:59 Dose: 25 mg Cyclobenzaprine HCl (Flexeril -) 10 mg PO DAILY [facility] Last Admin: 06/16/17 10:22 Dose: 10 mg Heparin Sodium (Porcine) (Heparin -) 5,000 unit SQ BID [facility] Last Admin: 06/16/17 10:22 Dose: 5,000 unit Hydromorphone HCl (Dilaudid Injection -) 1 mg IVPUSH Q4H PRN PRN Reason: PAIN Last Admin: 06/16/17 11:05 Dose: 1 mg Lactated Ringer's (Lactated Ringers Solution) 1,000 mls @ 75 mls/hr IV ASDIR [facility] Last Admin: 06/15/17 18:41 Dose: 75 mls/hr Piperacillin Sod/Tazobactam Sod (Zosyn 3.375gm Ivpb (Pre-Docked)) 50 mls @ 100 mls/hr IVPB Q8H-IV LEENA PRN Reason: Protocol Last Admin: 06/16/17 10:21 Dose: 100 mls/hr Mupirocin (Bactroban Ointment (For Decolonization) -) 1 applic NS BID [facility] Stop: 06/18/17 21:59 Last Admin: 06/16/17 10:22 Dose: 1 applic Oxycodone HCl (Roxicodone -) 10 mg PO Q6H PRN PRN Reason: PAIN Last Admin: 06/16/17 03:09 Dose: 10 mg Pantoprazole Sodium (Protonix -) 40 mg PO DAILY [facility] Last Admin: 06/16/17 10:22 Dose: 40 mg Gen: NAD at rest, sleeping Neck: minimal serosanguinous drainage from SILVER Heart: RRR Lung: clear to auscultation, no distress Abd: soft, nontender Ext: no edema CBCD WBC 6.5 K/mm3 (4.0-10.0) 06/16/17 05:00 RBC 4.26 M/mm3 (4.00-5.60) 06/16/17 05:00 Hgb 12.9 GM/dL (11.7-16.9) 06/16/17 05:00 Hct 37.7 % (35.4-49) 06/16/17 05:00 MCV 88.4 fl (80-96) 06/16/17 05:00 MCHC 34.3 g/dl (32.0-35.9) 06/16/17 05:00 RDW 13.0 % (11.9-15.9) 06/16/17 05:00 Plt Count 272 K/MM3 (134-434) 06/16/17 05:00 MPV 7.6 fl (7.5-11.1) 06/16/17 05:00 CMP Sodium 140 mmol/L (136-145) 06/16/17 05:00 Potassium 3.4 mmol/L (3.5-5.1) L 06/16/17 05:00 Chloride 105 mmol/L (98-107) 06/16/17 05:00 Carbon Dioxide 25 mmol/L (21-32) 06/16/17 05:00 Anion Gap 10 (8-16) 06/16/17 05:00 BUN 7 mg/dL (7-18) D 06/16/17 05:00 Creatinine 0.9 mg/dL (0.7-1.3) 06/16/17 05:00 Creat Clearance w eGFR > 60 (>60) 06/16/17 05:00 Calcium 7.8 mg/dL (8.5-10.1) L 06/16/17 05:00 Total Bilirubin 0.4 mg/dL (0.2-1.0) 06/16/17 05:00 AST 13 U/L (15-37) L 06/16/17 05:00 ALT 23 U/L (12-78) 06/16/17 05:00 Alkaline Phosphatase 45 U/L (45-117) 06/16/17 05:00 Total Protein 5.5 g/dl (6.4-8.2) L 06/16/17 05:00 Albumin 2.5 g/dl (3.4-5.0) L 06/16/17 05:00 ASSESSMENT AND PLAN: Recent Lumbar Laminectomy CSF Leak s/p Pseudomeningocele Repair/Washout Do not suspect Meningitis - pain control - Add flexeril - Antibiotics per ID : Patient has (+) MSSA, could change to Nafcillin - monitor drain output - PO as tolerated - DVT prophylaxis - OK for Floor Nirmal Terrazas ACNP [id number]
--- NOTE | 2017-06-16 15:54 | PN ---
Progress Note, Physician History of Present Illness: Pt seen and examined. Chart, lab results reviewed. Events noted. Pt today states he feels better, less headache. Is afebrile, without chills. No other specific complaint. - Current Medication List Current Medications: Active Medications Acetaminophen/Butalbital/Caffeine (Fioricet -) 1 tablet PO Q6H PRN PRN Reason: FEVER OR PAIN Last Admin: 06/16/17 11:06 Dose: 1 tablet Chlorhexidine Gluconate (Hibiclens For Decolonization -) 1 applic TP HS [facility] Last Admin: 06/15/17 21:25 Dose: 1 applic Chlorpromazine HCl (Thorazine Injection -) 25 mg IM Q6H PRN PRN Reason: NAUSEA AND/OR VOMITING Last Admin: 06/15/17 19:59 Dose: 25 mg Cyclobenzaprine HCl (Flexeril -) 10 mg PO DAILY [facility] Last Admin: 06/16/17 10:22 Dose: 10 mg Heparin Sodium (Porcine) (Heparin -) 5,000 unit SQ BID [facility] Last Admin: 06/16/17 10:22 Dose: 5,000 unit Hydromorphone HCl (Dilaudid Injection -) 1 mg IVPUSH Q4H PRN PRN Reason: PAIN Last Admin: 06/16/17 11:05 Dose: 1 mg Lactated Ringer's (Lactated Ringers Solution) 1,000 mls @ 75 mls/hr IV ASDIR [facility] Last Admin: 06/15/17 18:41 Dose: 75 mls/hr Piperacillin Sod/Tazobactam Sod (Zosyn 3.375gm Ivpb (Pre-Docked)) 50 mls @ 100 mls/hr IVPB Q8H-IV LEENA PRN Reason: Protocol Last Admin: 06/16/17 10:21 Dose: 100 mls/hr Mupirocin (Bactroban Ointment (For Decolonization) -) 1 applic NS BID [facility] Stop: 06/18/17 21:59 Last Admin: 06/16/17 10:22 Dose: 1 applic Oxycodone HCl (Roxicodone -) 10 mg PO Q6H PRN PRN Reason: PAIN Last Admin: 06/16/17 12:44 Dose: 10 mg Pantoprazole Sodium (Protonix -) 40 mg PO DAILY [facility] Last Admin: 06/16/17 10:22 Dose: 40 mg - Objective Vital Signs: Vital Signs Temperature 98.3 F 06/16/17 14:27 Pulse Rate 82 06/16/17 14:00 Respiratory Rate 19 06/16/17 14:00 Blood Pressure 124/73 06/16/17 14:00 O2 Sat by Pulse Oximetry (%) 96 06/16/17 09:00 Constitutional: Yes: No Distress, Calm HENT: Yes: WNL Neck: Yes: Supple Cardiovascular: Yes: Regular Rate and Rhythm Respiratory: Yes: CTA Bilaterally Gastrointestinal: Yes: Normal Bowel Sounds, Soft Genitourinary: Yes: WNL Musculoskeletal: Yes: Other (no lower back spinal/paraspinal tenderness) Wound/Incision: Yes: Clean/Dry Neurological: Yes: Alert Labs: CBC, BMP 06/16/17 05:00 06/16/17 05:00 INR, PTT INR 1.40 (0.82-1.09) H 06/12/17 21:13 Microbiology 06/12/17 21:22 Abscess Gram Stain - Final 06/12/17 21:22 Abscess Wound Culture - Final Pseudomonas Aeruginosa Staphylococcus Aureus 06/12/17 21:35 Blood - Peripheral Venous Blood Culture - Preliminary NO GROWTH OBTAINED AFTER 72 HOURS, INCUBATION TO CONTINUE FOR 2 DAYS. 06/12/17 21:35 Blood - Peripheral Venous Blood Culture - Preliminary NO GROWTH OBTAINED AFTER 72 HOURS, INCUBATION TO CONTINUE FOR 2 DAYS. 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
[2017-06-16] MEDS: LACTATED RINGERS SOLUTION 1,000 ML IV SCH (16:01)
[2017-06-16] MEDS ORDERED: POTASSIUM CHLORIDE TABS 20 MEQ TABLET.ER (FP) PO ONE (18:13)
--- NOTE | 2017-06-16 20:52 | PN ---
Progress Note (short form) - Note Progress Note: Patient is now Post operative Day 3 from Lumbar wound washout. Incision is clean, dry, and intact. SILVER drains put out 20 & 35 cc over the past 24 hours. Patient with expected incisional pain and reports significant improvement in preoperative pain which he noted when ambulating today. Current pain medication regimen is affording him acceptable pain relief. He feels that the Flexaril isn't helping him and we will discontinue it. I feel that he can ambulate without the brace until the drains are removed on Sunday morning. I discussed with the patient that he will probably be transferred to a regular room on Sunday and discharged later this week. I prefer that he maintain a dry dressing (Aquacell if possible) over his skin clips. All questions were answered and we discussed my preference that his definitive stabilization procedure (fusion) be considered only after he is well healed from any infection. The patient expressed his gratitude for his care to date. The patient is having less hiccups and was able to eat 1/2 a plate of pasta. Overall, he looks better and has no fevers. He is not complaining of the headaches, photophobia or nuchal rigidity at this time.
[2017-06-16] MEDS: CHLORHEXIDINE GLUCONATE 4% CLEANSER FOR DECOLONIZATION TP SCH (21:45)
[2017-06-17] MEDS: HYDROmorphone HCL CARPU-JECT 1 MG/1 ML DISP.SYRIN IVPUSH PRN ×4 (00:42→21:18)
[2017-06-17] MEDS ORDERED: PT OWN MED DRAWER 7, Y5N ONE (01:46)
[2017-06-17] MEDS: oxyCODONE HCL 5 MG TABLET PO PRN ×4 (01:55→23:59)
[2017-06-17] MEDS: chlorproMAZINE HCL 25 MG/1 ML AMP IM PRN (01:56)
[2017-06-17] MEDS: PIPERACILLIN/TAZOB 3.375 GM 50 ML IVPB SCH ×2 (01:56→09:29)
[2017-06-17 06:13] LABS: MCH 30.3 pg (25.7-33.7); MCHC 34.1 g/dl (32.0-35.9); MEAN CELL VOLUME 88.9 fl (80-96); MEAN PLT VOLUME 7.8 fl (7.5-11.1); PLATELET COUNT 257 K/MM3 (134-434); RDW 13.2 % (11.9-15.9)
[2017-06-17 06:55] LABS: ALBUMIN 2.5 g/dl (3.4-5.0); ANION GAP 7 (8-16); CO2 27 mmol/L (21-32); GLUCOSE,RANDOM 100 mg/dL (74-106)
[2017-06-17 06:58] LABS: ALK PHOS 49 U/L (45-117); BILIRUBIN,TOTAL 0.3 mg/dL (0.2-1.0); CREATININE 0.8 mg/dL (0.7-1.3); SGOT/AST 27 U/L (15-37); SGPT/ALT 43 U/L (12-78); TOT PROT 5.7 g/dl (6.4-8.2)
[2017-06-17] MEDS: HEPARIN NA (PORCINE) 5,000 UNITS/ML 1ML VIAL SQ SCH ×2 (09:29→21:18)
[2017-06-17] MEDS: PANTOPRAZOLE 40 MG TABLET (FP) PO SCH (09:29)
[2017-06-17] MEDS: MUPIROCIN 2% TOPICAL OINTMENT FOR DECOLONIZATION NS SCH (09:30)
[2017-06-17] MEDS: ACETAMINOPHEN/CAFFEINE/BUTALBITAL 1 TAB PO PRN ×2 (09:41→18:03)
--- NOTE | 2017-06-17 10:39 | PN ---
Progress Note, Physician Chief Complaint: Remianed afebrile, lower back pain improving c/o Le tingling and numbness History of Present Illness: 41 yrs old man H/O Lumbar around 2 months ago s/p epidural injection one week developed symptoms of a CSF leak and pseudomeningocele was presented to the [facility] ER with severe radicular pain underwent revision and repair of the pseudomeningocele with discectomy at L34, L45 and L5S1. Considering clinical suspicion CSF gram satin and culture was done a showed no evidence of infection , patient presented to Neurosurgeon received PO Keflex subsequently developed fever large clear fluid and purulent material in the Ed spiked 101 101 and has a WBC of 15.9 wound wash grew MSSA and Pseudomonas iproving n IV abx. - Current Medication List Current Medications: Active Medications Acetaminophen/Butalbital/Caffeine (Fioricet -) 1 tablet PO Q6H PRN PRN Reason: FEVER OR PAIN Last Admin: 06/17/17 09:41 Dose: 1 tablet Chlorhexidine Gluconate (Hibiclens For Decolonization -) 1 applic TP HS [facility] Last Admin: 06/16/17 21:45 Dose: 1 applic Chlorpromazine HCl (Thorazine Injection -) 25 mg IM Q6H PRN PRN Reason: NAUSEA AND/OR VOMITING Last Admin: 06/17/17 01:56 Dose: 25 mg Heparin Sodium (Porcine) (Heparin -) 5,000 unit SQ BID [facility] Last Admin: 06/17/17 09:29 Dose: 5,000 unit Hydromorphone HCl (Dilaudid Injection -) 1 mg IVPUSH Q4H PRN PRN Reason: PAIN Last Admin: 06/17/17 09:01 Dose: 1 mg Piperacillin Sod/Tazobactam Sod (Zosyn 3.375gm Ivpb (Pre-Docked)) 50 mls @ 100 mls/hr IVPB Q8H-IV [facility]EE[facility] PRN Reason: Protocol Last Admin: 06/17/17 09:29 Dose: 100 mls/hr Mupirocin (Bactroban Ointment (For Decolonization) -) 1 applic NS BID [facility] Stop: 06/18/17 21:59 Last Admin: 06/17/17 09:30 Dose: 1 applic Oxycodone HCl (Roxicodone -) 10 mg PO Q6H PRN PRN Reason: PAIN Last Admin: 06/17/17 01:55 Dose: 10 mg Pantoprazole Sodium (Protonix -) 40 mg PO DAILY [facility] Last Admin: 06/17/17 09:29 Dose: 40 mg - Objective Vital Signs: Vital Signs Temperature 98.4 F 06/17/17 06:00 Pulse Rate 72 06/17/17 08:00 Respiratory Rate 17 06/17/17 08:00 Blood Pressure 95/51 06/17/17 08:00 O2 Sat by Pulse Oximetry (%) 97 06/16/17 21:00 Constitutional: Yes: Well Nourished, No Distress Eyes: Yes: Conjunctiva Clear, EOM Intact HENT: Yes: WNL, Atraumatic, Normocephalic Neck: Yes: WNL, Supple, Trachea Midline Cardiovascular: Yes: WNL, Regular Rate and Rhythm, S1, S2. No: Bruit, JVD, Murmur, Rub Respiratory: Yes: WNL, Regular, CTA Bilaterally Gastrointestinal: Yes: WNL, Normal Bowel Sounds, Soft. 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 Code(s): T81.4XXA - INFECTION FOLLOWING A PROCEDURE, INITIAL ENCOUNTER (3) Dural tear Assessment/Plan: S/P repair Code(s): G96.11 - DURAL TEAR (4) Back pain Assessment/Plan: H/O Disc herniation s/o surgery and post op infection improving on IV abx/. Code(s): M54.9 - DORSALGIA, UNSPECIFIED
--- NOTE | 2017-06-17 13:35 | PN ---
Progress Note (short form) - Note Progress Note: PULM / CCM Pt Seen & Examined in ICU. Pt found sitting up right in bed, eating. 6-8 Family members @ bedside. Everyone laughing talking. Pt requesting copious opiate analgesics from ICU Nurse. Pt states feeling much better. Active Medications Acetaminophen/Butalbital/Caffeine (Fioricet -) 1 tablet PO Q6H PRN PRN Reason: FEVER OR PAIN Last Admin: 06/17/17 09:41 Dose: 1 tablet Chlorhexidine Gluconate (Hibiclens For Decolonization -) 1 applic TP HS [facility] Last Admin: 06/16/17 21:45 Dose: 1 applic Chlorpromazine HCl (Thorazine Injection -) 25 mg IM Q6H PRN PRN Reason: NAUSEA AND/OR VOMITING Last Admin: 06/17/17 01:56 Dose: 25 mg Heparin Sodium (Porcine) (Heparin -) 5,000 unit SQ BID [facility] Last Admin: 06/17/17 09:29 Dose: 5,000 unit Hydromorphone HCl (Dilaudid Injection -) 1 mg IVPUSH Q4H PRN PRN Reason: PAIN Last Admin: 06/17/17 09:01 Dose: 1 mg Piperacillin Sod/Tazobactam Sod (Zosyn 3.375gm Ivpb (Pre-Docked)) 50 mls @ 100 mls/hr IVPB Q8H-IV [facility]EE[facility] PRN Reason: Protocol Last Admin: 06/17/17 09:29 Dose: 100 mls/hr Mupirocin (Bactroban Ointment (For Decolonization) -) 1 applic NS BID [facility] Stop: 06/18/17 21:59 Last Admin: 06/17/17 09:30 Dose: 1 applic Oxycodone HCl (Roxicodone -) 10 mg PO Q6H PRN PRN Reason: PAIN Last Admin: 06/17/17 11:39 Dose: 10 mg Oxycodone HCl (Roxicodone -) 10 mg PO Q6H PRN PRN Reason: PAIN LEVEL 6-10 Stop: 06/18/17 14:13 Pantoprazole Sodium (Protonix -) 40 mg PO DAILY [facility] Last Admin: 06/17/17 09:29 Dose: 40 mg EXAM: V/S Temp 98.1 F 06/17/17 14:00 Pulse 74 06/17/17 14:00 Resp 18 06/17/17 14:00 BP 113/64 06/17/17 12:00 Pulse Ox 97 06/17/17 09:00 I's & O's 06/16/17 06/17/17 06/17/17 23:59 11:59 23:59 Intake Total 2200 170 Output Total 640 50 Balance 1560 120 Weight 97.4 kg Intake: IV 750 Lactated Ringers Solution 750 1,000 ml @ 75 mls/hr IV ASDIR LEENA Rx#:[id number] IVPB 200 50 Oral 1250 120 Output: Drainage 40 50 Left 10 30 Right 30 20 Urine 600 Void 600 Other: Voiding Method Toilet Toilet Toilet # Unmeasured Voids Void 1 2 Bowel Movement Yes # Bowel Movements 1 Weight Measurement Method Built in [facility] GEN: Healthy, fit 41 y/o man, CA+OX3, NAD HEENT: PERRL, an-icteric, O-P Clear PULM: CTAB CV: nml S1 S2, RR, unable to appreciate G/M/R ABD: + BS S/S N/T N/D X4Q BACK: Lumbar SILVER w/ scanty minimal sero-sanguinous drainage EXT: no edema CBC, BMP 06/17/17 05:00 06/17/17 05:00 MICRO 06/12/17 21:35 Blood - Peripheral Venous Blood Culture - Preliminary NO GROWTH OBTAINED AFTER 96 HOURS, INCUBATION TO CONTINUE FOR 1 DAYS. 06/12/17 21:35 Blood - Peripheral Venous Blood Culture - Preliminary NO GROWTH OBTAINED AFTER 96 HOURS, INCUBATION TO CONTINUE FOR 1 DAYS. 06/12/17 21:22 Abscess Gram Stain - Final 06/12/17 21:22 Abscess Wound Culture - Final Pseudomonas Aeruginosa Staphylococcus Aureus 06/13/17 00:17 Back Gram Stain - Final 06/13/17 00:17 Back Wound Culture - Final Staphylococcus Aureus 06/13/17 11:29 Urine - Urine Clean Catch Urine Culture - Final NO GROWTH OBTAINED ASSESS: -S/p L4-L5 and L3-L4 partial laminectomy on 05/28 w/ Dr. Jones. -Present to ED on 06/12 w/ CSF leak & pseudomeningocele -Now s/p pseudomeningocele repair & washout 06/13 PLAN: - Cont Lumbar Sx wound care a/p Dr. Jones. - Cont SILVER Drain a/p Dr. Jones. - Cont Post-Op pain control - Cont Zo (Wound w/ MSSA & PSA) X 10 -14 Days - Advance diet as tolerated - DVT prophylaxis - Immediate d/c --> Floor - Dr. Jones to follow [facility] ICU PULM / CCM [id number] Critical Care Total Critical Care Time (in minutes): 38 Critical Care Statement: The care of this patient involved high complexity decision making to prevent further life threatening deterioration of the patient 's condition and/or to evaluate & treat vital organ system(s) failure or risk of failure.
[2017-06-17] MEDS ORDERED: chlorproMAZINE HCL 25 MG/1 ML AMP IM PRN (15:41)
--- NOTE | 2017-06-17 17:31 | PN ---
Progress Note, Physician History of Present Illness: Pt transferred out of ICU. States he feels better, is ambulating. No fever/ chills. Pain is controlled. - Current Medication List Current Medications: Active Medications Acetaminophen/Butalbital/Caffeine (Fioricet -) 1 tablet PO Q6H PRN PRN Reason: FEVER OR PAIN Chlorhexidine Gluconate (Hibiclens For Decolonization -) 1 applic TP HS [facility] Chlorpromazine HCl (Thorazine Injection -) 25 mg IM Q6H PRN PRN Reason: NAUSEA AND/OR VOMITING Heparin Sodium (Porcine) (Heparin -) 5,000 unit SQ BID [facility] Hydromorphone HCl (Dilaudid Injection -) 1 mg IVPUSH Q4H PRN PRN Reason: PAIN Last Admin: 06/17/17 16:05 Dose: 1 mg Piperacillin Sod/Tazobactam Sod (Zosyn 3.375gm Ivpb (Pre-Docked)) 50 mls @ 100 mls/hr IVPB Q8H-IV [facility] PRN Reason: Protocol Oxycodone HCl (Roxicodone -) 10 mg PO Q6H PRN PRN Reason: PAIN LEVEL 6-10 Stop: 06/18/17 14:13 Pantoprazole Sodium (Protonix -) 40 mg PO DAILY [facility] - Objective Vital Signs: Vital Signs Temperature 98.1 F 06/17/17 14:00 Pulse Rate 87 06/17/17 16:00 Respiratory Rate 18 06/17/17 16:00 Blood Pressure 126/76 06/17/17 16:00 O2 Sat by Pulse Oximetry (%) 97 06/17/17 09:00 Constitutional: Yes: No Distress HENT: Yes: WNL Neck: Yes: Supple Cardiovascular: Yes: Regular Rate and Rhythm Respiratory: Yes: CTA Bilaterally Gastrointestinal: Yes: Normal Bowel Sounds, Soft Genitourinary: Yes: WNL Extremities: Yes: WNL Wound/Incision: Yes: Dressing Dry and Intact Neurological: Yes: Alert, Oriented Labs: CBC, BMP 06/17/17 05:00 06/17/17 05:00 INR, PTT INR 1.40 (0.82-1.09) H 06/12/17 21:13 Problem List - Problems (1) Surgical site infection Code(s): T81.4XXA - INFECTION FOLLOWING A PROCEDURE, INITIAL ENCOUNTER (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
[2017-06-17] MEDS: LACTATED RINGERS SOLUTION 1,000 ML IV SCH (17:38)
[2017-06-17] MEDS ORDERED: PIPERACILLIN/TAZOB 3.375 GM 50 ML IVPB SCH (18:00)
[2017-06-17] MEDS ORDERED: MUPIROCIN 2% TOPICAL OINTMENT FOR DECOLONIZATION NS SCH (22:00)
[2017-06-17] MEDS ORDERED: CHLORHEXIDINE GLUCONATE 4% CLEANSER FOR DECOLONIZATION TP SCH (22:00)
[2017-06-18] MEDS ORDERED: DEXTROSE 5%-WATER - 50 ML IVPB ONE ×3 (02:00→18:01)
[2017-06-18] MEDS ORDERED: PIPERACILLIN/TAZOBACTAM 3.375 GM VIAL IVPB ONE ×3 (02:00→18:01)
[2017-06-18] MEDS: PIPERACILLIN/TAZOB 3.375 GM 3.375 GM in DEXTROSE 5%-WATER - 50 ML IVPB SCH ×3 (02:06→18:51)
[2017-06-18] MEDS: HYDROmorphone HCL CARPU-JECT 1 MG/1 ML DISP.SYRIN IVPUSH PRN ×4 (04:09→22:20)
[2017-06-18] MEDS: ACETAMINOPHEN/CAFFEINE/BUTALBITAL 1 TAB PO PRN ×3 (04:17→18:09)
[2017-06-18] MEDS: oxyCODONE HCL 5 MG TABLET PO PRN ×2 (06:15→14:07)
[2017-06-18 07:48] LABS: MCH 29.5 pg (25.7-33.7); MEAN CELL VOLUME 89.4 fl (80-96); MEAN PLT VOLUME 7.4 fl (7.5-11.1); PLATELET COUNT 314 K/MM3 (134-434); RDW 13.4 % (11.9-15.9); WHITE BLOOD COUNT 6.6 K/mm3 (4.0-10.0)
[2017-06-18 08:12] LABS: CALCIUM 8.2 mg/dL (8.5-10.1)
[2017-06-18 08:17] LABS: ANION GAP 6 (8-16); CO2 30 mmol/L (21-32); CREATININE 0.8 mg/dL (0.7-1.3); GLUCOSE,RANDOM 62 mg/dL (74-106)
--- NOTE | 2017-06-18 09:08 | PN ---
Physical Exam: SUBJECTIVE: Patient seen and examined Feels better today, is able to walk around. No more photophobia. Says he has intermittent headache and leg pain though. OBJECTIVE: Vital Signs Period Temp Pulse Resp BP Sys/Silva Pulse Ox Last 24 Hr 98.1 F-98.4 F 62-90 18-19 113-140/64-78 99 GENERAL: Awake, alert, and fully oriented, in no acute distress. HEAD: Normal with no signs of trauma. EYES:No Photophobia, Pupils equal, and reactive to light, extraocular movements intact, sclera anicteric, conjunctiva clear. No lid lag. EARS, NOSE, THROAT: Ears normal, nares patent, oropharynx clear without exudates. Moist mucous membranes. NECK: No neck stiffness LUNGS: Breath sounds equal, clear to auscultation bilaterally. No wheezes, and no crackles. No accessory muscle use. HEART: Regular rate and rhythm, normal S1 and S2 without murmur, rub or gallop. ABDOMEN: Soft, nontender, not distended, normoactive bowel sounds, no guarding, no rebound, no masses. No hepatomegaly or splenomegaly. MUSCULOSKELETAL: Lower midline back dressing with drain in place, draining sero- sanguinous fluid. Normal range of motion Appropriate tenderness over wound site UPPER EXTREMITIES: 2+ pulses, warm, well-perfused. No cyanosis. No clubbing. No peripheral edema. LOWER EXTREMITIES: 2+ pulses, warm, well-perfused. No calf tenderness. No peripheral edema. Except as documented above for L NEUROLOGICAL: Cranial nerves II-XII intact. No facial droop seen. Normal speech. Gait not observed. PSYCHIATRIC: Cooperative. Good eye contact. Appropriate mood and affect. SKIN: Warm, dry, normal turgor, no rashes or lesions noted, normal capillary refill. Laboratory Results - last 24 hr 06/18/17 06/18/17 07:00 07:00 WBC 6.6 RBC 4.61 Hgb 13.6 Hct 41.2 MCV 89.4 MCH 29.5 MCHC 33.0 RDW 13.4 Plt Count 314 D MPV 7.4 L Neutrophils % No Result Required. Lymphocytes % No Result Required. Sodium 141 Potassium 4.5 D Chloride 105 Carbon Dioxide 30 Anion Gap 6 L BUN 11 D Creatinine 0.8 Random Glucose 62 L D Calcium 8.2 L Active Medications Generic Name Dose Route Start Last Admin Trade Name Freq PRN Reason Stop Dose Admin Acetaminophen/Butalbital/Caffeine 1 tablet 06/17/17 15:41 06/18/17 04:17 Fioricet - PO 1 tablet Q6H PRN Administration FEVER OR PAIN Chlorhexidine Gluconate 1 applic 06/17/17 22:00 06/17/17 21:25 Hibiclens For Decolonization - TP Not Given HS LEENA Chlorpromazine HCl 25 mg 06/17/17 15:41 Thorazine Injection - IM Q6H PRN NAUSEA AND/OR VOMITING Heparin Sodium (Porcine) 5,000 unit 06/17/17 22:00 06/17/17 21:18 Heparin - SQ 5,000 unit BID LEENA Administration Hydromorphone HCl 1 mg 06/17/17 15:41 06/18/17 04:09 Dilaudid Injection - IVPUSH 1 mg Q4H PRN Administration PAIN Piperacillin Sod/Tazobactam 50 mls @ 100 mls/hr 06/18/17 02:00 06/18/17 02:06 Sod 3.375 gm/ Dextrose IVPB 100 mls/hr Q8H-IV LEENA Administration Protocol Oxycodone HCl 10 mg 06/17/17 14:14 06/18/17 06:15 Roxicodone - PO 06/18/17 14:13 10 mg Q6H PRN Administration PAIN LEVEL 6-10 Pantoprazole Sodium 40 mg 06/18/17 10:00 Protonix - PO DAILY LEENA ASSESSMENT/PLAN: A 41 year old male who presented with a history of fever, N/V, back pain and CSF leak s/p laminectomy 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: White counts within normal Continue zosyn- for PICC line to continue IV per ID For drain removal today- Done by Surgical team #Barretts esophagus: No barretts esophagus seen on EGD Patient does have esophagitis though Appetite improved Pantoprazole 40 mg #Headache: Said he feels a bit better On pain management #Chronic pain Consult Dr Hooker for outpatient pain management #Deconditioning PT to ensure adequate ambulation #Hypokelemia Resolved #Prophylaxis DVT: Heparin SQ GI: Pantoprazole Visit type - Emergency Visit Emergency Visit: Yes ED Registration Date: 06/13/17 Care time: The patient presented to the Emergency Department on the above date and was hospitalized for further evaluation of their emergent condition. - New Patient This patient is new to me today: No - Critical Care Critical Care patient: No - Discharge Referral Referred to [facility] No
[2017-06-18 09:39] LABS: MYELOCYTE 1 % (0-2); NUCLEATED RED BLOOD CELL 1 % (0-0); PLATELET ESTIMATE ADEQUATE (NORMAL); TOTAL CELLS COUNTED 100
[2017-06-18] MEDS: PANTOPRAZOLE 40 MG TABLET (FP) PO SCH (10:23)
[2017-06-18] MEDS: HEPARIN NA (PORCINE) 5,000 UNITS/ML 1ML VIAL SQ SCH ×2 (10:23→22:21)
--- NOTE | 2017-06-18 13:08 | PN ---
Progress Note, Physician History of Present Illness: patient doing much better no complaints tolerating diet - Current Medication List Current Medications: Active Medications Acetaminophen/Butalbital/Caffeine (Fioricet -) 1 tablet PO Q6H PRN PRN Reason: FEVER OR PAIN Last Admin: 06/18/17 11:00 Dose: 1 tablet Chlorhexidine Gluconate (Hibiclens For Decolonization -) 1 applic TP HS [facility] Last Admin: 06/17/17 21:25 Dose: Not Given Chlorpromazine HCl (Thorazine Injection -) 25 mg IM Q6H PRN PRN Reason: NAUSEA AND/OR VOMITING Heparin Sodium (Porcine) (Heparin -) 5,000 unit SQ BID [facility] Last Admin: 06/18/17 10:23 Dose: 5,000 unit Hydromorphone HCl (Dilaudid Injection -) 1 mg IVPUSH Q4H PRN PRN Reason: PAIN Last Admin: 06/18/17 10:22 Dose: 1 mg Piperacillin Sod/Tazobactam (Sod 3.375 gm/ Dextrose) 50 mls @ 100 mls/hr IVPB Q8H-IV LEENA PRN Reason: Protocol Last Admin: 06/18/17 11:32 Dose: 100 mls/hr Oxycodone HCl (Roxicodone -) 10 mg PO Q6H PRN PRN Reason: PAIN LEVEL 6-10 Stop: 06/18/17 14:13 Last Admin: 06/18/17 06:15 Dose: 10 mg Pantoprazole Sodium (Protonix -) 40 mg PO DAILY [facility] Last Admin: 06/18/17 10:23 Dose: 40 mg - Objective Vital Signs: Vital Signs Temperature 98.1 F 06/18/17 09:00 Pulse Rate 71 06/18/17 09:00 Respiratory Rate 20 06/18/17 09:00 Blood Pressure 133/79 06/18/17 09:00 O2 Sat by Pulse Oximetry (%) 99 06/17/17 21:00 Constitutional: Yes: No Distress, Calm Cardiovascular: Yes: Regular Rate and Rhythm Respiratory: Yes: Regular, CTA Bilaterally Gastrointestinal: Yes: Normal Bowel Sounds, Soft Musculoskeletal: Yes: WNL Extremities: Yes: WNL Wound/Incision: Yes: Dressing Dry and Intact, Other (drainage tube in place) Neurological: Yes: Alert, Oriented Psychiatric: Yes: Alert, Oriented Labs: CBC, BMP 06/18/17 07:00 06/18/17 07:00 INR, PTT INR 1.40 (0.82-1.09) H 06/12/17 21:13 Assessment/Plan patient post op from wound infection, and pseudomenigocele now in the icu, stable Recent Lumbar Laminectomy CSF Leak s/p Pseudomeningocele Repair/Washout wound infection msa and gm negative wound infection all cx reports noted plan continue zosyn patient will need 4 weeks total drainage tube still draining
--- NOTE | 2017-06-18 13:36 | PN ---
Teaching Attending Note Name of Resident: Nakita Naldo Ivy ATTENDING PHYSICIAN STATEMENT I saw and evaluated the patient. I reviewed the resident's note and discussed the case with the resident. I agree with the resident's findings and plan as documented. SUBJECTIVE:c/o pain. states he only had mild relief with pain medication and is unable to move much due to the pain. pain radiates down the L leg "pins and needles". was seeing Pain management in [place]. denies CP, SOB< fever, chills, N/V/C/D OBJECTIVE: Last Vital Signs Temp Pulse Resp BP Pulse Ox 98.1 F 71 20 133/79 99 06/18/17 09:00 06/18/17 09:00 06/18/17 09:00 06/18/17 09:00 06/17/17 21:00 General NAD CV S1 S2 RRR no murmur/rub/gallop Lungs CTA B/L no wheezing/rales/rhonchi Extremities able to move all extremities. sensation grossly intact Back no tenderness along the spine. +surgical lexii are intact with no drainage noted. 2 SILVER drains with serosangenuous drainage ASSESSMENT AND PLAN: 41yo F wtih PMH lumbar compression fracture s/p laminectomy 6 weeks earlier and epidural injections presented with CSF leak and pseudomeningocele 1. Pseudomeningocele- s/p wound irrigation on 06/13 with washout and SILVER drain x2. with polyorgansims of MSSA and pseudomonas. plan is for possible SILVER drain removal today per Neurosurgery note. further management per them. on Zosyn day 6. will need to d/w ID about abx choice and duration. will consult pain managment to optimize pain control. PT evaluation to evaluate if will need JUSTICE placement. 2. hypokalmeia- resolved 3. DVT ppx- hep sq
--- NOTE | 2017-06-18 14:45 | PROC ---
Procedure Note Procedure: Per phone conversation with Dr. Jerry, he has asked us to remove both his JPs. Gianluca x 2 removed with distal tips intact. Dermabond applied to both ports as well as initial incision (reinforcement). Aquacel dressing applied. Spoke with Dr. Mayorga, patient will need PICC placed for out-patient IV ABX. Dr. Peoples also made aware. Patient tolerated procedure well.
[2017-06-18] MEDS ORDERED: PICC LINE 8 ML FLUSH PROTOCOL IVPUSH PRN (16:10)
[2017-06-19] MEDS ORDERED: PIPERACILLIN/TAZOBACTAM 3.375 GM VIAL IVPB ONE ×3 (01:37→17:15)
[2017-06-19] MEDS ORDERED: DEXTROSE 5%-WATER - 50 ML IVPB ONE ×3 (01:38→17:15)
[2017-06-19] MEDS: PIPERACILLIN/TAZOB 3.375 GM 3.375 GM in DEXTROSE 5%-WATER - 50 ML IVPB SCH ×3 (01:48→17:38)
[2017-06-19] MEDS: HYDROmorphone HCL CARPU-JECT 1 MG/1 ML DISP.SYRIN IVPUSH PRN (02:37)
[2017-06-19] MEDS: ACETAMINOPHEN/CAFFEINE/BUTALBITAL 1 TAB PO PRN (06:09)
[2017-06-19 07:38] LABS: BASOPHIL 0.9 % (0-2.0); EOSINOPHIL 4.7 % (0-4.5); MCH 29.9 pg (25.7-33.7); MCHC 33.6 g/dl (32.0-35.9); MEAN CELL VOLUME 89.1 fl (80-96); MEAN PLT VOLUME 7.3 fl (7.5-11.1); NEUTROPHILS 58.9 % (42.8-82.8); PLATELET COUNT 347 K/MM3 (134-434); RDW 13.3 % (11.9-15.9); WHITE BLOOD COUNT 7.7 K/mm3 (4.0-10.0)
[2017-06-19 07:54] LABS: ANION GAP 9 (8-16); CALCIUM 8.6 mg/dL (8.5-10.1); CO2 29 mmol/L (21-32); GLUCOSE,RANDOM 86 mg/dL (74-106)
[2017-06-19] MEDS ORDERED: oxyCODONE HCL 5 MG TABLET PO PRN (07:58)
[2017-06-19] MEDS: oxyCODONE HCL 5 MG TABLET PO PRN ×2 (08:38→16:43)
--- NOTE | 2017-06-19 11:03 | PN ---
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 Distal esophageal biopsies - refulx esophagitis. Will follow with us as OP for Atkinson's surveillance and PPI therapy Discussed with the patient. The patient's father was at the bedside. Problem List - Problems (1) Hiccups Code(s): R06.6 - HICCOUGH (2) Reflux esophagitis Code(s): K21.0 - GASTRO-ESOPHAGEAL REFLUX DISEASE WITH ESOPHAGITIS Visit type - Emergency Visit Emergency Visit: No - New Patient This patient is new to me today: No - Critical Care Critical Care patient: No
[2017-06-19] MEDS: oxyCODONE HCL 10 MG SUSTAINED ACTING TABLET PO SCH ×2 (11:15→21:59)
[2017-06-19] MEDS: PANTOPRAZOLE 40 MG TABLET (FP) PO SCH (11:18)
--- NOTE | 2017-06-19 13:32 | PN ---
Progress Note, Physician History of Present Illness: patient mentions that he was having chills and sweating felt very cold currently better - Current Medication List Current Medications: Active Medications Acetaminophen/Butalbital/Caffeine (Fioricet -) 1 tablet PO Q6H PRN PRN Reason: FEVER OR PAIN Last Admin: 06/19/17 06:09 Dose: 1 tablet Chlorpromazine HCl (Thorazine Injection -) 25 mg IM Q6H PRN PRN Reason: NAUSEA AND/OR VOMITING Heparin Sodium (Porcine) (Heparin -) 5,000 unit SQ BID LEENA Last Admin: 06/18/17 22:21 Dose: 5,000 unit IV Flush (Picc Line Flush) 8 ml IVPUSH PRN PRN PRN Reason: Protocol Piperacillin Sod/Tazobactam (Sod 3.375 gm/ Dextrose) 50 mls @ 100 mls/hr IVPB Q8H-IV LEENA PRN Reason: Protocol Last Admin: 06/19/17 11:21 Dose: 100 mls/hr Oxycodone HCl (Oxycontin -) 10 mg PO BID [facility] Last Admin: 06/19/17 11:15 Dose: 10 mg Oxycodone HCl (Roxicodone -) 10 mg PO Q4H PRN PRN Reason: PAIN Last Admin: 06/19/17 08:38 Dose: 10 mg Pantoprazole Sodium (Protonix -) 40 mg PO DAILY [facility] Last Admin: 06/19/17 11:18 Dose: 40 mg - Objective Vital Signs: Vital Signs Temperature 98.2 F 06/19/17 06:39 Pulse Rate 68 06/19/17 08:30 Respiratory Rate 20 06/19/17 08:30 Blood Pressure 108/48 06/19/17 08:30 O2 Sat by Pulse Oximetry (%) 96 06/19/17 09:00 Constitutional: Yes: No Distress, Calm Cardiovascular: Yes: Regular Rate and Rhythm Respiratory: Yes: Regular, CTA Bilaterally Gastrointestinal: Yes: Normal Bowel Sounds, Soft Musculoskeletal: Yes: WNL Extremities: Yes: WNL Wound/Incision: Yes: Other (drain removed) Neurological: Yes: Alert, Oriented Psychiatric: Yes: Alert, Oriented Labs: CBC, BMP 06/19/17 06:30 06/19/17 06:30 INR, PTT INR 1.40 (0.82-1.09) H 06/12/17 21:13 Assessment/Plan patient post op from wound infection, and pseudomenigocele now in the icu, stable Recent Lumbar Laminectomy CSF Leak s/p Pseudomeningocele Repair/Washout wound infection msa and gm negative wound infection all cx reports noted plan continue zosyn patient will need 4 weeks total patient c/o of chills and being very cold monitor for fevers and wbc no picc line untill patient is absolutely stable rest continue as per the team
--- NOTE | 2017-06-19 15:56 | PN ---
Teaching Attending Note Name of Resident: Nakita Haynes ATTENDING PHYSICIAN STATEMENT I saw and evaluated the patient. I reviewed the resident's note and discussed the case with the resident. I agree with the resident's findings and plan as documented. SUBJECTIVE:continues to have pain in lower back radiating down his legs. denies CP, SOB, fever, chills, N/V/C?D. states he is having regular BM OBJECTIVE: Last Vital Signs Temp Pulse Resp BP Pulse Ox 98.3 F 73 18 126/84 96 06/19/17 15:43 06/19/17 15:43 06/19/17 15:43 06/19/17 15:43 06/19/17 09:00 General NAD CV S1 S2 RRR no murmur/rub/gallop Lungs CTA B/L no wheezing/rales/rhonchi Extremities able to move all extremities. sensation grossly intact Back no tenderness along the spine. +surgical lexii are intact with no drainage noted. tension dressing in place ASSESSMENT AND PLAN: 41yo F wtih PMH lumbar compression fracture s/p laminectomy 6 weeks earlier and epidural injections presented with CSF leak and pseudomeningocele 1. Pseudomeningocele- s/p wound irrigation on 06/13 with washout and SILVER drain x2. with polyorgansims of MSSA and pseudomonas. s/p SILVER drains removal yesterday. on zosyn day 7. will need 4 weeks of IV abx. will need PICC line. staple removal in 1 week in neurosurgery office. 2. intractable back pain- pt requiring high and frequent doses of narcotics. shading painter was not available yesterday due to emergency. started on oxy 10mg BID and percocet prn breakthrough pain. will d/c dilaudid. 3. hypokalmeia- now elevated. now repeat 4. DVT ppx- hep sq 5. lengthy conversation with discharge planning. [facility] vs home with home infusion company. pt is on abx requiring 3x/day which is cumbersome. also pt is having high pain requirements that have not been able to titrated down. pt also has seen shading painter in the past but does not want to continue to see him. may be difficult for him to follow up with specialist in the 1 week narcotics that being a hospitalist is able to provide at this time. pt agreeable to JUSTICE placement at this time. CM aware and referrals sent out
[2017-06-19] MEDS: HEPARIN NA (PORCINE) 5,000 UNITS/ML 1ML VIAL SQ SCH (21:59)
--- NOTE | 2017-06-19 22:25 | CONSULT ---
Consult Consult Specialty:: pain management Referred by:: hospitalist Reason for Consultation:: back and left leg pain - History of Present Illness Chief Complaint: back pain History of Present Illness: 41 yo male who had L4-L5 and L3-L4 partial laminectomy on 05/[address] Jones. Currently he has residual pain in his back and left leg. His regimen of oxycontin and oxycodone is helping. Pain score 5/10 - Past Medical History Musculoskeletal: Yes: Chronic low back pain - Past Surgical History Additional Surgical History: see HP - Alcohol/Substance Use Hx Alcohol Use: No - Smoking History Smoking history: Never smoked Have you smoked in the past 12 months: No If you are a former smoker, when did you quit?: 2007 Home Medications - Allergies Allergies/Adverse Reactions: Allergies Allergy/AdvReac Type Severity Reaction Status Date / Time No Known Drug Allergies Allergy Verified 05/28/17 15:06 - Home Medications Home Medications: Ambulatory Orders Oxycodone HCl [Roxicodone -] 10 mg PO Q6H PRN #30 tablet MDD 3 05/30/17 Physical Exam Vital Signs: Vital Signs Temperature 97.9 F 06/19/17 16:50 Pulse Rate 73 06/19/17 16:50 Respiratory Rate 20 06/19/17 16:50 Blood Pressure 139/81 06/19/17 16:50 O2 Sat by Pulse Oximetry (%) 96 06/19/17 09:00 Musculoskeletal: Yes: Other (SLR positive at 30 deg on left leg) Labs: CBC, BMP 06/19/17 06:30 06/19/17 06:30 Assessment/Plan Post operative back pain Lumbar radiculopathy 1. Continue oxycontin 10mg PO q12h and oxycodone 10mg PO q4h prn pain 2. Consider lyrica 50mg PO q8h for residual nerve pain in left leg 3.Tylenol prn pain 4. Bowel regimen to prevent opioid induced constipation
[2017-06-20] MEDS: oxyCODONE HCL 5 MG TABLET PO PRN ×4 (00:22→17:06)
[2017-06-20] MEDS ORDERED: PIPERACILLIN/TAZOBACTAM 3.375 GM VIAL IVPB ONE ×3 (01:28→16:39)
[2017-06-20] MEDS ORDERED: DEXTROSE 5%-WATER - 50 ML IVPB ONE ×3 (01:28→16:39)
[2017-06-20] MEDS: PIPERACILLIN/TAZOB 3.375 GM 3.375 GM in DEXTROSE 5%-WATER - 50 ML IVPB SCH ×4 (01:34→17:14)
[2017-06-20] MEDS: ACETAMINOPHEN/CAFFEINE/BUTALBITAL 1 TAB PO PRN (01:34)
[2017-06-20 09:11] VITALS: TEMP 98.1
[2017-06-20] MEDS: oxyCODONE HCL 10 MG SUSTAINED ACTING TABLET PO SCH (09:49)
[2017-06-20] MEDS: PANTOPRAZOLE 40 MG TABLET (FP) PO SCH (09:51)
[2017-06-20] MEDS: HEPARIN NA (PORCINE) 5,000 UNITS/ML 1ML VIAL SQ SCH (09:55)
[2017-06-20] MEDS ORDERED: DOCUSATE SODIUM 100 MG CAPSULE (FP) PO SCH (10:00)
[2017-06-20] MEDS ORDERED: PREGABALIN 50 MG CAPSULE PO SCH (14:00)
--- NOTE | 2017-06-20 14:13 | PN ---
Progress Note, Physician History of Present Illness: patient doing well denies any chills and fevers says he is perfect - Current Medication List Current Medications: Active Medications Acetaminophen/Butalbital/Caffeine (Fioricet -) 1 tablet PO Q6H PRN PRN Reason: FEVER OR PAIN Last Admin: 06/20/17 01:34 Dose: 1 tablet Chlorpromazine HCl (Thorazine Injection -) 25 mg IM Q6H PRN PRN Reason: NAUSEA AND/OR VOMITING Docusate Sodium (Colace -) 100 mg PO DAILY [facility] Last Admin: 06/20/17 09:49 Dose: 100 mg Heparin Sodium (Porcine) (Heparin -) 5,000 unit SQ BID [facility] Last Admin: 06/20/17 09:55 Dose: Not Given IV Flush (Picc Line Flush) 8 ml IVPUSH PRN PRN PRN Reason: Protocol Piperacillin Sod/Tazobactam (Sod 3.375 gm/ Dextrose) 50 mls @ 100 mls/hr IVPB Q8H-IV LEENA PRN Reason: Protocol Last Admin: 06/20/17 09:51 Dose: 100 mls/hr Oxycodone HCl (Oxycontin -) 10 mg PO BID [facility] Last Admin: 06/20/17 09:49 Dose: 10 mg Oxycodone HCl (Roxicodone -) 10 mg PO Q4H PRN PRN Reason: PAIN Last Admin: 06/20/17 12:04 Dose: 10 mg Pantoprazole Sodium (Protonix -) 40 mg PO DAILY [facility] Last Admin: 06/20/17 09:51 Dose: 40 mg Pregabalin (Lyrica -) 50 mg PO TID [facility] Last Admin: 06/20/17 14:09 Dose: 50 mg - Objective Vital Signs: Vital Signs Temperature 98.1 F 06/20/17 08:30 Pulse Rate 68 06/20/17 08:30 Respiratory Rate 18 06/20/17 08:30 Blood Pressure 98/66 06/20/17 09:15 O2 Sat by Pulse Oximetry (%) 97 06/19/17 21:00 Constitutional: Yes: No Distress, Calm Cardiovascular: Yes: Regular Rate and Rhythm Respiratory: Yes: Regular, CTA Bilaterally Gastrointestinal: Yes: Normal Bowel Sounds, Soft Musculoskeletal: Yes: WNL Extremities: Yes: WNL Neurological: Yes: Alert, Oriented Psychiatric: Yes: Alert, Oriented Labs: CBC, BMP 06/19/17 06:30 06/19/17 06:30 INR, PTT INR 1.40 (0.82-1.09) H 06/12/17 21:13 Assessment/Plan patient post op from wound infection, and pseudomenigocele now in the icu, stable Recent Lumbar Laminectomy CSF Leak s/p Pseudomeningocele Repair/Washout wound infection msa and gm negative wound infection all cx reports noted plan continue zosyn patient will need 4 weeks total patient can go for the picc line patient needs to get cbc,bmp crp esr weekly
--- NOTE | 2017-06-20 15:34 | PN ---
Teaching Attending Note Name of Resident: Nakita Haynes ATTENDING PHYSICIAN STATEMENT I saw and evaluated the patient. I reviewed the resident's note and discussed the case with the resident. I agree with the resident's findings and plan as documented. SUBJECTIVE: no fever ro chills, has no abd pain or SOB. has Llower back pain with L LE pain , which is much better than before. able to ambulate and has no bowel or bladder dysfunction OBJECTIVE: NAD CV: RRR. Lung s: CTAB Ext: No edema , or erythema Back with mid line surgical wound in lumbo-sacral area with lexii, and no discharge . clean surrounding skin. no erythema Neuro of LE : strength 5/5 with hip flexion , knee flexion and extension , ankle plantar flexion bilaterally. R dorsiflexion 5/5 , L dorseflexion 3/5 . nl sensation to light touch. Neg Babinski's b/l. ankle jerk 1+ b/l, knee jerk 2+ b/l ASSESSMENT AND PLAN: 41 y/o man with h/o L compression Fx , s/p laminectomy about 6 weeks prior to presentation , who presneted with CSF leak and was diagnosed with infected pseudomeningiocele. 1- Infected pseudomeningiocele: no fever or chills. No leukocytosis. Neuro exam in LE is notable fro weak L dorsiflexion only. skin is intact around the Lumbosacral wound , there is no bowel or bladder dysfunction - PICC line today - cont zosyn fro 3 more weeks ( total of 4 ) - weekly CMP, ESR, CRP, CBC - f/u with neuro sx for staple removal in 1 week - follow up with ID - pain control with oxycodonen and oxycontin .seen by Pain Mgt 2- GI issues: gastric ulcers, - Atkinson's esophagus. PPI . avoid NSAIDs - follow up with GI Dr. Beck as outpt - prelim Bx Neg for HP , or dysplasia 3- hyperkalemia yesterday. repeat today . not on any meds that can affect K dispo : d/c planning d/w him, He now changed his mind and wants to go home. He understands the need to administer the Abx TID. DC today if K is NL or stable
[2017-06-20 15:43] VITALS: BP 125/88; PULSE 91
[2017-06-20 16:43] LABS: ANION GAP 7 (8-16); CO2 26 mmol/L (21-32); CREATININE 0.9 mg/dL (0.7-1.3); GLUCOSE,RANDOM 88 mg/dL (74-106)
--- NOTE | 2017-06-20 17:59 | CONSULT ---
Consult Detox [facility] - Alcohol/Substance Use Hx Alcohol Use: No - Past Medical History Musculoskeletal: Yes: Chronic low back pain - Past Surgical History Additional Surgical History: see HP
--- NOTE | 2017-06-20 18:04 | DS ---
Physical Exam: SUBJECTIVE: Patient seen and examined No new complaint today. OBJECTIVE: Vital Signs Period Temp Pulse Resp BP Sys/Silva Pulse Ox Last 24 Hr 98 F-98.1 F 66-91 18-20 98-145/58-111 97-100 PHYSICAL EXAM GENERAL: The patient is awake, alert, and fully oriented, in no acute distress. HEAD: Normal with no signs of trauma. EYES: PERRL, extraocular movements intact, sclera anicteric, conjunctiva clear. ENT: Ears normal, nares patent, oropharynx clear without exudates, moist mucous membranes. LUNGS: Breath sounds equal, clear to auscultation bilaterally, no wheezes, no crackles, no accessory muscle use. HEART: Regular rate and rhythm, S1, S2 without murmur, rub or gallop. ABDOMEN: Soft, nontender, nondistended, normoactive bowel sounds, no guarding, no rebound, no hepatosplenomegaly, no masses. EXTREMITIES: 2+ pulses, warm, well-perfused, no edema. NEUROLOGICAL: Cranial nerves II through XII grossly intact. Normal speech, gait not observed. PSYCH: Normal mood, normal affect. SKIN: Warm, dry, normal turgor, no rashes or lesions noted. Musculoskeletal: Lower midline back dressing in place, clean. Normal range of motion except for chronic limitation of L foot dorsiflexion (present prior to admission). LABS Laboratory Results - last 24 hr 06/20/17 15:30 Sodium 138 Potassium 4.8 Chloride 105 Carbon Dioxide 26 Anion Gap 7 L BUN 8 Creatinine 0.9 Random Glucose 88 Calcium 9.0 HOSPITAL COURSE: Date of Admission:06/13/17 Date of Discharge: 06/20/17 A 41 year old male with PMHx of barretts esophagus, who presented with a history of fever, N/V, back pain and CSF leak s/p laminectomy, pseudomeningocele , and discectomy at L34, L45 and L5S1, admitted for sepsis secondary to surgical wound infection/abscess with staph aureus and pseudomonas. He had a washout of the wound and was treated for 8 days with iv. zosyn 3.35g Q8H, while in the hospital, to complete a total of 1 month of zosyn. His pain was managed with both intravenous and PO opiates. While he was here, he had intractable hiccups, with severe acid reflux requiring an EGD, which showed gastric ulcers, acid reflux and barretts esophagus (without atypical cells on biopsy). Surgical site: He is to follow up with his neurosurgeon- Dr Jolly in one week for removal of lexii in his back Antibiotics: He is being discharged to [facility] to complete 20 days of zosyn Q8Hs. He will follow up with his infectious disease doctor- Dr Mayorga in a week Pain: He is to follow up with his pain management doctor in a week for adequate pain control in one week GI: He is to follow up with his GI doctor -Dr Beck for his gastric ulcers, acid reflux and barretts esophagus in one week PCP: He is to follow up with his PCP- Dr Nicholson in one week to have weekly blood samples drawn for CBC, ESR, CRP, LFTs, while on the antibiotic Minutes to complete discharge: 45 Discharge Summary Reason For Visit: SEPSIS, POST OPERATIVE WOUND INFECTION Current Active Problems Back pain (Acute) Dural tear (Acute) Hiccups (Acute) Pseudomeningocele of spinal cord (Acute) Reflux esophagitis (Acute) Sepsis (Acute) Surgical site infection (Acute) Acid reflux disease (Chronic) Barretts esophagus (Chronic) Condition: Improved - Instructions Diet, Activity, Other Instructions: You came in with infection at your surgical wound site. You had a washout and were treated with antibiotics You were also managed for your pain and barretts esophagus Wound infection: Follow-up with Dr. Jerry next week. Keep incision clean and dry. May shower but incision must be wrapped in occlusive dressing(saran wrap) to prevent getting it wet. No baths or submerging your incision in water. Antibiotics: You will continue to receive your iv medication 3 times a day for the next 20 days Please see the infectious disease doctor- Dr Mayorga to follow up your treatment Pain: You will follow up with your pain management doctor -Dr Moon in a week's time Atkinson's esophagus: You will follow up with your GI doctor- Dr. Beck in a week's time Outpatient follow up: Please follow up with your primary care doctor in 1 week If you have fever, chills or feel like you are not getting better, please see your primary care doctor or go to the nearest emergency room. - you need weekly CBC, ESR, CRP, LFTs while on antibiotics . please send results to Your PCP. - you need to follow with ID Dr. Mayorga in 1 weeks - you were prescribed pain meds for 5 days. if you require more , you need to follow with pain management or dr. Nam Referrals: Jose Mayorga MD [Staff Physician] - 1 Week (For your antibiotic management) Martínez Jerry MD, [facility] [Staff Physician] - 1 Week (See the neurosurgeon in 1 week to have your lexii removed) Dennis Moon MD [Staff Physician] - 1 Week (See your pain management doctor in one week for management of your back and leg pain) Michael Nicholson MD [Staff Physician] - 1 Week (To follow up with your blood work) Tato Beck MD [Staff Physician] - 1 Week (follow up for your reflux and for your barretts esophagus) Disposition: VNS/HOME HEALTH CARE - Home Medications Comprehensive Discharge Medication List: Ambulatory Orders Docusate Sodium [Colace -] 100 mg PO BID #60 capsule 06/20/17 Miscellaneous Drug Not In Syst [Outpatient Lab Test] 1 each ASDIR #1 misc 01/01 Oxycodone HCl 10 mg PO Q6H #20 tablet MDD 4 tab 06/20/17 Oxycodone Sr [Oxycontin] 10 mg PO BID #10 tab.er.12h MDD 20 mg 06/20/17 Piperacillin/Tazob 3.375 gm [Zosyn 3.375GM Ivpb (Pre-Docked)] 3.375 gm IVPB TID 20 Days 06/20/17 Pregabalin [Lyrica -] 50 mg PO TID #15 capsule MDD 150 06/20/17 Sennosides [Senna -] 1 tab PO BID 30 Days 06/20/17 This patient is new to me today: No Emergency Visit: No Critical Care patient: No - Discharge Referral Referred to [facility] Med P.C.: No
[2017-06-20] MEDS ORDERED: SENNOSIDES 8.6MG TABLET (FP) PO SCH (22:00)
[2017-06-21] MEDS ORDERED: DOCUSATE SODIUM 100 MG CAPSULE (FP) PO SCH (10:00)
--- NOTE | 2017-06-21 16:03 | PROC ---
Endoscopy Procedure Endoscopy procedure completed. Please see scanned procedure report.
--- NOTE | 2017-06-25 12:56 | PN ---
Progress Note (short form) - Note Progress Note: pt called office. hiccups came back and GERD on nexium 20 mg po qd not controlled. CAlled in Nexium @ 40 mg po qd 30 min ac and thorazine 25 mg po qid. [facility] @ [address] [place] [address] Problem List - Problems (1) Hiccups Code(s): R06.6 - HICCOUGH (2) Reflux esophagitis Code(s): K21.0 - GASTRO-ESOPHAGEAL REFLUX DISEASE WITH ESOPHAGITIS
== END 2017-06-20 17:46 | disposition home health service (06) | DRG 856 ==
LOC: JER 20:58 → JOR 21:19 → JASUSAT 21:19 → JERBED 06-13 01:56 → JICU 06-13 03:42 → J8W 06-17 15:20
PROVIDERS: ADMIT Internal Medicine; ATTEND Internal Medicine
PROC: 0JB70ZZ Excision of Back Subcutaneous Tissue and Fascia, Open Approach (ICD-10-PCS; principal; 2017-06-13)
PROC: 0JX70ZZ Transfer Back Subcutaneous Tissue and Fascia, Open Approach (ICD-10-PCS; 2017-06-13)
PROC: 3E1R38Z Irrigation of Spinal Canal using Irrigating Substance, Percutaneous Approach (ICD-10-PCS; 2017-06-13)
PROC: 0DB98ZX Excision of Duodenum, Via Natural or Artificial Opening Endoscopic, Diagnostic (ICD-10-PCS; 2017-06-14)
PROC: 0DB68ZX Excision of Stomach, Via Natural or Artificial Opening Endoscopic, Diagnostic (ICD-10-PCS; 2017-06-14)
PROC: 0DB58ZX Excision of Esophagus, Via Natural or Artificial Opening Endoscopic, Diagnostic (ICD-10-PCS; 2017-06-14)
PROC: 02HV33Z Insertion of Infusion Device into Superior Vena Cava, Percutaneous Approach (ICD-10-PCS; 2017-06-20)
PROC: B518ZZA Fluoroscopy of Superior Vena Cava, Guidance (ICD-10-PCS; 2017-06-20)
DX: T81.4XXA Infection following a procedure, initial encounter (principal); A41.9 Sepsis, unspecified organism; E87.2 Acidosis; Y83.9 Surgical procedure, unspecified as the cause of abnormal reaction of the patient, or of later complication, without mention of misadventure at the time of the procedure; R06.6 Hiccough; Z87.891 Personal history of nicotine dependence; R10.13 Epigastric pain; K25.9 Gastric ulcer, unspecified as acute or chronic, without hemorrhage or perforation; B95.61 Methicillin susceptible Staphylococcus aureus infection as the cause of diseases classified elsewhere; R51 Headache; K21.0 Gastro-esophageal reflux disease with esophagitis; E87.6 Hypokalemia; G89.29 Other chronic pain; M54.16 Radiculopathy, lumbar region; K22.70 Barrett's esophagus without dysplasia; G96.19 Other disorders of meninges, not elsewhere classified
CPT/HCPCS: 36415; 36569; 70450-TC; 71010-TC; 76000-TC; 76937-TC; 80048; 80053; 81003; 81015; 82553; 83605; 83735; 84100; 84484; 85025; 85027; 85610; 85730; 86850; 86900; 86901; 87040; 87070; 87086; 87186; 87205; 88305-TC; 93005; 93010; 93306-TC; 94760; 97116-GP; 97161-GP; 99284-25; C1751; J1644

== ENCOUNTER → 2019-01-08 | Day surgery (SDC) | payer OTHER ==
[2018-12-30 17:40] VITALS: BMI 30.7
[~2019-01-08] MED LIST changes: -CEFAZOLIN 2 GM in DEXTROSE 5%-WATER - 100 ML IVPB ONE; -GABAPENTIN 300 MG CAPSULE (FP) PO ONE; +LIDOCAINE HCL/PF 2% SDV 5ML VIAL ONE; +PROPOFOL 20 ML ONE; -oxyCODONE HCL 10 MG SUSTAINED ACTING TABLET PO STA
[2019-01-08 09:47] VITALS: TEMP 98.2
[2019-01-08 14:14] VITALS: BP 103/62; PULSE 76
--- NOTE | 2019-01-13 13:30 | PATH ---
Surgical Pathology Report Patient Name: RANDALL COLEMAN [facility]. Rec. #: [id number] /Age/Gender: 1975 (Age: 43) / M Account: [id number] Location: [facility] Taken: 01/08/2019 Received: 01/08/2019 Reported: 01/13/2019 Physicians: Bhumika Metz M.D. Specimen(s) Received A: BX SECOND PORTION DUODENUM B: BX GASTRIC ANTRUM C: BX GE JUNCTION Clinical History GERD, abdominal pain Postoperative diagnosis: Gastritis Final Diagnosis A. SECOND PORTION OF DUODENUM, BIOPSY: DUODENAL MUCOSA WITH NO PATHOLOGIC FINDINGS. B. GASTRIC ANTRUM, BIOPSY: MILD CHRONIC GASTRITIS. IMMUNOSTAIN IS NEGATIVE FOR H. PYLORI ORGANISMS. C. GE JUNCTION, BIOPSY: ESOPHAGOGASTRIC JUNCTIONAL (SQUAMOCOLUMNAR) MUCOSA SHOWING MILD CHRONIC INFLAMMATION. NEGATIVE FOR INTESTINAL METAPLASIA. Electronically Signed Naila Hernandez M.D. Gross Description A. Received in formalin, labeled "biopsy second portion of duodenum" is a mena, irregular portion of soft tissue measuring 0.6 cm. in greatest dimension. The specimen is submitted in toto in one cassette. B. Received in formalin, labeled "biopsy gastric antrum" is a mena, irregular portion of soft tissue measuring 0.4 cm. in greatest dimension. The specimen is submitted in toto in one cassette. C. Received in formalin, labeled "biopsy GE junction" is a mena, irregular portion of soft tissue measuring 0.3 cm. in greatest dimension. The specimen is submitted in toto in one cassette. 01/09/2019 saudi01/09/2019
== END | disposition home or self-care (01) ==
LOC: FASU-ENDO 09:19
PROVIDERS: ATTEND Internal Medicine Gastroenterology
PROC: 0DB48ZX Excision of Esophagogastric Junction, Via Natural or Artificial Opening Endoscopic, Diagnostic (ICD-10-PCS; 2019-01-08)
PROC: 0DB98ZX Excision of Duodenum, Via Natural or Artificial Opening Endoscopic, Diagnostic (ICD-10-PCS; principal; 2019-01-08 10:55)
PROC: 0DB68ZX Excision of Stomach, Via Natural or Artificial Opening Endoscopic, Diagnostic (ICD-10-PCS; 2019-01-08 10:55)
DX: K29.50 Unspecified chronic gastritis without bleeding (principal); K20.9 Esophagitis, unspecified; R10.13 Epigastric pain
CPT/HCPCS: 88305-TC; 88342-TC